=== PATIENT | female | born 1960 | race Caucasian/White ===

== ENCOUNTER 2016-11-27 11:48 | Outpatient (CLI) | payer OTHER ==
[2016-11-27] MEDS ORDERED: diphenhydrAMINE 25 MG CAP PO ONE (12:30)
[2016-11-27] MEDS ORDERED: ACETAMINOPHEN 325 MG TAB PO ONE (12:30)
== END 2016-11-27 15:40 | disposition home or self-care (01) ==
LOC: FOBOP 11:48
PROVIDERS: ATTEND Internal Medicine Hematology & Oncology
PROC: 30233N1 Transfusion of Nonautologous Red Blood Cells into Peripheral Vein, Percutaneous Approach (ICD-10-PCS; principal; 2016-11-27)
DX: D61.818 Other pancytopenia (principal)
CPT/HCPCS: 36430; P9040

== ENCOUNTER 2016-12-29 20:01 | Emergency (ER) | payer OTHER ==
--- NOTE | 2016-12-29 20:25 | EDPHY ---
HPI/HX/ROS/PE/MDM Narrative: CHIEF COMPLAINT: Fever HPI: The patient is a 56 y/o female, with a history of hemophagocytic lymphohistiocytosis, arriving in the ED at the recommendation of her PCP due to fever of 102.4F this afternoon. She has an associated mild nonproductive cough. She notes right-sided abdominal pain for the last 3.5 weeks that is sometimes aggravated by walking. No vomiting, diarrhea, dysuria. She was admitted on 10/03 for more than a month after presenting with similar symptoms. REVIEW OF SYSTEMS: Aside from elements discussed in the HPI, a comprehensive 10-point review of systems was reviewed and is negative. PMH: hemophagocytic lymphohistiocytosis, pancytopenia, neutropenic fever, transaminitis/hyperbilirubinemia, acute hypoxia, hypothyroidism, oral ulcers, kidney injury, GERD SOCIAL HISTORY: Friend at bedside Prior medical records reviewed including admission 10/03/16 for similar. Oncologist: Dr. Rutherford PHYSICAL EXAM: General:Patient is alert, in no acute distress. ENT:Eyes are normal to inspection. ENT inspection normal. Neck: Normal inspection. Full range of motion. Respiratory:No respiratory distress. Breath sounds normal bilaterally. Cardiovascular: Regular rate and rhythm. Strong peripheral pulses. Normal cap refill. Abdomen:The abdomen is nontender to palpation. There are no peritoneal signs. There are normal bowel sounds. Back: Normal to inspection. No tenderness to palpation. Skin: Normal color. No rash. Warm and dry. Extremities: Normal appearance. Full range of motion. Neuro: Oriented x3. Normal motor function. Normal sensory function. ED Course: IV established. Labs drawn including CBC, CHEM, LDH, LFT, ferritin. UA ordered. MDM: This patient presents with isolated fever at home in the absence of other specific symptoms. She has a very rare and complex immune disorder which she is well followed for by the oncology team. I spoke extensively with Dr. Madeline Patiño prior to the patient's arrival and she recommended a series of lab tests that she would like performed, including LFTs, LDH, ferritin and CBC. These are essentially all of the patient's baseline. Her ferritin level continues to decrease. Her flu swab was negative. The patient has a negative urinalysis. She has an extremely mild cough but her lungs sound clear and she is not hypoxic. I offered her chest x-ray, but we agreed to postpone this for now. I discussed the case again with Dr. Patiño after laboratory results were back and she agrees the patient can be safely discharged home tonight and they will follow her closely in clinic. She requests that we do not place the patient on empiric antibiotics at this time. Blood cultures were sent. The patient has mild fever of unknown source. - Data Points Laboratory Results: Laboratory Results 12/29/16 21:00 12/29/16 21:00 12/29/16 12/29/16 12/29/16 21:30 21:10 21:00 WBC 4.67 10^3/uL (3.80-9.50) RBC 2.51 L 10^6/uL (4.18-5.33) Hgb 9.0 L g/dL (12.6-16.3) Hct 27.2 L % (38.0-47.0) MCV 108.4 H fL (81.5-99.8) MCH 35.9 H pg (27.9-34.1) MCHC 33.1 g/dL (32.4-36.7) RDW 19.6 H % (11.5-15.2) Plt Count 131 L 10^3/uL (150-400) MPV 9.6 fL (8.7-11.7) Neut % (Auto) 59.6 % (39.3-74.2) Lymph % (Auto) 21.4 % (15.0-45.0) [place] % (Auto) 16.5 H % (4.5-13.0) Eos % (Auto) 1.7 % (0.6-7.6) Baso % (Auto) 0.4 % (0.3-1.7) Nucleat RBC Rel Count 0.0 % (0.0-0.2) Absolute Neuts (auto) 2.78 10^3/uL (1.70-6.50) Absolute Lymphs (auto) 1.00 10^3/uL (1.00-3.00) Absolute Monos (auto) 0.77 10^3/uL (0.30-0.80) Absolute Eos (auto) 0.08 10^3/uL (0.03-0.40) Absolute Basos (auto) 0.02 10^3/uL (0.02-0.10) Absolute Nucleated RBC 0.00 10^3/uL (0-0.01) Immature Gran % 0.4 % (0.0-1.1) Immature Gran # 0.02 10^3/uL (0.00-0.10) Sodium 140 mEq/L (134-144) Potassium 3.8 mEq/L (3.5-5.2) Chloride 104 mEq/L (97-110) Carbon Dioxide 27 mEq/l (22-31) Anion Gap 9 mEq/L (8-16) BUN 14 mg/dL (7-23) Creatinine 0.8 mg/dL (0.6-1.0) Estimated GFR > 60 Glucose 92 mg/dL (70-100) Calcium 8.6 mg/dL (8.5-10.4) Ferritin 863.0 H ng/mL (6.2-264.0) Total Bilirubin 0.5 mg/dL (0.1-1.4) Conjugated Bilirubin 0.1 mg/dL (0.0-0.5) Unconjugated Bilirubin 0.4 mg/dL (0.0-1.1) AST 22 IU/L (14-46) ALT 31 IU/L (9-52) Alkaline Phosphatase 52 IU/L (38-126) Lactate Dehydrogenase 564 IU/L (313-618) Total Protein 6.2 L g/dL (6.3-8.2) Albumin 3.2 L g/dL (3.5-5.0) Urine Color YELLOW Urine Appearance CLEAR Urine pH 8.0 H (5.0-7.5) Ur Specific [place] 1.009 (1.002-1.030) Urine Protein NEGATIVE (NEGATIVE) Urine Ketones NEGATIVE (NEGATIVE) Urine Blood NEGATIVE (NEGATIVE) Urine Nitrate NEGATIVE (NEGATIVE) Urine Bilirubin NEGATIVE (NEGATIVE) Urine Urobilinogen NEGATIVE EU (0.2-1.0) Ur Leukocyte Esterase NEGATIVE (NEGATIVE) Ur Culture Indicated? NOT INDICATED (NI) Urine Glucose NEGATIVE (NEGATIVE) Influenza Typ A,B (DFA) NEGATIVE FOR FLU (NEGATIVE) General Time Seen by Provider: 12/29/16 20:14 Initial Vital Signs: Initial Vital Signs Temperature (C) 37.7 C 12/29/16 20:06 Heart Rate 128 H 12/29/16 20:06 Respiratory Rate 16 12/29/16 20:06 Blood Pressure 110/80 12/29/16 20:06 O2 Sat (%) 97 12/29/16 20:06 O2 Delivery Mode Room Air Allergies/Adverse Reactions: Sulfa (Sulfonamide Antibiotics) Allergy (Mild, Verified 10/04/16 08:56) Hives Home Medications: Medication Instructions Recorded Levothyroxine [Synthroid 50 mcg 50 mcg PO DAILY06 #30 tab 11/07/16 (*)] Departure - Departure Disposition: Home, Routine, Self-Care Clinical Impression: Fever, Hemophagocytic lymphohistiocytosis Condition: Good Instructions: Fever in Adults (ED) Additional Instructions: Follow up with your oncologist this week. Return to the ED for worsening of condition. Referrals: Ronal Fuentes DO [Primary Care Provider] - As per Instructions Darien Rutherford MD [Medical Doctor] - As per Instructions Report Scribed for: Marty Lamb Report Scribed by: Cheri Cannon Date of Report: 12/29/16 Time of Report: 20:26 Physician Review and Approval Statement: Portions of this note were transcribed by an ED scribe. I personally performed the history, physical exam, and medical decision making; and confirm the accuracy of the information in the transcribed note.
[2016-12-29 21:11] LABS: % IMMATURE GRANULYOCYTES 0.4 % (0.0-1.1); ABSOLUTE IMMATURE GRANULOCYTES 0.02 10^3/uL (0.00-0.10); ADD DIFF? NO; ADD MORPH? NO; ADD SCAN? NO; ATYPICAL LYMPHOCYTE FLAG 60 (0-99); FRAGMENT RBC FLAG 20 (0-99); HEMATOCRIT 27.2 % (38.0-47.0); LEFT SHIFT FLG 0 (0-99); LIPEMIA HEMOLYSIS FLAG 80 (0-99); MEAN CELL HEMOGLOBIN 35.9 pg (27.9-34.1); MEAN CELL HEMOGLOBIN CONCENTR. 33.1 g/dL (32.4-36.7); MEAN CELL VOLUME 108.4 fL (81.5-99.8); MEAN PLATELET VOLUME 9.6 fL (8.7-11.7); PLATELET CLUMPS FLAG 0 (0-99); PLATELET COUNT 131 10^3/uL (150-400); RED BLOOD CELL COUNT 2.51 10^6/uL (4.18-5.33); RED CELL DISTRIBUTION WIDTH 19.6 % (11.5-15.2)
[2016-12-29 21:21] LABS: ALANINE AMINOTRANSFERASE 31 IU/L (9-52); ALBUMIN 3.2 g/dL (3.5-5.0); ALKALINE PHOSPHATASE 52 IU/L (38-126); ANION GAP 9 mEq/L (8-16); ASPARTATE AMINOTRANSFERASE 22 IU/L (14-46); BILIRUBIN,TOTAL 0.5 mg/dL (0.1-1.4); BILIRUBIN-CONJUGATED 0.1 mg/dL (0.0-0.5); BILIRUBIN-UNCONJUGATED 0.4 mg/dL (0.0-1.1); CALCIUM 8.6 mg/dL (8.5-10.4); CARBON DIOXIDE 27 mEq/l (22-31); CHLORIDE 104 mEq/L (97-110); CREATININE 0.8 mg/dL (0.6-1.0); GLOMERULAR FILTRATION RATE > 60; GLUCOSE 92 mg/dL (70-100); LACTATE DEHYDROGENASE 564 IU/L (313-618); POTASSIUM 3.8 mEq/L (3.5-5.2); SODIUM 140 mEq/L (134-144); TOTAL PROTEIN 6.2 g/dL (6.3-8.2)
[2016-12-29 21:32] LABS: COLOR YELLOW; LEUKOCYTE ESTERASE,URINE NEGATIVE (NEGATIVE); NITRITE,URINE NEGATIVE (NEGATIVE)
[2016-12-29 22:38] VITALS: BP 107/76; PULSE 109; RESP 16; O2SAT 96
[2016-12-29 22:39] VITALS: TEMP 99.7
== END 2016-12-29 22:37 | disposition home or self-care (01) ==
DX: D76.1 Hemophagocytic lymphohistiocytosis (principal)

== ENCOUNTER → 2017-01-07 | Outpatient (CLI) | payer OTHER | LOC: FIMAGING 15:58 | PROVIDERS: ATTEND Internal Medicine Hematology & Oncology | DX: R10.11 Right upper quadrant pain (principal); R16.0 Hepatomegaly, not elsewhere classified; R93.8 Abnormal findings on diagnostic imaging of other specified body structures; D61.818 Other pancytopenia; D76.1 Hemophagocytic lymphohistiocytosis ==

== ENCOUNTER → 2017-01-08 | Day surgery (SDC) | payer OTHER | END | disposition home or self-care (01) | LOC: FIMAGING 09:05 | PROVIDERS: ATTEND Internal Medicine Hematology & Oncology | PROC: 02HV33Z Insertion of Infusion Device into Superior Vena Cava, Percutaneous Approach (ICD-10-PCS; principal; 2017-01-08) | DX: D76.1 Hemophagocytic lymphohistiocytosis (principal) | CPT/HCPCS: 36569; 77001; C1751 ==

== ENCOUNTER 2017-01-13 10:47 | Day surgery (SDC) | payer OTHER ==
[2017-01-13] MEDS ORDERED: FLUMAZENIL 0.5 MG/5 ML MDV IVP ONE (10:59)
[2017-01-13] MEDS ORDERED: MIDAZOLAM 2 MG/2 ML VIAL ONE (11:00)
[2017-01-13] MEDS ORDERED: fentaNYL 100 MCG/2 ML INJ ONE (11:00)
[2017-01-13] MEDS ORDERED: NALOXONE HCL 0.4 MG/ML INJ ONE (11:00)
[2017-01-13] MEDS ORDERED: methylPREDNISolone SOD SUCC 125 MG/2 ML VIAL ONE (11:00)
[2017-01-13] MEDS ORDERED: NS 1,000 ML IV SCH (11:00)
[2017-01-13 11:41] LABS: HEMATOCRIT 29.5 % (38.0-47.0)
[2017-01-13 11:54] LABS: PLATELET COUNT 41 10^3/uL (150-400)
[2017-01-13 11:56] LABS: CREATININE 0.6 mg/dL (0.6-1.0); GLOMERULAR FILTRATION RATE > 60
[2017-01-13] MEDS ORDERED: IOPAMIDOL (ISOVUE-300) 100 ML BTL IV ONE (11:56)
[2017-01-13] MEDS ORDERED: methylPREDNISolone SOD SUCC 125 MG/2 ML VIAL IVP ONE (12:00)
[2017-01-13 12:02] LABS: INR 1.13 (0.83-1.16); PROTIME(PATIENT) 14.4 SEC (12.0-15.0)
[2017-01-13 12:03] LABS: APTT 31.3 SEC (23.0-38.0)
[2017-01-13 12:39] LABS: PLATELET ESTIMATE DECREASED (ADEQ)
[2017-01-13] MEDS ORDERED: oxyCODONE IR 5 MG TAB ONE ×2 (18:46→19:52)
[2017-01-13] MEDS ORDERED: oxyCODONE IR 5 MG TAB PO PRN (19:50)
[2017-01-13] MEDS ORDERED: ONDANSETRON 4 MG/2 ML VIAL IVP PRN (19:50)
[2017-01-15 15:49] LABS: FINAL DIAGNOSIS See Comments; MICROSCOPIC DESCRIPTION See Comments
== END 2017-01-13 21:22 | disposition home or self-care (01) ==
LOC: FIMAGING 10:47
PROVIDERS: ATTEND Internal Medicine Hematology & Oncology
PROC: 0FB23ZX Excision of Left Lobe Liver, Percutaneous Approach, Diagnostic (ICD-10-PCS; principal; 2017-01-13 18:00)
DX: K76.9 Liver disease, unspecified (principal); D76.1 Hemophagocytic lymphohistiocytosis; D61.818 Other pancytopenia
CPT/HCPCS: 47000; 77012; 99152; 99153; P9037; 88184-90; 88185-91; 99001-90; J1200; J2250; J2310; J3010; Q9967

== ENCOUNTER 2017-01-16 15:47 | Inpatient (IN) | payer OTHER ==
--- NOTE | 2017-01-16 15:55 | EDPHY ---
H & P Time Seen by Provider: 01/16/17 15:55 HPI/ROS: CHIEF COMPLAINT: Right facial droop HISTORY OF PRESENT ILLNESS: Patient noticed today that "my mouth is not working right" while trying to use a straw. noticed difficulty closing her left eyelid 2 days ago and their daughter Kalyani noted comments about facial asymmetry as long goes this past weekend. Otherwise no headache and no difficulty with speech in no double vision. No weakness or numbness in extremities and no vertigo or ataxia symptoms. REVIEW OF SYSTEMS: Eye: no change in vision ENT: no sore throat Cardiac: no chest pain or syncope Pulmonary: no cough or SOB Abdomen: no vomiting, diarrhea, abdominal pain Musculoskeletal: no back pain or neck pain Skin: no rash Neuro: no headache Constitutional: no fever : no urinary symptoms A comprehensive 10 point review of systems is otherwise negative aside from elements mentioned in the history of present illness. 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 Eyes: No scleral icterus. No proptosis in extraocular motion intact. ENT, Mouth: Normal mucous membranes. Respiratory: Normal respiratory effort, breath sounds equal, lungs are clear to auscultation. Cardiovascular: Regular rate and rhythm. Gastrointestinal: Abdomen is soft and non tender. Neurological: Alert and oriented x3. Normally conversant. Normal movement and sensation in all extremities.] Normal [id number] bilaterally and no pronator drift. She does have a mild right facial droop which does involve the forehead, but is able to close both eyelids fully. Skin: Warm and dry, no rashes. Musculoskeletal: No peripheral edema and no joint swelling. Psychiatric: Not agitated. Emergency Department course/MDM: Patient was sent for MRI brain to evaluate for intracranial mass or bleeding. Clinical examination initially makes Hanson's palsy more likely. Database from laboratory drawn at 11:38 a.m. today shows white blood cell count 2.4, hemoglobin 8, hematocrit 23.9, platelets 14331. Chemistries are sodium 135 , potassium 3.8, glucose 93, BUN and creatinine 20 and 0.8. 174: reviewed MRI with patient and family 1741: Discussed with Dr. Linder who will review the MRI images; his impression at 174 nonsurgical. 1744: Discussed with [place], transfuse platelets; admit to hospitalist Smoking Status: Never smoked Constitutional: Initial Vital Signs Temperature (C) 36.6 C 01/16/17 16:16 Heart Rate 91 01/16/17 16:16 Respiratory Rate 16 01/16/17 16:16 Blood Pressure 102/74 01/16/17 16:16 O2 Sat (%) 95 01/16/17 16:16 O2 Delivery Mode Room Air Allergies/Adverse Reactions: Sulfa (Sulfonamide Antibiotics) Allergy (Mild, Verified 10/04/16 08:56) Hives CT IV CONTRAST Allergy (Uncoded 01/10/17 18:21) Home Medications: Medication Instructions Recorded Levothyroxine [Synthroid 50 mcg 50 mcg PO DAILY06 #30 tab 11/07/16 (*)] Etoposide [Vepesid] 0 mg IV TH 01/10/17 Dexamethasone [Decadron 4 MG (*)] 16 mg PO DAILY 01/16/17 Medical Decision Making - Diagnostics Imaging: MRI shows 7 scattered hemorrhagic lesions in brain, [place]uani at 1730. Personally reviewed by myself. Differential Diagnosis: Differential considered including but not limited to intracranial mass, intracranial bleed, Hanson's palsy, ischemic stroke. Critical Care Time: Critical care time spent by me, Dr. Juarez, exclusively with the care of this patient was 30 minutes, exclusive of PA or LAB INSTRUCTOR time and exclusive of separate procedures. The organ system at risk was neurologic and hematologic and I ordered platelet transfusion, consultation with hospitalist and iron assorter and neurosurgeon; to stabilize the patient and prevent worsening of the patient' s condition. - Data Points Laboratory Results: 01/16/17 17:45 Patient ABO/Rh A POSITIVE Antibody Screen NEGATIVE Medications Given: Discontinued Medications Sodium Chloride (Ns) 1,000 mls @ 0 mls/hr IV ONCE ONE PRN Reason: Wide Open Stop: 01/16/17 18:26 Last Admin: 01/16/17 18:30 Dose: 1,000 mls Departure - Departure Disposition: [facility] Inpatient Acute Clinical Impression: Thrombocytopenia, Intracranial hemorrhage Condition: Serious
[2017-01-16] MEDS ORDERED: GADOBUTROL 10 ML VIAL IVP ONE (16:50)
[2017-01-16] MEDS ORDERED: NS 1,000 ML IV ONE (18:25)
[2017-01-16 18:26] LABS: % IMMATURE GRANULYOCYTES 0.4 % (0.0-1.1); ABSOLUTE IMMATURE GRANULOCYTES 0.01 10^3/uL (0.00-0.10); ADD DIFF? NO; ADD MORPH? NO; ADD SCAN? NO; ATYPICAL LYMPHOCYTE FLAG 50 (0-99); FRAGMENT RBC FLAG 0 (0-99); HEMATOCRIT 22.2 % (38.0-47.0); HEMOGLOBIN 7.4 g/dL (12.6-16.3); LEFT SHIFT FLG 60 (0-99); LIPEMIA HEMOLYSIS FLAG 80 (0-99); MEAN CELL HEMOGLOBIN 33.9 pg (27.9-34.1); MEAN CELL HEMOGLOBIN CONCENTR. 33.3 g/dL (32.4-36.7); MEAN CELL VOLUME 101.8 fL (81.5-99.8); MEAN PLATELET VOLUME 11.8 fL (8.7-11.7); PLATELET CLUMPS FLAG 0 (0-99); PLATELET COUNT 52 10^3/uL (150-400); RED BLOOD CELL COUNT 2.18 10^6/uL (4.18-5.33); RED CELL DISTRIBUTION WIDTH 16.2 % (11.5-15.2)
[2017-01-16 18:30] LABS: APTT 28.9 SEC (23.0-38.0); INR 1.12 (0.83-1.16); PROTIME(PATIENT) 14.3 SEC (12.0-15.0)
[2017-01-16 18:44] LABS: ANION GAP 10 mEq/L (8-16); CARBON DIOXIDE 22 mEq/l (22-31); CHLORIDE 101 mEq/L (97-110); CREATININE 0.6 mg/dL (0.6-1.0); GLOMERULAR FILTRATION RATE > 60; GLUCOSE 185 mg/dL (70-100); POTASSIUM 4.5 mEq/L (3.5-5.2); SODIUM 133 mEq/L (134-144)
[2017-01-16] MEDS ORDERED: ONDANSETRON DISINTEGRATING 4 MG TAB PO PRN (18:57)
[2017-01-16] MEDS ORDERED: ONDANSETRON 4 MG/2 ML VIAL IVP PRN (18:57)
[2017-01-16] MEDS ORDERED: D50W 25 GM/50 ML SYR IVP PRN (19:00)
--- NOTE | 2017-01-16 19:05 | PDGENHP ---
History and Physical - Chief Complaint Acute facial droop - History of Present Illness PCP: Dr. Burrell Primary oncologist: Dr. Rutherford HPI: 56-year-old female presenting with acute right facial droop characterized as inability to correctly move the right side of her mouth, physically evident in her inability to manipulate a strong, not associated with any dysphagia or odynophagia. She reports associated left eyelid palsy approximately 2 days ago as well as associated diplopia with duration of symptoms approximately 10 minutes several days prior. Her acute facial paresis onset was the morning of presentation and duration has been persistent thereafter. She reports that the symptoms are exacerbated when she attempts to eat drink or smile. She has not recently changed any of her medications and she denies any infectious symptoms. She did recently experience some epistaxis but has not experienced any melena or hematochezia. She is currently taking etoposide for HLH. History Information - Allergies/Home Medication List Allergies/Adverse Reactions: Sulfa (Sulfonamide Antibiotics) Allergy (Mild, Verified 10/04/16 08:56) Hives CT IV CONTRAST Allergy (Uncoded 01/10/17 18:21) Home Medications: Etoposide [Vepesid] 0 mg IV TH 01/10/17 [Last Taken 01/16/17] Dexamethasone [Decadron 4 MG (*)] 16 mg PO DAILY 01/16/17 [Last Taken 01/16/17] I have personally reviewed and updated: family history, medical history, social history, surgical history - Past Medical History Additional medical history: HLH diagnosed in September of 2016 initiated on the CLINIC DIRECTOR-16 regimen, currently taking daily top side dexamethasone - Surgical History Reports: no pertinent surgical hx - Family History Additional family history: Mother with breast cancer - Social History Smoking Status: Never smoked Alcohol Use: None Drug Use: None Additional social history: Normally independent in her ADLs Review of Systems ROS: 10pt was reviewed & negative except for what was stated in HPI & below Neurological: Reports: other (Facial paresis, diplopia) Physical Exam Temp Pulse Resp BP Pulse Ox 36.6 C 84 16 91/58 L 97 01/16/17 17:21 01/16/17 18:33 01/16/17 18:33 01/16/17 18:33 01/16/17 18:33 Constitutional: no apparent distress, appears nourished, not in pain, chronically ill appearing Eyes: PERRL, anicteric sclera, EOMI Ears, Nose, Mouth, Throat: moist mucous membranes, hearing normal, ears appear normal, no oral mucosal ulcers Cardiovascular: regular rate and rhythym, no murmur, rub, or gallop, No edema Respiratory: no respiratory distress, no rales or rhonchi, clear to auscultation Gastrointestinal: normoactive bowel sounds, soft, non-tender abdomen, no palpable masses Skin: warm, normal color, no rashes or abrasions, no fluctuance, no induration, No mottled Neurologic: AAOx3, sensation intact bilaterally, CN II-XII Intact, facial droop (Right facial palsy), No weakness (Motor strength 5/5 bilateral upper and lower extremity), No asterixes Psychiatric: interacting appropriately, not anxious, not encephalopathic, thought process linear Lab Data & Imaging Review 01/16/17 18:00 01/16/17 18:00 WBC 2.32 10^3/uL (3.80-9.50) L 01/16/17 18:00 RBC 2.18 10^6/uL (4.18-5.33) L 01/16/17 18:00 Hgb 7.4 g/dL (12.6-16.3) L 01/16/17 18:00 Hct 22.2 % (38.0-47.0) L 01/16/17 18:00 MCV 101.8 fL (81.5-99.8) H 01/16/17 18:00 MCH 33.9 pg (27.9-34.1) 01/16/17 18:00 MCHC 33.3 g/dL (32.4-36.7) 01/16/17 18:00 RDW 16.2 % (11.5-15.2) H 01/16/17 18:00 Plt Count 52 10^3/uL (150-400) L 01/16/17 18:00 MPV 11.8 fL (8.7-11.7) H 01/16/17 18:00 Neut % (Auto) 87.1 % (39.3-74.2) H 01/16/17 18:00 Lymph % (Auto) 10.3 % (15.0-45.0) L 01/16/17 18:00 [place] % (Auto) 2.2 % (4.5-13.0) L 01/16/17 18:00 Eos % (Auto) 0.0 % (0.6-7.6) L 01/16/17 18:00 Baso % (Auto) 0.0 % (0.3-1.7) L 01/16/17 18:00 Nucleat RBC Rel Count 0.0 % (0.0-0.2) 01/16/17 18:00 Absolute Neuts (auto) 2.02 10^3/uL (1.70-6.50) 01/16/17 18:00 Absolute Lymphs (auto) 0.24 10^3/uL (1.00-3.00) L 01/16/17 18:00 Absolute Monos (auto) 0.05 10^3/uL (0.30-0.80) L 01/16/17 18:00 Absolute Eos (auto) 0.00 10^3/uL (0.03-0.40) L 01/16/17 18:00 Absolute Basos (auto) 0.00 10^3/uL (0.02-0.10) L 01/16/17 18:00 Absolute Nucleated RBC 0.00 10^3/uL (0-0.01) 01/16/17 18:00 Immature Gran % 0.4 % (0.0-1.1) 01/16/17 18:00 Immature Gran # 0.01 10^3/uL (0.00-0.10) 01/16/17 18:00 PT 14.3 SEC (12.0-15.0) 01/16/17 18:00 INR 1.12 (0.83-1.16) 01/16/17 18:00 APTT 28.9 SEC (23.0-38.0) 01/16/17 18:00 VBG Lactic Acid 1.5 mmol/L (0.7-2.1) 01/16/17 18:00 Sodium 133 mEq/L (134-144) L 01/16/17 18:00 Potassium 4.5 mEq/L (3.5-5.2) 01/16/17 18:00 Chloride 101 mEq/L (97-110) 01/16/17 18:00 Carbon Dioxide 22 mEq/l (22-31) 01/16/17 18:00 Anion Gap 10 mEq/L (8-16) 01/16/17 18:00 BUN 16 mg/dL (7-23) 01/16/17 18:00 Creatinine 0.6 mg/dL (0.6-1.0) 01/16/17 18:00 Estimated GFR > 60 01/16/17 18:00 Glucose 185 mg/dL (70-100) H 01/16/17 18:00 Patient ABO/Rh A POSITIVE 01/16/17 17:45 Antibody Screen NEGATIVE 01/16/17 17:45 Visualized and Interpreted imaging results: Yes Interpretation: MRI demonstrating bilateral focal lesions with surrounding hemorrhage, edema Assessment & Plan Assessment: 56-year-old female presenting with acute intracranial hemorrhage in the setting of HLH, pancytopenia Plan: 1. Intracranial hemorrhage. Acute, secondary to hemorrhagic lesions, presumed to be secondary to HLH with bilateral cerebral locations -discussed with emergency department provider Dr. Terell Juarez, has reported to me that Dr. Linder has been consulted from Neurosurgery and he does not recommend any surgical intervention at this time -admit to step-down unit with frequent neuro checks -if neurologic exam changes, order stat noncontrast head CT -neurosurgery will continue to consult in this patient's care -given patient's thrombocytopenia, will transfuse platelets at this time, per the recommendations of Dr. Barksdale 2. Vasogenic edema. Patient's MRI demonstrates lesions with surrounding vasogenic edema, currently on high-dose oral dexamethasone, no indication to increase frequency with IV administration given her current daily dosing and persistent edema -will continue patient on her daily high-dose dexamethasone she has already received today as well as insulin sliding scale 3. Hyponatremia. Potentially secondary to SIADH, continue to monitor closely potentially place patient on a free water restriction depending on tomorrow's lab results 4. Pancytopenia. Secondary to chronic HLH, no indication for blood transfusion at this time, a platelet transfusion as above 5. HLH. reviewed outside records including discharge summary by Dr. Pineda, , describes patient's most recent hospitalization for HLH identification as well as initiation on chemotherapy regiment, complicated by neutropenic fever , discharged home with prophylactic fluconazole, acyclovir, dapsone, levofloxacin, dexamethasone -appreciate daily oncology consultation 6. Transaminitis. Chronic, the arise to be secondary to the top side in the past, levels appear to be improved from previous outpatient labs Diet. Regular Prophylaxis. High risk patient, SCDs given pharm contraindication Code. Full per patient, her is her MPOA Disposition. Anticipated discharge uncertain this time, anticipated length stay is greater than 48 hours warranting inpatient admission status for acute intracranial hemorrhage in the setting of HLH and pancytopenia. The patient is high risk of morbidity and mortality, with high level of complexity given her underlying malignancy, intracranial hemorrhage, management in the setting of pancytopenia.
[2017-01-16 19:09] LABS: CALCIUM 8.1 mg/dL (8.5-10.4)
[2017-01-16] MEDS: NS W/ 20 KCl/L 1,000 ML IV SCH (20:24)
--- NOTE | 2017-01-16 21:38 | GCON ---
DATE OF CONSULTATION: 01/16/2017 REASON FOR CONSULTATION: Multiple intracranial hemorrhagic lesions with right- sided facial droop. HISTORY OF PRESENT ILLNESS: The patient is a 56-year-old woman who unfortunately has been recently diagnosed with HLH. She is treated by Dr. Rutherford of Oncology for this and in fact, recently underwent her 2nd dosage of Etoposide earlier today. Apparently, the patient noticed that she had some difficulty with left eyelid drooping on the morning of her presentation in the hospital and was therefore brought to the emergency department for an MRI scan, which demonstrated multiple intracranial lesions. A neurosurgical consultation was requested. The patient subsequently has been admitted to the intensive care unit for close monitoring and Neurosurgical consultation was requested. The patient states that she has not really noticed any issues with her eyelids, but upon further questioning, it has been occurring for approximately 48 hours. She also has noticed that she has had some difficulty with the right side of her mouth, and some difficulty with control with eating, drinking and smiling. She has also had 1 episode approximately 2 weeks ago where she had a 5 second episode where she was not responsive, but awake. She has not had any falls or head injuries associated with that episode, and it was witnessed by her . She denies any headaches. She has also had 2 transient episodes of diplopia but currently denies any issues with this. No numbness, tingling, weakness or pain of the upper or lower extremities. No ongoing balance issues. She was previously having issues with increased temperature to 103 degrees around the end of November; however, has not had any of these for the last 2 weeks. No other fevers or chills. ALLERGIES: 1. Sulfa. 2. CT IV contrast. MEDICATIONS: 1. Etoposide. 2. Dexamethasone 60 mg daily. 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 SURGICAL HISTORY: Underwent a liver biopsy, but no other pertinent surgical history. FAMILY HISTORY: Significant for mother with breast cancer. SOCIAL HISTORY: The patient denies any tobacco utilization. She otherwise denies any other illicit drug use or alcohol use. She is . REVIEW OF SYSTEMS: Complete 10-point review of systems was negative except for that as noted above in the HPI. PHYSICAL EXAMINATION: VITAL SIGNS: Blood pressure 103/65, heart rate 89, respiratory rate 17. She is saturating 99% on room air. Current temperature is 36.5. GENERAL: The patient is sitting in the bed and is in no acute distress. She is quite pleasant and cooperative with the examination. Her affect appears to be appropriate. She is accompanied by her at the bedside. HEENT head is atraumatic, normocephalic. Pupils are equal, round, reactive to light bilaterally. Extraocular movements are intact. Sclerae anicteric. Oropharynx is moist. CARDIOVASCULAR/PULMONARY: Deferred. Motor exam: She has 5/5 strength with bilateral spinneret person strength, biceps, triceps, bilateral hip flexion, hip extension, plantar dorsiflexion, extensor hallucis longus. Sensory: She has intact sensation to light touch throughout all major dermatomes of the bilateral upper and lower extremities throughout. NEUROLOGIC: She is awake, alert, oriented x3. She appears to have right-sided facial droop. Cranial nerves 2-12 are otherwise intact with tongue protrudes midline. Uvula and palate elevates symmetrically. She has intact sensation to light touch on her face bilaterally. She has intact hearing to light scratch bilaterally. Shoulder shrug is symmetric. Speech is fluent. Pupils are equal, round, reactive to light bilaterally. LABS: White count 2.32, hematocrit 22.2, platelets 52. Sodium 133, potassium 4.5. BUN 16, creatinine of 0.6. MEDICAL DECISION MAKING: Patient underwent MRI of the brain on the evening of 16 January 2017, reviewed by myself on [facility] PAX system. There is evidence of bilateral cerebral and left cerebellum hemorrhagic cortical and subcortical enhancing lesions surrounded by vasogenic edema, with a differential diagnosis of hemophagocytic lymphohistiocytosis lesions versus hemorrhagic metastases or infectious septic emboli. There is no hydrocephalus mass effect or midline shift. The largest lesion measures approximately 15 x 15 x 8 mm with surrounding edema, approximately 3 x 2 x 1 cm. There is no left meningeal enhancement. ASSESSMENT/PLAN: The patient is a 56-year-old woman with a recent diagnosis of HLH (hemophagocytic lymphohistiocytosis) for which she has recently undergone a treatment of etoposide and presented with right-sided facial droop and left lid lag. The patient is neurologically stable at this time. Imaging demonstrates multiple lesions within the cortices. Her platelets are low at approximately 52. She has been admitted to the step-down unit in the intensive care unit and will undergo q.2 hour neuro checks this evening. We plan to get a repeat head CT without contrast in the morning. I explained to the patient and her that she would unlikely require any type of neurosurgical intervention for these lesions given their size and locations. Plan is to keep her platelet level above 80,000 at this time, for which she has already been ordered platelets by Dr. Rylan Barksdale of hematology oncology. We would recommend the patient be placed on antiepileptics including Keppra for this possible seizure episode and I did explain to the patient and her that she is at increased risk of seizures with the irritation from these lesions; however, we will defer to the [facility] whether this should be started as it may interfere with her current chemotherapy regimen. Also consideration for possible workup including a cardiac echo to ensure that there was no patent foramen ovale, as possible etiology of these multiple hemorrhagic lesions. At this point, we will plan to see the patient in the morning and if she is stable likely will not require any type of interventions. Both the patient and her understood and all questions were answered. /[id number]/MODL MTDD
[2017-01-16] MEDS ORDERED: diphenhydrAMINE 50 MG CAP PO PRN (21:49)
[2017-01-16] MEDS: INSULIN LISPRO 100 UNIT/ML SC SCH (22:08)
[2017-01-17] MEDS: LEVOTHYROXINE 50 MCG TAB PO SCH (04:29)
[2017-01-17 05:09] LABS: % IMMATURE GRANULYOCYTES 0.5 % (0.0-1.1); ABSOLUTE IMMATURE GRANULOCYTES 0.01 10^3/uL (0.00-0.10); ADD DIFF? NO; ADD MORPH? NO; ADD SCAN? NO; ATYPICAL LYMPHOCYTE FLAG 0 (0-99); FRAGMENT RBC FLAG 20 (0-99); HEMOGLOBIN 7.1 g/dL (12.6-16.3); LEFT SHIFT FLG 10 (0-99); LIPEMIA HEMOLYSIS FLAG 90 (0-99); MEAN CELL HEMOGLOBIN 34.5 pg (27.9-34.1); MEAN CELL HEMOGLOBIN CONCENTR. 33.8 g/dL (32.4-36.7); MEAN CELL VOLUME 101.9 fL (81.5-99.8); PLATELET CLUMPS FLAG 0 (0-99); PLATELET COUNT 106 10^3/uL (150-400); RED BLOOD CELL COUNT 2.06 10^6/uL (4.18-5.33); RED CELL DISTRIBUTION WIDTH 16.1 % (11.5-15.2)
[2017-01-17 05:17] LABS: INR 1.12 (0.83-1.16); PROTIME(PATIENT) 14.3 SEC (12.0-15.0)
[2017-01-17 05:28] LABS: ALANINE AMINOTRANSFERASE 78 IU/L (9-52); ALBUMIN 3.1 g/dL (3.5-5.0); ALKALINE PHOSPHATASE 130 IU/L (38-126); ANION GAP 11 mEq/L (8-16); ASPARTATE AMINOTRANSFERASE 20 IU/L (14-46); BILIRUBIN,TOTAL 0.6 mg/dL (0.1-1.4); CALCIUM 8.8 mg/dL (8.5-10.4); CARBON DIOXIDE 21 mEq/l (22-31); CHLORIDE 108 mEq/L (97-110); CREATININE 0.5 mg/dL (0.6-1.0); GLOMERULAR FILTRATION RATE > 60; GLUCOSE 147 mg/dL (70-100); POTASSIUM 4.4 mEq/L (3.5-5.2); SODIUM 140 mEq/L (134-144)
[2017-01-17] MEDS: NS W/ 20 KCl/L 1,000 ML IV SCH ×2 (07:12→20:51)
[2017-01-17] MEDS: INSULIN LISPRO 100 UNIT/ML SC SCH ×3 (09:00→17:28)
[2017-01-17] MEDS ORDERED: DEXAMETHASONE 4 MG TAB PO SCH (09:00)
--- NOTE | 2017-01-17 09:08 | NEUSURGPN ---
Assessment/Plan: 56 yo F with HLH and new stroke like symptoms. 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 at bedside. Objective: AAOx3 NAD VSS MAEx4 Motor 5/5 BUE/BLE +LT Urinary Catheter in Place: No - Physician Discussed Patient with : [facility] Physical Exam - Vitals, I&O, Labs I and O 01/16/17 01/17/17 01/18/17 05:59 05:59 05:59 Intake Total 2803 Balance 2803 Weight 44.8 kg Intake: Oral (ml) 500 IV Infused (ml) 1951 NS W/ 20 KCl/L 1,000 ml @ 951 100 mls/hr IV CONT KERRIE Rx#:[id number] Platelets (ml) 352 Other: Number of Voids 2 Toilet 2 Number of Stools Toilet 1 Vital Signs Temp Pulse Resp BP Pulse Ox 36.4 C 76 16 103/53 L 99 01/17/17 07:36 01/17/17 07:36 01/17/17 07:36 01/17/17 07:36 01/17/17 07:36 Laboratory Results 01/17/17 04:40 01/17/17 04:40 ICD10 Worksheet Patient Problems: Problems Problem Status Onset Intracranial hemorrhage Acute Thrombocytopenia Acute Acquired pancytopenia Acute Hyponatremia Acute Liver enzyme elevation Acute Pancytopenia due to antineoplastic chemotherapy Acute Respiratory failure Acute
--- NOTE | 2017-01-17 11:29 | GCON ---
HEMATOLOGY/ONCOLOGY FOLLOWUP CONSULTATION REFERRING PHYSICIAN: Darien Cohen MD REASON FOR CONSULTATION: Ongoing management of hemophagocytic lymphohistiocytosis with possible LICENSED OPTICAL DISPENSER involvement and liver involvement. RECOMMENDATIONS: 1. Agree with keeping her platelets transfused to a count greater than 80,000 per Neurosurgery rosa mmendations. 2. The patient will likely need a spinal tap, and after discussion with her transplant physician, Montrell Veliz, we will consider intrathecal treatment with methotrexate and hydrocortisone. 3. The patient is currently on treatment with etoposide and dexamethasone for her relapsed HLH. Denise bender is being treated in accordance with HLH protocol-94. She received her second week of etoposide ye . ASSESSMENT: The patient was diagnosed with hemophagocytic lymphohistiocytosis late in 2015. She un derwent treatment with the HLH-94 protocol. She went into remission, but unfortunately developed a relapse in the past few weeks. She was started back on the HLH-94 protocol, which includes etoposid e and dexamethasone. She received her second week of etoposide at a dose of 150 mg/m2 yesterday. W waqaryulia she was in the office yesterday, she related that she has been having some neurologic issues, i ncluding facial paresis yesterday. She, in addition, had a left eyelid palsy, as well as had a coup le of falls in the middle of the night when she was getting up to go to the bathroom. Because of he r new neurologic symptoms, she was evaluated with an MRI of her brain, which showed up to 7 hemorrha gic lesions within her brain. She is now admitted for further treatment and followup. Her head CT was apparently stable overnight, and she will be able to get out of the intensive care unit today. She has had a recent liver biopsy for newly developed hypodense lesions within her liver. These rev ealed findings were consistent with HLH. HLH can involve the central nervous system. We had not had evidence of this up to this time, but e current findings are very suspicious for that. I have placed a call to Dr. Veliz, who is the [facility]'s transplant physician, to discuss the case with him, but it is very possible we will need to do a lumbar puncture and assess her for possible intrathecal methotrexate and hydrocortisone. Patients with HLH also may have poor platelet function, and therefore, I would concur with transfusing her t o a count greater than 80,000. Her platelets will likely continue to fall because of her etoposide. HISTORY OF PRESENT ILLNESS: Please see Assessment. PAST MEDICAL HISTORY: Essentially otherwise unremarkable. PAST SURGICAL HISTORY: Remarkable for cosmetic surgery but is otherwise unremarkable. FAMILY HISTORY: Remarkable for her mother having had breast cancer. SOCIAL HISTORY: The patient does not smoke or use alcohol. REVIEW OF SYSTEMS: Remarkable for the above-mentioned neurologic findings, as well as fatigue. Ten -system review is otherwise unremarkable. PHYSICAL EXAMINATION: GENERAL: Reveals a pale, awake, pleasant woman in no acute distress today. LUNGS: Clear to auscultation. CARDIAC: Regular rate and rhythm. ABDOMEN: Active bowel sounds. She has minor tenderness of her abdomen. LABORATORY DATA: Her CBC today shows a white count of 1.98, with a hemoglobin of 7.1, and a platele t count of 106,000. Her pro time is normal at 14.3, with an INR of 1.1, and her PTT is normal at 26 . Her creatinine is 0.5. She has mildly elevated ALT at 78 and a normal total bilirubin of 0.6. H er alkaline phosphatase is slightly elevated at 130. Thank you very much for allowing us to continue to participate in this pleasant woman's care. Shavon hurd forward to assisting with her management. /[id number]/MODL
[2017-01-17] MEDS ORDERED: DEXAMETHASONE 4 MG TAB PO ONE (11:30)
[2017-01-17] MEDS ORDERED: DEXAMETHASONE 1 MG/ML UDSYR PO SCH (11:30)
[2017-01-17] MEDS: PANTOPRAZOLE SODIUM 40 MG TAB PO SCH (11:58)
[2017-01-17] MEDS: TEARS/DEXTRAN 70/HYPROMELLOSE 15 ML OPHT.BTL EACHEYE PRN (13:18)
[2017-01-17] MEDS ORDERED: LIDOCAINE 1% 30 ML SDV ONE (13:26)
[2017-01-17] MEDS ORDERED: NA BICARBONATE 50 MEQ/50 ML VIAL ONE (13:26)
--- NOTE | 2017-01-17 16:08 | HOSPPROG ---
Hospitalist Progress Note Assessment/Plan: 1. Intracranial hemorrhage * stable CT * [place] [id number] * symptoms seem to be improving * Hyponatremia * resolved * Pancytopenia. * Secondary to chronic HLH * transfuse platelets *HLH * oncology following Subjective: right facial droop is better. No new complaints Objective: Vital Signs Temp Pulse Resp BP Pulse Ox 36.5 C 83 15 105/71 99 01/17/17 12:00 01/17/17 12:00 01/17/17 12:00 01/17/17 12:00 01/17/17 12:00 Laboratory Results 01/17/17 04:40 01/17/17 04:40 01/16/17 01/17/17 01/18/17 05:59 05:59 05:59 Intake Total 2803 Balance 2803 PT 14.3 SEC (12.0-15.0) 01/17/17 04:40 INR 1.12 (0.83-1.16) 01/17/17 04:40 discuss with Hematology - Physical Exam Constitutional: no apparent distress, appears nourished, not in pain Eyes: anicteric sclera, EOMI Ears, Nose, Mouth, Throat: moist mucous membranes, hearing normal Cardiovascular: regular rate and rhythym, no murmur, rub, or gallop Respiratory: no respiratory distress, no rales or rhonchi, clear to auscultation Gastrointestinal: normoactive bowel sounds, soft, non-tender abdomen, no palpable masses Neurologic: AAOx3, facial droop ( slight right), No weakness Psychiatric: interacting appropriately, not anxious, not encephalopathic, thought process linear ICD10 Worksheet Patient Problems: Problems Problem Status Onset Intracranial hemorrhage Acute Thrombocytopenia Acute Acquired pancytopenia Acute Hyponatremia Acute Liver enzyme elevation Acute Pancytopenia due to antineoplastic chemotherapy Acute Respiratory failure Acute
[2017-01-17 16:56] LABS: CSF APPEARANCE CLEAR (CLEAR); CSF COLOR COLORLESS (COLORLESS); CSF SUPERNATANT COLORLESS (COLORLESS); WBC, CSF 2 /mm3 (0-5)
[2017-01-17 16:57] LABS: PROTEIN, CSF 45 mg/dL (12-60)
[2017-01-17 17:09] VITALS: RESP 16
[2017-01-18] MEDS: ACETAMINOPHEN 325 MG TAB PO PRN ×2 (04:44→10:19)
[2017-01-18] MEDS: LEVOTHYROXINE 50 MCG TAB PO SCH (04:44)
[2017-01-18] MEDS: TEARS/DEXTRAN 70/HYPROMELLOSE 15 ML OPHT.BTL EACHEYE PRN ×2 (04:59→08:31)
[2017-01-18 05:28] LABS: % IMMATURE GRANULYOCYTES 0.3 % (0.0-1.1); ABSOLUTE IMMATURE GRANULOCYTES 0.01 10^3/uL (0.00-0.10); ADD DIFF? NO; ADD MORPH? NO; ADD SCAN? NO; ATYPICAL LYMPHOCYTE FLAG 0 (0-99); FRAGMENT RBC FLAG 10 (0-99); HEMATOCRIT 22.3 % (38.0-47.0); HEMOGLOBIN 7.4 g/dL (12.6-16.3); LEFT SHIFT FLG 10 (0-99); LIPEMIA HEMOLYSIS FLAG 80 (0-99); MEAN CELL HEMOGLOBIN 34.7 pg (27.9-34.1); MEAN CELL HEMOGLOBIN CONCENTR. 33.2 g/dL (32.4-36.7); MEAN CELL VOLUME 104.7 fL (81.5-99.8); MEAN PLATELET VOLUME 11.1 fL (8.7-11.7); PLATELET CLUMPS FLAG 0 (0-99); PLATELET COUNT 118 10^3/uL (150-400); RED BLOOD CELL COUNT 2.13 10^6/uL (4.18-5.33); RED CELL DISTRIBUTION WIDTH 16.5 % (11.5-15.2)
[2017-01-18 08:27] VITALS: BP 106/69; PULSE 72; TEMP 97.6; O2SAT 98
[2017-01-18] MEDS ORDERED: DEXAMETHASONE 4 MG TAB PO SCH ×2 (09:00)
[2017-01-18] MEDS: INSULIN LISPRO 100 UNIT/ML SC SCH (10:14)
[2017-01-18] MEDS: PANTOPRAZOLE SODIUM 40 MG TAB PO SCH (10:18)
--- NOTE | 2017-01-18 11:24 | SOAPPROG ---
SOAP Progress Note Assessment/Plan: Assessment: Plan:See dictated note 01/18/17 12:32 Objective: Vital Signs Temp Pulse Resp BP Pulse Ox 97.6 F 72 16 106/69 98 01/18/17 08:00 01/18/17 08:00 01/18/17 08:00 01/18/17 08:00 01/18/17 08:00 Laboratory Results 01/18/17 05:05 01/17/17 04:40 01/17/17 01/18/17 01/19/17 05:59 05:59 05:59 Intake Total 2803 1350 Output Total 1300 400 Balance 2803 50 -400 PT 14.3 SEC (12.0-15.0) 01/17/17 04:40 INR 1.12 (0.83-1.16) 01/17/17 04:40 ICD10 Worksheet Patient Problems: Problems Problem Status Onset Intracranial hemorrhage Acute Thrombocytopenia Acute Acquired pancytopenia Acute Hyponatremia Acute Liver enzyme elevation Acute Pancytopenia due to antineoplastic chemotherapy Acute Respiratory failure Acute
--- NOTE | 2017-01-18 11:51 | GHP ---
DATE OF ADMISSION: 01/16/2017 HISTORY OF PRESENT ILLNESS: The patient is a 56-year-old female with a diagnosis of hemophagocytic lymphohistiocytosis, who was initially diagnosed in September of 2016 and put into remission with HLH 94 protocol. However, unfortunately this relapsed within the last couple of weeks and she was started back on therapy with etoposide and dexamethasone. She had recently a liver biopsy which showed changes that could be consistent with HLH. She presents with recurrent fever and some new neurologic findings noted, including some right eye droop, and her MRI shows 7 hemorrhagic lesions in the brain. She had an LP yesterday which showed 2 WBCs, 2 RBCs, a normal glucose of 50 and normal protein of 45. Flow cytometry is pending. PHYSICAL EXAMINATION: GENERAL: Currently, she is awake and alert, and feels quite well and wants to go home. VITAL SIGNS: Blood pressure is 106/69. She is afebrile. HEENT: She is not icteric. There may be a slight right facial droop. LUNGS: Lungs are clear. CARDIAC EXAM: Unremarkable. ABDOMEN: benign. LABORATORY DATA: White count of 2.88, hemoglobin 7.4, hematocrit 22.3, platelets are 118,000. Chemistry panel as of yesterday shows alkaline phosphatase 130, ALT of 78, these may be improving somewhat. IMPRESSION: Patient with hemophagocytic lymphohistiocytosis, now with hemorrhagic lesions in the brain, which I think are quite worrisome for central nervous system involvement. However, the exact treatment for this issue is unclear except to aggressively systemically treat the HLH with etoposide, dexamethasone, and consideration of a stem cell transplant. I discussed her case with Dr. Jefe Veliz, who will research the matter further. He has possibly suggested intrathecal methotrexate and steroids, although as these lesions are intracerebral it is a bit unclear to me how that regimen will necessarily penetrate into the presumed affected areas. The patient's platelet count was 52,000, she did receive platelets, currently they are 118,000. I will continue to discuss the case with Dr. Veliz and with the hospitalist service. It is conceivable that discharge on 16 mg dexamethasone daily with close observation might be a reasonable course of action. She gets her etoposide weekly and is due again on January. /[id number]/MODL MTDD
--- NOTE | 2017-01-18 13:33 | HOSPPROG ---
Hospitalist Progress Note Assessment/Plan: 56 yo F w HLH here w multifocal ICH c/w SLASHER HLH involvement ICH: stable on scans sx resolved platelets > 80K start low dose keppra X 2 weeks dispo: home today has oncology follow up > 30 minutes see dc summary Subjective: feels well. anxious for dc. case d/w dr brown Objective: Vital Signs Temp Pulse Resp BP Pulse Ox 36.4 C 72 16 106/69 98 01/18/17 08:00 01/18/17 08:00 01/18/17 08:00 01/18/17 08:00 01/18/17 08:00 Laboratory Results 01/18/17 05:05 01/17/17 04:40 01/17/17 01/18/17 01/19/17 05:59 05:59 05:59 Intake Total 2803 1350 Output Total 1300 400 Balance 2803 50 -400 PT 14.3 SEC (12.0-15.0) 01/17/17 04:40 INR 1.12 (0.83-1.16) 01/17/17 04:40 - Physical Exam Constitutional: no apparent distress, appears nourished Eyes: PERRL, anicteric sclera Ears, Nose, Mouth, Throat: moist mucous membranes, hearing normal Cardiovascular: regular rate and rhythym, no murmur, rub, or gallop Respiratory: no respiratory distress, no rales or rhonchi Gastrointestinal: normoactive bowel sounds, soft, non-tender abdomen Genitourinary: No gatica in urethra Skin: warm, normal color Musculoskeletal: full muscle strength, no muscle tenderness Neurologic: AAOx3 ICD10 Worksheet Patient Problems: Problems Problem Status Onset Intracranial hemorrhage Acute Thrombocytopenia Acute Acquired pancytopenia Acute Hyponatremia Acute Liver enzyme elevation Acute Pancytopenia due to antineoplastic chemotherapy Acute Respiratory failure Acute
--- NOTE | 2017-01-18 14:08 | GDS ---
DISCHARGE DIAGNOSES: 1. Hemophagocytic lymphohistiocytosis. Also known as HLH. 2. Intracranial hemorrhage associated with HLH. CONSULTS: Neurosurgery and Oncology. PROCEDURES: Lumbar puncture showing 2 red cells, 2 white cells. HOSPITAL COURSE: Please see admission history and physical by Dr. Lorenzo Cohen. The patient prese nted with some right-sided facial droop, maybe some left-sided eye droopiness. She had a brain MRI showing multifocal, 7 in total, cortical and subcortical, minimally enhancing lesions consistent wit h hemophagocytic lymphohistiocytosis. Seen by Neurosurgery, who felt operative management was not i ndicated. She was given platelets as she was thrombocytopenic at 52. While here, platelets have re mained above 100. Goal platelet count is greater than 80,000. I discussed the case at length with Dr. Namrata Pires, who thinks she is safe for discharge. She has on cology followup in 36 hours for a repeat platelet check. DISCHARGE INSTRUCTIONS: She was discharged home on a course of 2 weeks of Keppra with one-week of t apering procedure prophylaxis as recommended by Neurosurgery. /[id number]/MODL
[2017-01-19] MEDS ORDERED: DEXAMETHASONE 4 MG TAB PO SCH (09:00)
[2017-01-20 11:28] LABS: FINAL DIAGNOSIS See Comments; MICROSCOPIC DESCRIPTION See Comments; SPECIAL STUDIES See Comments
== END 2017-01-18 17:00 | disposition home or self-care (01) | DRG 815 ==
LOC: F2N 19:37 → F1N 01-17 17:03
PROVIDERS: ADMIT Internal Medicine; ATTEND Internal Medicine
PROC: 30233R1 Transfusion of Nonautologous Platelets into Peripheral Vein, Percutaneous Approach (ICD-10-PCS; 2017-01-16)
PROC: 009U3ZX Drainage of Spinal Canal, Percutaneous Approach, Diagnostic (ICD-10-PCS; principal; 2017-01-17)
DX: D76.1 Hemophagocytic lymphohistiocytosis (principal); I62.9 Nontraumatic intracranial hemorrhage, unspecified; D69.6 Thrombocytopenia, unspecified
CPT/HCPCS: 85060-90; 88184-90; 88185-91; 92526-GN; 92610-GN; A9585; J1200; J1815; P9037

== ENCOUNTER 2017-01-21 14:36 | Outpatient (CLI) | payer OTHER ==
[2017-01-21 09:48] LABS: % IMMATURE GRANULOCYTES 0.6 % (0.0-1.1); ABSOLUTE IMMATURE GRANULOCYTES 0.01 10^3/uL (0-0.10); HEMATOCRIT 23.7 % (38.0-47.0); HEMOGLOBIN 8.1 g/dL (12.6-16.3); MEAN CELL HEMOGLOBIN 34.2 pg (27.9-34.1); MEAN CELL HEMOGLOBIN CONC. 34.2 g/dL (32.4-36.7); MEAN PLATELET VOLUME 10.2 fL (8.7-11.7); RED BLOOD CELL COUNT 2.37 10^6/uL (4.18-5.33); RED CELL DISTRIBUTION WIDTH 15.8 % (11.5-15.2)
[2017-01-21 10:09] LABS: ALANINE AMINOTRANSFERASE 48 IU/L (9-52); ALBUMIN 3.4 g/dL (3.5-5.0); ALKALINE PHOSPHATASE 111 IU/L (38-126); ANION GAP 9 mEq/L (8-16); ASPARTATE AMINOTRANSFERASE 18 IU/L (14-46); BILIRUBIN,TOTAL 0.5 mg/dL (0.1-1.4); CALCIUM 9.1 mg/dL (8.5-10.4); CARBON DIOXIDE 25 mEq/l (22-31); CHLORIDE 101 mEq/L (97-110); CREATININE 0.7 mg/dL (0.6-1.0); GLOMERULAR FILTRATION RATE > 60; GLUCOSE 103 mg/dL (70-100); POTASSIUM 3.8 mEq/L (3.5-5.2); SODIUM 135 mEq/L (134-144); TOTAL PROTEIN 6.3 g/dL (6.3-8.2)
[2017-01-21] MEDS ORDERED: ACETAMINOPHEN 325 MG TAB PO ONE (15:00)
[2017-01-21 15:54] VITALS: BP 94/57; PULSE 97; RESP 16; TEMP 98.1; O2SAT 97
== END 2017-01-21 17:10 | disposition home or self-care (01) ==
LOC: EDSTATUS 14:36 → FOBOP 14:36
PROVIDERS: ATTEND Internal Medicine Hematology & Oncology
PROC: 30233R1 Transfusion of Nonautologous Platelets into Peripheral Vein, Percutaneous Approach (ICD-10-PCS; principal; 2017-01-21)
DX: D76.1 Hemophagocytic lymphohistiocytosis (principal)
CPT/HCPCS: 36430; P9037; J1200

== ENCOUNTER → 2017-01-29 | Outpatient (CLI) | payer OTHER ==
[~2017-01-29] MED LIST: GADOBUTROL 10 ML VIAL IVP ONE
== END ==
LOC: FIMAGING 14:44
PROVIDERS: ATTEND Internal Medicine Hematology & Oncology
DX: R94.02 Abnormal brain scan (principal); D76.1 Hemophagocytic lymphohistiocytosis
CPT/HCPCS: A9585

== ENCOUNTER → 2017-01-31 | Outpatient (CLI) | payer OTHER ==
[~2017-01-31] MED LIST changes: -GADOBUTROL 10 ML VIAL IVP ONE; +HYDROCORTISONE SOD SUCCINATE IT ONE; +LIDOCAINE 1% 30 ML SDV ONE; +METHOTREXATE SODIUM IT ONE; +NA BICARBONATE 50 MEQ/50 ML VIAL ONE
[2017-01-31 08:47] LABS: INR 0.95 (0.83-1.16); PROTIME(PATIENT) 12.6 SEC (12.0-15.0)
[2017-01-31 10:47] LABS: PROTEIN, CSF 72 mg/dL (12-60)
[2017-01-31 11:07] LABS: CSF APPEARANCE CLEAR (CLEAR); CSF COLOR COLORLESS (COLORLESS); CSF SUPERNATANT COLORLESS (COLORLESS); WBC, CSF 8 /mm3 (0-5)
[2017-01-31 11:08] LABS: CSF APPEARANCE CLEAR (CLEAR); CSF COLOR COLORLESS (COLORLESS); CSF SUPERNATANT COLORLESS (COLORLESS); WBC, CSF 6 /mm3 (0-5)
== END ==
LOC: FIMAGING 07:56
PROVIDERS: ATTEND Internal Medicine Hematology & Oncology
PROC: 3E0R33Z Introduction of Anti-inflammatory into Spinal Canal, Percutaneous Approach (ICD-10-PCS; principal; 2017-01-31)
PROC: 009U3ZX Drainage of Spinal Canal, Percutaneous Approach, Diagnostic (ICD-10-PCS; principal; 2017-01-31)
PROC: 3E0R305 Introduction of Other Antineoplastic into Spinal Canal, Percutaneous Approach (ICD-10-PCS; principal; 2017-01-31)
DX: Z51.11 Encounter for antineoplastic chemotherapy (principal); D76.1 Hemophagocytic lymphohistiocytosis
CPT/HCPCS: J9250

== ENCOUNTER → 2017-02-05 | Outpatient (CLI) | payer OTHER ==
[~2017-02-05] MED LIST changes: +ACETAMINOPHEN 325 MG TAB PO ONE; -HYDROCORTISONE SOD SUCCINATE IT ONE; -LIDOCAINE 1% 30 ML SDV ONE; -METHOTREXATE SODIUM IT ONE; -NA BICARBONATE 50 MEQ/50 ML VIAL ONE; +diphenhydrAMINE 25 MG CAP PO ONE
[2017-02-05 10:09] LABS: % IMMATURE GRANULOCYTES 0.6 % (0.0-1.1); ABSOLUTE IMMATURE GRANULOCYTES 0.01 10^3/uL (0-0.10); ABSOLUTE NRBC COUNT 0.02 10^3/uL (0-0.01); HEMATOCRIT 29.1 % (38.0-47.0); HEMOGLOBIN 9.9 g/dL (12.6-16.3); MEAN CELL HEMOGLOBIN 32.4 pg (27.9-34.1); MEAN CELL VOLUME 95.1 fL (81.5-99.8); MEAN PLATELET VOLUME 10.2 fL (8.7-11.7); RED BLOOD CELL COUNT 3.06 10^6/uL (4.18-5.33); RED CELL DISTRIBUTION WIDTH 16.5 % (11.5-15.2)
[2017-02-05 10:10] LABS: NRBC-AUTO% 1.2 % (0.0-0.2)
== END ==
LOC: RMCCLAB 06:28 → EDSTATUS 17:39 → FOBOP 17:41
PROVIDERS: ATTEND Internal Medicine Hematology & Oncology
PROC: 30233R1 Transfusion of Nonautologous Platelets into Peripheral Vein, Percutaneous Approach (ICD-10-PCS; principal; 2017-02-05)
DX: D76.1 Hemophagocytic lymphohistiocytosis (principal)
CPT/HCPCS: 36430; P9037

== ENCOUNTER → 2017-02-07 | Outpatient (CLI) | payer OTHER ==
[~2017-02-07] MED LIST changes: -ACETAMINOPHEN 325 MG TAB PO ONE; +HYDROCORTISONE SOD SUCCINATE IT ONE; +LIDOCAINE 1% 30 ML SDV ONE; +METHOTREXATE SODIUM IT ONE; +NA BICARBONATE 50 MEQ/50 ML VIAL ONE; -diphenhydrAMINE 25 MG CAP PO ONE
[2017-02-07 09:05] LABS: INR 0.98 (0.83-1.16); PROTIME(PATIENT) 12.9 SEC (12.0-15.0)
[2017-02-07 11:19] LABS: PROTEIN, CSF 54 mg/dL (12-60)
[2017-02-07 11:27] LABS: CSF APPEARANCE CLEAR (CLEAR); CSF COLOR COLORLESS (COLORLESS); CSF SUPERNATANT COLORLESS (COLORLESS)
[2017-02-07 11:48] LABS: WBC, CSF 4 /mm3 (0-5)
== END ==
LOC: FIMAGING 08:31
PROVIDERS: ATTEND Internal Medicine Hematology & Oncology
PROC: 3E0R305 Introduction of Other Antineoplastic into Spinal Canal, Percutaneous Approach (ICD-10-PCS; principal; 2017-02-07)
DX: Z51.11 Encounter for antineoplastic chemotherapy (principal); D76.1 Hemophagocytic lymphohistiocytosis
CPT/HCPCS: J9250

== ENCOUNTER → 2017-02-12 | Outpatient (CLI) | payer OTHER ==
[~2017-02-12] MED LIST changes: +GADOBUTROL 10 ML VIAL IVP ONE; -HYDROCORTISONE SOD SUCCINATE IT ONE; -LIDOCAINE 1% 30 ML SDV ONE; -METHOTREXATE SODIUM IT ONE; -NA BICARBONATE 50 MEQ/50 ML VIAL ONE
== END ==
LOC: FIMAGING 17:46
PROVIDERS: ATTEND Internal Medicine Hematology & Oncology
DX: R90.0 Intracranial space-occupying lesion found on diagnostic imaging of central nervous system (principal); R90.89 Other abnormal findings on diagnostic imaging of central nervous system
CPT/HCPCS: A9585

== ENCOUNTER → 2017-02-14 | Outpatient (CLI) | payer OTHER ==
[~2017-02-14] MED LIST changes: -GADOBUTROL 10 ML VIAL IVP ONE; +HYDROCORTISONE SOD SUCCINATE IT ONE; +LIDOCAINE 1% 30 ML SDV ONE; +METHOTREXATE SODIUM IT ONE; +NA BICARBONATE 50 MEQ/50 ML VIAL ONE
[2017-02-14 11:24] LABS: INR 0.93 (0.83-1.16); PROTIME(PATIENT) 12.4 SEC (12.0-15.0)
== END ==
LOC: FIMAGING 10:11
PROVIDERS: ATTEND Internal Medicine Hematology & Oncology
PROC: 3E0R305 Introduction of Other Antineoplastic into Spinal Canal, Percutaneous Approach (ICD-10-PCS; principal; 2017-02-14)
DX: Z51.11 Encounter for antineoplastic chemotherapy (principal); D76.1 Hemophagocytic lymphohistiocytosis; Z88.2 Allergy status to sulfonamides
CPT/HCPCS: J9250

== ENCOUNTER 2017-03-18 10:06 | Outpatient (CLI) | payer OTHER ==
[2017-03-17 16:30] LABS: % IMMATURE GRANULOCYTES 4.3 % (0.0-1.1); ABSOLUTE IMMATURE GRANULOCYTES 0.12 10^3/uL (0-0.10); ABSOLUTE NRBC COUNT 0.03 10^3/uL (0-0.01); HEMATOCRIT 21.1 % (38.0-47.0); MEAN CELL HEMOGLOBIN 34.1 pg (27.9-34.1); MEAN CELL HEMOGLOBIN CONC. 33.2 g/dL (32.4-36.7); MEAN CELL VOLUME 102.9 fL (81.5-99.8); MEAN PLATELET VOLUME 10.4 fL (8.7-11.7); RED BLOOD CELL COUNT 2.05 10^6/uL (4.18-5.33)
[2017-03-17 16:34] LABS: NRBC-AUTO% 1.1 % (0.0-0.2)
[2017-03-17 16:47] LABS: ALANINE AMINOTRANSFERASE 47 IU/L (9-52); ALBUMIN 3.6 g/dL (3.5-5.0); ALKALINE PHOSPHATASE 61 IU/L (38-126); ANION GAP 6 mEq/L (8-16); ASPARTATE AMINOTRANSFERASE 24 IU/L (14-46); BILIRUBIN,TOTAL 0.7 mg/dL (0.1-1.4); CALCIUM 8.8 mg/dL (8.5-10.4); CARBON DIOXIDE 25 mEq/l (22-31); CHLORIDE 100 mEq/L (97-110); CREATININE 0.6 mg/dL (0.6-1.0); GLOMERULAR FILTRATION RATE > 60; GLUCOSE 229 mg/dL (70-100); POTASSIUM 5.4 mEq/L (3.5-5.2); SODIUM 131 mEq/L (134-144); TOTAL PROTEIN 5.8 g/dL (6.3-8.2)
[2017-03-18] MEDS ORDERED: diphenhydrAMINE 25 MG CAP PO ONE (11:00)
[2017-03-18] MEDS ORDERED: ACETAMINOPHEN 325 MG TAB PO ONE (11:00)
[2017-03-18] MEDS ORDERED: POLYETHYLENE GLYCOL 3350 17 GM PKT PO ONE (12:00)
== END 2017-03-18 17:27 | disposition home or self-care (01) ==
LOC: FOBOP 10:06
PROVIDERS: ATTEND Internal Medicine Hematology & Oncology
PROC: 30233N1 Transfusion of Nonautologous Red Blood Cells into Peripheral Vein, Percutaneous Approach (ICD-10-PCS; principal; 2017-03-18)
DX: D76.3 Other histiocytosis syndromes (principal)
CPT/HCPCS: 36430; P9040

== ENCOUNTER → 2017-03-28 | Outpatient (CLI) | payer OTHER ==
[~2017-03-28] MED LIST changes: +GADOBUTROL 10 ML VIAL IVP ONE; -HYDROCORTISONE SOD SUCCINATE IT ONE; -LIDOCAINE 1% 30 ML SDV ONE; -METHOTREXATE SODIUM IT ONE; -NA BICARBONATE 50 MEQ/50 ML VIAL ONE
== END ==
LOC: FIMAGING 14:31
PROVIDERS: ATTEND Internal Medicine Hematology & Oncology
DX: G93.9 Disorder of brain, unspecified (principal)
CPT/HCPCS: A9585

== ENCOUNTER 2017-03-31 17:06 | Emergency (ER) | payer OTHER ==
[2017-03-31] MEDS ORDERED: NS 1,000 ML IV ONE ×2 (17:53→20:23)
--- NOTE | 2017-03-31 17:58 | EDPHY ---
H & P Stated Complaint: Decreased urine and stool Time Seen by Provider: 03/31/17 17:18 HPI/ROS: CHIEF COMPLAINT: urinary retention HISTORY OF PRESENT ILLNESS: The patient is a 56-year-old female with a history of hemophagocytic lymphohistocytosis. She presents to the emergency department with her complaining of inability to urinate significantly for the last 12 hours. She states that she saw Dr. Rutherford her oncologist this morning. She was started on cyclosporin 3 days ago in addition to her steroids and other chemotherapy medications. She denies having any back pain or trauma. She has intermittent fevers but states that this is baseline for her HLH. She denies any nausea. She has not had a bowel movement in about 5 days but states this is not very concerning to her. She denies any abdominal pain. She states that she has tried to urinate several times but has only urinated about a tsp each time. She has been drinking water regularly. REVIEW OF SYSTEMS: Constitutional: denies: chills, fever, recent illness, recent injury EENTM: denies: blurred vision, double vision, nose congestion Respiratory: denies: cough, shortness of breath Cardiac: denies: chest pain, irregular heart rate, lightheadedness, palpitations Gastrointestinal/Abdominal: denies: abdominal pain, diarrhea, nausea, vomiting, blood streaked stools Genitourinary: See HPI Musculoskeletal: denies: joint pain, muscle pain Skin: denies: lesions, rash, jaundice, bruising Neurological: denies: headache, numbness, paresthesia, tingling, dizziness, weakness Hematologic/Lymphatic: denies: blood clots, easy bleeding, easy bruising Immunologic/allergic: denies: HIV/AIDS, transplant EXAM: GENERAL: Well-appearing, well-nourished and in no acute distress. HEAD: Atraumatic, normocephalic. EYES: Pupils equal round and reactive to light, extraocular movements intact, sclera anicteric, conjunctiva are normal. ENT: TMs normal, nares patent, oropharynx clear without exudates. Dry mucous membranes. NECK: Normal range of motion, supple without lymphadenopathy or JVD. LUNGS: Breath sounds clear to auscultation bilaterally and equal. No wheezes rales or rhonchi. HEART: Regular rate and rhythm without murmurs, rubs or gallops. ABDOMEN: Soft, nontender, normoactive bowel sounds. No guarding, no rebound. No masses appreciated. BACK: No CVA tenderness, no spinal tenderness, step-offs or deformities EXTREMITIES: Normal range of motion, no pitting or edema. No clubbing or cyanosis. NEUROLOGICAL: Cranial nerves II through XII grossly intact. Normal speech, normal gait. 5/5 strength, normal movement in all extremities, normal sensation , normal reflexes PSYCH: Normal mood, normal affect. SKIN: Warm, dry, normal turgor, no visible rashes or lesions. Source: Patient Exam Limitations: No limitations - Personal History Current Tetanus Diphtheria and Acellular Pertussis (TDAP): Yes - Medical/Surgical History Hx Asthma: No Hx Chronic Respiratory Disease: No Hx Diabetes: No Hx Cardiac Disease: No Hx Renal Disease: No Hx Cirrhosis: No Hx Alcoholism: No Hx HIV/AIDS: No Hx Splenectomy or Spleen Trauma: No Other PMH: PMHx: acquired pancytopenia, hemophagocytic lymphohistiocytosis, hyponatremia, liver enzyme elevation, pancytopenia due to antineoplastic chemotherapy, respiratory failure - Family History Significant Family History: No pertinent family hx - Social History Smoking Status: Never smoked Alcohol Use: None Drug Use: None Constitutional: Initial Vital Signs Temperature (C) 36.8 C 03/31/17 17:08 Heart Rate 101 H 03/31/17 17:08 Respiratory Rate 18 03/31/17 17:08 Blood Pressure 103/76 03/31/17 17:08 O2 Sat (%) 96 03/31/17 17:08 O2 Delivery Mode Room Air Allergies/Adverse Reactions: Sulfa (Sulfonamide Antibiotics) Allergy (Mild, Verified 03/31/17 17:07) Hives CT IV CONTRAST Allergy (Uncoded 02/06/17 14:54) Home Medications: Medication Instructions Recorded Levothyroxine [Synthroid 50 mcg 50 mcg PO DAILY06 #30 tab 11/07/16 (*)] Etoposide [Vepesid] 240 mg IV TH 01/10/17 Dexamethasone [Decadron 4 MG (*)] 16 mg PO DAILY 01/16/17 Acyclovir 400 mg PO BID 01/27/17 Oxycodone HCl 5 mg PO PRN 01/30/17 Nystatin 02/06/17 Medical Decision Making Procedures: Bedside ultrasound: I performed a bedside ultrasound. The patient's bladder is well visualized and is 4 x 4 x 3 cm. ED Course/Re-evaluation: Patient's bladder is small on ultrasound. She states that she has been hydrating well in general but today has not been drinking much because she was worried that she was not urinating. Will check her creatinine and give IV fluids and re-evaluate. Patient's states that they call Dr. Rutherford but he did not recommend they come to the ER. After 1 L of fluid the patient now has a bladder that is 7 x 5 x 8 cm. She does not have the urge to urinate. We will see if she can voluntarily. 8:20 p.m. the patient was successful in urinating about 350 cc. Urinalysis is unremarkable. I will give her 2nd L of fluid. Clinically she was dehydrated. This should also help with constipation. She and her were satisfied with this plan and are eager to go home after this fluid is done. Differential Diagnosis: Partial list of the Differential diagnosis considered include but were not limited to; dehydration, urinary retention, urinary tract infection, and although unlikely based on the history and physical exam, I also considered spinal cord compression, diskitis, spinal cord lesion, edema. I discussed these differential diagnoses and the plan with the patient as well as the usual and expected course. The patient understands that the diagnosis is provisional and that in medicine we are not always correct and that further workup is often warranted. Usual and customary warnings were given. All of the patient's questions were answered. The patient was instructed to return to the emergency department should the symptoms at all worsen or return, otherwise to followup with the physician as we discussed. - Data Points Laboratory Results: Laboratory Results 03/31/17 18:15 03/31/17 18:15 Medications Given: Discontinued Medications Heparin Sodium (Porcine) (Heparin Lock Flush) 500 unit IVP EDNOW ONE Stop: 03/31/17 21:21 Last Admin: 03/31/17 22:05 Dose: 500 unit Sodium Chloride (Ns) 1,000 mls @ 0 mls/hr IV ONCE ONE PRN Reason: Wide Open Stop: 03/31/17 17:54 Last Admin: 03/31/17 18:16 Dose: 1,000 mls Sodium Chloride (Ns) 1,000 mls @ 0 mls/hr IV ONCE ONE PRN Reason: Wide Open Stop: 03/31/17 20:24 Last Admin: 03/31/17 20:23 Dose: 1,000 mls Departure - Departure Disposition: Home, Routine, Self-Care Clinical Impression: Dehydration Condition: Fair Instructions: Dehydration (ED) Referrals: Ronal Fuentes DO [Primary Care Provider] - As per Instructions Darien Rutherford MD [Medical Doctor] - As per Instructions
[2017-03-31 18:27] LABS: ADD DIFF? YES; ATYPICAL LYMPHOCYTE FLAG 0 (0-99); FRAGMENT RBC FLAG 20 (0-99); HEMATOCRIT 27.1 % (38.0-47.0); HEMOGLOBIN 9.3 g/dL (12.6-16.3); LIPEMIA HEMOLYSIS FLAG 90 (0-99); MEAN CELL HEMOGLOBIN 33.2 pg (27.9-34.1); MEAN CELL HEMOGLOBIN CONCENTR. 34.3 g/dL (32.4-36.7); MEAN CELL VOLUME 96.8 fL (81.5-99.8); MEAN PLATELET VOLUME 11.2 fL (8.7-11.7); PLATELET CLUMPS FLAG 10 (0-99); PLATELET COUNT 92 10^3/uL (150-400)
[2017-03-31 18:28] LABS: ADD MORPH? NO; ADD SCAN? NO; LEFT SHIFT FLG 300 (0-99); RED CELL DISTRIBUTION WIDTH 22.5 % (11.5-15.2)
[2017-03-31 18:51] LABS: ANION GAP 7 mEq/L (8-16); CALCIUM 8.7 mg/dL (8.5-10.4); CARBON DIOXIDE 23 mEq/l (22-31); CHLORIDE 103 mEq/L (97-110); CREATININE 0.6 mg/dL (0.6-1.0); GLOMERULAR FILTRATION RATE > 60; GLUCOSE 147 mg/dL (70-100); POTASSIUM 4.2 mEq/L (3.5-5.2); SODIUM 133 mEq/L (134-144)
[2017-03-31 19:03] LABS: LARGE PLATELETS PRESENT; MICROCYTES 2+; PLATELET ESTIMATE DECREASED (ADEQ); TOXIC GRANULATION PRESENT
[2017-03-31 20:20] LABS: COLOR YELLOW; LEUKOCYTE ESTERASE,URINE NEGATIVE (NEGATIVE); NITRITE,URINE NEGATIVE (NEGATIVE)
[2017-03-31 20:22] LABS: BACTERIA NONE SEEN /hpf (NONE SEEN); MUCUS TRACE /lpf (NONE-1+)
[2017-03-31 22:10] VITALS: BP 103/70; PULSE 71; RESP 14; TEMP 97.5; O2SAT 95
== END 2017-03-31 22:09 | disposition home or self-care (01) ==
DX: E86.0 Dehydration (principal)
CPT/HCPCS: 96374; J1642

== ENCOUNTER 2017-04-13 00:17 | Inpatient (IN) | payer OTHER ==
--- NOTE | 2017-04-13 00:51 | EDPHY ---
H & P Time Seen by Provider: 04/13/17 00:31 HPI/ROS: CHIEF COMPLAINT: Fever HISTORY OF PRESENT ILLNESS: 56-year-old female presents to the emergency department by private vehicle with a fever. The patient has a history of HLH, hemophagocytic lymphohistiocytosis. She is currently undergoing chemotherapy with last infusion on , 2 days ago. She developed a temperature of 103 at home and took Tylenol. She states that she is otherwise feeling fine. She denies abdominal pain. Denies chest pain or difficulty breathing. Denies headache. She has had ongoing fatigue however this is not new. She denies neck or back pain. REVIEW OF SYSTEMS: Constitutional: Fever as above Eyes: No double or blurry vision. ENT: No sore throat. Respiratory: No cough, no shortness of breath. Cardiac: No chest pain. Gastrointestinal: No abdominal pain, vomiting or diarrhea. Genitourinary: No dysuria. Musculoskeletal: No neck or back pain. Skin: No rashes. Neurological: No headache. Past Medical/Surgical History: Hemophagocytic lymphohistiocytosis, intracranial hemorrhage with right-sided deficits. Social History: Smoking Status: Never smoked Physical Exam: General Appearance: Alert, no distress. 95/63, heart rate 103, 95% on room air. No respiratory distress. Eyes: Pupils equal and round. Extraocular motions are all intact. The right- sided facial deficits which is chronic. ENT: Mouth: Mucous membranes moist. Respiratory: No wheezing, rhonchi, or rales, lungs are clear to auscultation. Cardiovascular: Regular rate and rhythm. Gastrointestinal: Abdomen is soft and nontender, no masses, no rebound or guarding, bowel sounds normal. Neurological: Alert and oriented x 3, cranial nerves II through XII grossly intact Skin: Warm and dry, no rashes. Ecchymotic patch noted to the lateral aspect of both the left and the right leg. Musculoskeletal: Nontender to palpate along the cervical, thoracic or lumbar spine. Neck is supple. Extremities: Full range of motion and no peripheral edema. Psychiatric: Patient is oriented X 3, there is no agitation. Constitutional: Initial Vital Signs Temperature (C) 37.2 C 04/13/17 00:19 Heart Rate 103 H 04/13/17 00:19 Respiratory Rate 16 04/13/17 00:19 Blood Pressure 95/63 L 04/13/17 00:19 O2 Sat (%) 95 04/13/17 00:19 O2 Delivery Mode Room Air Allergies/Adverse Reactions: Sulfa (Sulfonamide Antibiotics) Allergy (Mild, Verified 04/13/17 00:23) Hives CT IV CONTRAST Allergy (Uncoded 02/06/17 14:54) Home Medications: Medication Instructions Recorded Levothyroxine [Synthroid 50 mcg 50 mcg PO DAILY06 #30 tab 11/07/16 (*)] Dexamethasone [Decadron 4 MG (*)] 20 mg PO MOWEFR@09 01/16/17 Acyclovir 400 mg PO BID 01/27/17 Erythromycin 0.5% 1 marck RTEYE HS 04/13/17 Herbals/Supplements -Info Only 1 ea PO DAILY 04/13/17 cycloSPORINE [Cyclosporine] 100 mg PO BID 04/13/17 cycloSPORINE [sandIMMUNE] 50 mg PO BID 04/13/17 Medical Decision Making ED Course/Re-evaluation: 56-year-old female with past medical history of HLH developed fever with a T- max of 103 tonight. She took Tylenol prior to arrival. The [employer] computer system was down. The lab called with her hemoglobin level now of 4.9 and her hematocrit of 15.1%. Her reports that her previous hemoglobin was 8 on , just 2 days ago. I am unable to access records to confirm this. I spoke with Dr. Eric Sanford was the emergency room physician and he is aware of the above findings. He recommended ordering 2 units of irradiated packed red blood cells. Blood cultures and urine culture have been ordered and are pending. Chest x- ray was unremarkable. It is not clear with the source of her fever is. The patient's care will be turned over Dr. Eric Sanford at 3:00 a.m. the patient was admitted to the hospitalist, Dr. Leon. Differential Diagnosis: Including but not limited to sepsis, urinary tract infection, pneumonia, anemia - Data Points Laboratory Results: Laboratory Results 04/13/17 01:50 04/13/17 01:50 Medications Given: Discontinued Medications Acetaminophen (Tylenol) 650 mg PO Q4HRS PRN PRN Reason: Pain, Mild/Fever, Can Take PO Stop: 10/10/17 07:29 Last Admin: 04/14/17 20:11 Dose: 650 mg Acetaminophen (Tylenol) 650 mg PO ONCE ONE Stop: 04/13/17 12:36 Last Admin: 04/13/17 16:10 Dose: Not Given Acetaminophen (Tylenol) 650 mg PO ONCE ONE Stop: 04/13/17 15:31 Last Admin: 04/13/17 16:04 Dose: 650 mg Acyclovir (Acyclovir) 400 mg PO BID [facility] Stop: 05/13/17 13:29 Last Admin: 04/15/17 08:25 Dose: 400 mg Cyclosporine (Sandimmune) 100 mg PO BID [facility] Stop: 10/10/17 13:14 Last Admin: 04/13/17 13:26 Dose: 100 mg Cyclosporine (Sandimmune) 50 mg PO BID [facility] Stop: 10/10/17 13:14 Last Admin: 04/13/17 13:27 Dose: 50 mg Cyclosporine (Sandimmune) 100 mg PO BID [facility] Stop: 10/10/17 13:14 Last Admin: 04/15/17 08:28 Dose: 100 mg Cyclosporine (Sandimmune) 50 mg PO BID [facility] Stop: 10/10/17 13:14 Last Admin: 04/15/17 08:27 Dose: 50 mg Dexamethasone (Decadron) 20 mg PO ONCE ONE Stop: 04/13/17 12:46 Last Admin: 04/13/17 13:26 Dose: 20 mg Dexamethasone (Decadron) 20 mg PO MOWEFR@09 [facility] Stop: 10/11/17 08:59 Last Admin: 04/14/17 10:10 Dose: 20 mg Diphenhydramine HCl (Benadryl) 25 mg PO ONCE ONE Stop: 04/13/17 12:36 Last Admin: 04/13/17 16:10 Dose: Not Given Diphenhydramine HCl (Benadryl) 25 mg PO ONCE ONE Stop: 04/13/17 15:31 Last Admin: 04/13/17 16:04 Dose: 25 mg Diphenhydramine HCl (Benadryl) 50 mg PO Q6HRS PRN PRN Reason: Itching Stop: 10/11/17 12:46 Last Admin: 04/14/17 23:32 Dose: 50 mg Erythromycin (Erythromycin 0.5%) 1 marck RTEYE HS [facility] Stop: 05/13/17 20:59 Last Admin: 04/14/17 20:32 Dose: Not Given Piperacillin/Tazobactam/Dextrose (Zosyn (Premix)) 100 mls @ 200 mls/hr IV Q6 [facility] Stop: 05/13/17 05:59 Last Admin: 04/15/17 11:34 Dose: 100 mls Sodium Chloride (Ns) 1,000 mls @ 100 mls/hr IV CONT [facility] Stop: 10/10/17 07:59 Last Admin: 04/14/17 10:10 Dose: 1,000 mls Sodium Chloride (Ns) 1,000 mls @ 3,000 mls/hr IV ONCE ONE Stop: 04/15/17 14:44 Last Admin: 04/15/17 14:31 Dose: 1,000 mls Levothyroxine Sodium (Synthroid) 50 mcg PO DAILY06 [facility] Stop: 10/10/17 13:14 Last Admin: 04/15/17 05:48 Dose: 50 mcg Magnesium Oxide (Magnesium Oxide) 400 mg PO HS [facility] Stop: 10/10/17 20:59 Last Admin: 04/14/17 20:30 Dose: 400 mg Polyethylene Glycol (Miralax) 17 gm PO DAILY [facility] Stop: 10/10/17 14:44 Last Admin: 04/15/17 08:25 Dose: 17 gm Departure - Departure Disposition: [facility] Acute Clinical Impression: Hemophagocytic lymphohistiocytosis Fever Qualifiers: Fever type: unspecified Qualified Code(s): R50.9 - Fever, unspecified Condition: Fair
[2017-04-13] MEDS: PIPERACILLIN/TAZO 4.5 GM/DEX 100 ML IV SCH ×4 (06:00→19:59)
[2017-04-13] MEDS ORDERED: ONDANSETRON DISINTEGRATING 4 MG TAB PO PRN (07:30)
[2017-04-13] MEDS ORDERED: ONDANSETRON 4 MG/2 ML VIAL IVP PRN (07:30)
[2017-04-13 07:38] LABS: COLOR PALE YELLOW; LEUKOCYTE ESTERASE,URINE NEGATIVE (NEGATIVE); NITRITE,URINE NEGATIVE (NEGATIVE)
[2017-04-13 07:52] LABS: RBC,URINE NONE SEEN /hpf (0-3); WBC,URINE NONE SEEN /hpf (0-3)
--- NOTE | 2017-04-13 07:52 | PDGENHP ---
History and Physical - Chief Complaint fever - History of Present Illness Patient is a 56/F with hemophagocytic lymphohistiocytosis (HLH), complicated by intracranial hemorrhage (12/2016), currently receiving cyclophosphamide, etoposide and dexamethasone therapy who presents to the ED with complaint of fever. Patient reports having a fever on 04/06, 04/07, which she had attributed to her disease process; T-max on those days was not greater than 101 F. She then underwent her scheduled chemotherapy on 04/10 without complication. Today at about 5:30 p.m., patient began to feel warm, by 8:30 p.m. she had a temperature of 101 F and by 11:00 p.m. her temperature reached 103 F. Prior to this evening, she had never experienced a fever of that grade associated with her HLA, which concerned her and her , so they came to the ED for further evaluation. She denies any recent headaches, dizziness, odynophagia, oral ulcers, chest pain, cough, congestion, abdominal pain, nausea, vomiting, diarrhea or dysuria. She also denies any new rash, denies any sick contacts or recent travel. She only complains of chronic constipation, last BM was on 04.09. On arrival to the ED, patient afebrile (37.2), slightly tachycardic and hypotensive (hr 103, BP 95/63), saturating well on room air. Labs initially revealed Hb of 4.5, which was ultimately determined to be a lab error. Repeat labs revealed leukopenia (wbc1.54, hb 7.6, plts 54), normal BMP, negative lactic acid. UA was normal and CXR did not show any obvious infiltrate. She was cultured, given IV fluid hydration and admitted for further evaluation. History Information - Allergies/Home Medication List Allergies/Adverse Reactions: Sulfa (Sulfonamide Antibiotics) Allergy (Mild, Verified 04/13/17 00:23) Hives CT IV CONTRAST Allergy (Uncoded 02/06/17 14:54) Home Medications: Etoposide [Vepesid] 240 mg IV TH 01/10/17 [Last Taken 01/16/17] Dexamethasone [Decadron 4 MG (*)] 16 mg PO DAILY 01/16/17 [Last Taken 01/16/17] Acyclovir 400 mg PO BID 01/27/17 [Last Taken Unknown] CYCLOSPORINE 04/13/17 [Last Taken Unknown] I have personally reviewed and updated: family history, medical history, social history, surgical history - Past Medical History Additional medical history: HLH diagnosed in September of 2016 initiated on the [employer]-16 regimen, currently taking etoposide, cyclophosphamide and dexamethasone. Intracranial hemorrhage 12/2016. Hypothyroidism - Surgical History Reports: no pertinent surgical hx - Family History Additional family history: Mother with breast cancer - Social History Smoking Status: Never smoked Alcohol Use: None Drug Use: None Additional social history: Normally independent in her ADLs Review of Systems ROS: 10pt was reviewed & negative except for what was stated in HPI & below Physical Exam Physical Exam: Gen: chronically ill appearing, NAD HEENT: NCAT, mmm, no obvious oral ulcers, no oral thrush Neck; supple CV: RRR, no murmurs Resp: CTA b/l, no rhonchi or wheezing Abd: +BS, soft, nondistended, nontender MSK: no LE edema, DP pulses 2+; R upper extremity PICC, nonerythematous Neuro: AO x3, answers questions/follows commands appropriately; no focal deficits Temp Pulse Resp BP Pulse Ox 37.2 C 103 H 16 95/63 L 95 04/13/17 00:19 04/13/17 00:19 04/13/17 00:19 04/13/17 00:19 04/13/17 00:19 Lab Data & Imaging Review 04/13/17 01:50 04/13/17 01:50 Urine Color PALE YELLOW 04/13/17 02:05 Urine Appearance CLEAR 04/13/17 02:05 Urine pH 7.0 (5.0-7.5) 04/13/17 02:05 Ur Specific [place] 1.003 (1.002-1.030) 04/13/17 02:05 Urine Protein NEGATIVE (NEGATIVE) 04/13/17 02:05 Urine Ketones NEGATIVE (NEGATIVE) 04/13/17 02:05 Urine Blood NEGATIVE (NEGATIVE) 04/13/17 02:05 Urine Nitrate NEGATIVE (NEGATIVE) 04/13/17 02:05 Urine Bilirubin NEGATIVE (NEGATIVE) 04/13/17 02:05 Urine Urobilinogen NEGATIVE EU (0.2-1.0) 04/13/17 02:05 Ur Leukocyte Esterase NEGATIVE (NEGATIVE) 04/13/17 02:05 Urine RBC Not Reported 04/13/17 02:05 Urine WBC Not Reported 04/13/17 02:05 Ur Epithelial Cells Not Reported 04/13/17 02:05 Urine Glucose NEGATIVE (NEGATIVE) 04/13/17 02:05 CBC: 1.58 / 7.6 / 54 BMP: 130 / 4.2 / 104 / 24 / 18 / 0.6 < 84 Lactic acid: 1.2 UA: negative LE, neg nitrites, no wbc or rbcs Visualized and Interpreted Chest x-ray results: Yes Chest X-Ray results: no infiltrate Assessment & Plan Assessment: Patient is a 56/F with HLH on chemotherapy, previously complicated by intracranial hemorrhage (resolving) who presents to the ED with fever to 103F at home. ED evaluation does not reveal obvious source of infection, however, given her immunocompromised state and near-neutropenia, she was cultured and initiated on broad spectrum antibiotics. Plan: # fever Afebrile by time of arrival to the ED, after Tylenol administration at home. Given her leukopenia, tachycardia, she does meet SIRS criteria, however, source of infection has not yet been identified. LFTs are unremarkable, UA and CXR clear. She does have a PICC that was placed in 12/2016, site appears clean, nontender. Fever may be noninfectious and related to her disease process. Will check flu swab, follow up blood cultures, monitor fever curve and wbc count and continue empiric zosyn 4.5 gm q6h. Consider ID consult. # pancytopenia May be related to her chemotherapy or progression of her HLH. Initial ED labs showing Hb of 4.5 were in error, repeat shows stable H/H, platelets and wbc just slightly below her previous levels. No indication for transfusion acutely. Will continue to monitor. # HLH Follows with Dr. Rutherford, last received half-dose chemotherapy on 04/10. # h/o ICH Stable, no new neurologic symptoms or deficits. Is scheduled for routine surveillance MRI brain on 04/15. # hypothyroidism Check TSH and resume home sythroid. # dispo: admit to inpatient service for likely > 2 [place] stay # gen: Regular diet DVT ppx: SCDs only Full code
[2017-04-13 08:09] LABS: ANION GAP 2 mEq/L (8-16); CALCIUM 8.1 mg/dL (8.5-10.4); CARBON DIOXIDE 24 mEq/l (22-31); CHLORIDE 104 mEq/L (97-110); CREATININE 0.6 mg/dL (0.6-1.0); GLOMERULAR FILTRATION RATE > 60; GLUCOSE 84 mg/dL (70-100); POTASSIUM 4.2 mEq/L (3.5-5.2); SODIUM 130 mEq/L (134-144)
[2017-04-13] MEDS ORDERED: ACETAMINOPHEN 325 MG TAB PO PRN (08:16)
[2017-04-13] MEDS ORDERED: NS 1,000 ML IV SCH (08:30)
[2017-04-13] MEDS: ACETAMINOPHEN 325 MG TAB PO PRN (08:44)
[2017-04-13 08:48] LABS: ADD DIFF? YES; ADD MORPH? YES; ADD SCAN? YES; ATYPICAL LYMPHOCYTE FLAG 0 (0-99); FRAGMENT RBC FLAG 20 (0-99); HEMATOCRIT 19.8 % (38.0-47.0); LEFT SHIFT FLG 90 (0-99); LIPEMIA HEMOLYSIS FLAG 80 (0-99); MEAN CELL HEMOGLOBIN CONCENTR. 33.3 g/dL (32.4-36.7); MEAN CELL VOLUME 102.1 fL (81.5-99.8); MEAN PLATELET VOLUME 13.1 fL (8.7-11.7); PLATELET CLUMPS FLAG 0 (0-99); PLATELET COUNT 54 10^3/uL (150-400); RED BLOOD CELL COUNT 1.94 10^6/uL (4.18-5.33)
[2017-04-13 09:05] LABS: ALANINE AMINOTRANSFERASE 28 IU/L (9-52); ALBUMIN 2.7 g/dL (3.5-5.0); ALKALINE PHOSPHATASE 37 IU/L (38-126); ANION GAP 7 mEq/L (8-16); ASPARTATE AMINOTRANSFERASE 22 IU/L (14-46); CALCIUM 7.9 mg/dL (8.5-10.4); CARBON DIOXIDE 24 mEq/l (22-31); CHLORIDE 102 mEq/L (97-110); CREATININE 0.7 mg/dL (0.6-1.0); GLOMERULAR FILTRATION RATE > 60; GLUCOSE 82 mg/dL (70-100); POTASSIUM 4.1 mEq/L (3.5-5.2); SODIUM 133 mEq/L (134-144); TOTAL PROTEIN 4.6 g/dL (6.3-8.2)
[2017-04-13 09:31] LABS: HEMOGLOBIN 6.6 g/dL (12.6-16.3); RED CELL DISTRIBUTION WIDTH 22.8 % (11.5-15.2)
[2017-04-13 10:57] LABS: ALANINE AMINOTRANSFERASE 29 IU/L (9-52); ALBUMIN 2.6 g/dL (3.5-5.0); ALKALINE PHOSPHATASE 34 IU/L (38-126); ANION GAP 5 mEq/L (8-16); ASPARTATE AMINOTRANSFERASE 24 IU/L (14-46); CALCIUM 8.1 mg/dL (8.5-10.4); CARBON DIOXIDE 25 mEq/l (22-31); CHLORIDE 104 mEq/L (97-110); CREATININE 0.6 mg/dL (0.6-1.0); GLOMERULAR FILTRATION RATE > 60; GLUCOSE 82 mg/dL (70-100); POTASSIUM 4.1 mEq/L (3.5-5.2); SODIUM 134 mEq/L (134-144); TOTAL PROTEIN 4.5 g/dL (6.3-8.2)
[2017-04-13 10:59] LABS: ELLIPTOCYTES 1+; MACROCYTES 2+; POLYCHROMASIA 1+
[2017-04-13 11:00] LABS: PLATELET ESTIMATE DECREASED (ADEQ); SPHEROCYTES 1+; TOXIC GRANULATION PRESENT
[2017-04-13 11:12] LABS: ATYPICAL LYMPHOCYTE FLAG 0 (0-99); FRAGMENT RBC FLAG 90 (0-99); HEMATOCRIT 22.8 % (38.0-47.0); HEMOGLOBIN 7.6 g/dL (12.6-16.3); LIPEMIA HEMOLYSIS FLAG 80 (0-99); MEAN CELL HEMOGLOBIN 34.1 pg (27.9-34.1); MEAN CELL HEMOGLOBIN CONCENTR. 33.3 g/dL (32.4-36.7); MEAN CELL VOLUME 102.2 fL (81.5-99.8); MEAN PLATELET VOLUME 10.8 fL (8.7-11.7); PLATELET CLUMPS FLAG 10 (0-99); RED BLOOD CELL COUNT 2.23 10^6/uL (4.18-5.33)
[2017-04-13 11:13] LABS: ADD DIFF? YES; ADD MORPH? NO; ADD SCAN? NO; LEFT SHIFT FLG 110 (0-99); PLATELET COUNT 48 10^3/uL (150-400); RED CELL DISTRIBUTION WIDTH 22.6 % (11.5-15.2)
[2017-04-13 11:17] LABS: MACROCYTES 1+; MICROCYTES 1+; PLATELET ESTIMATE DECREASED (ADEQ); POLYCHROMASIA 1+; TOXIC GRANULATION PRESENT
--- NOTE | 2017-04-13 12:24 | SOAPPROG ---
SOAP Progress Note Assessment/Plan: Assessment: 1.) Neutropenic fever to 103.3 at home without localizing sx. of infection, but with profoundly low ANC, pt. on empiric broad spectrum initial Antibiotic coverage, with intent to monitor Tmax over the next 24-48 hours. Pt. has almost daily HLH fevers to 101, but not to 103, to differentiate last night's fever from her disease findings, thus justifying hospitalization. 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 Work up confirmed HLH which was treated with HLH-94 protocol achieving remission on Etoposide BIW and Dexamethasone. Pt's disease marker, CD25 went down to normal but relapsed after steroid taper over 9 weeks. MRI showed ICH with relapse- 01/10. She developed R facial cranial nerve palsy. Tx with IT MTX. Current Tx plan is [facility] transplant at [facility]. Last seen in office by Dr. Rutherford late last week. Her CD25 count reportedly is markedly elevated as of last week. She is currently on an increased dose of cyclosporine 150 mg po BID. Also on Dex. 20 mg TIW. Plan: 1.) Empiric broad spectrum antibiotics. 2.) Transfuse 2 U PRBCs 3.) Continue cyclosporine + Dex. 4.) Monitor fever pattern and sx. , awaiting Cx. results. 5.) Ongoing Tx planning for HLH in relapse. 04/13/17 12:26 Subjective: Feeling usual now, had shaking chill this AM after admission Objective: Middle aged WF who appears chronically ill, her is at the bedside She has a baseline R facial droop. VSS noted here: HEENT- pale, anicteric, w/R facial droop. Neck- supple, no LN enlargement Chest- clear CVS- RSR, no extra HS ABD- soft, NT, no mass or HSM, no ascites, non-distended EXT- warm, well perfused, no ecchymoses or petechiae Labs as noted here: ANC < 0.4 Vital Signs Temp Pulse Resp BP Pulse Ox 37.7 C 112 H 18 108/61 93 04/13/17 09:40 04/13/17 08:02 04/13/17 08:02 04/13/17 08:02 04/13/17 08:02 Laboratory Results 04/13/17 08:30 04/13/17 08:30 04/12/17 04/13/17 04/14/17 05:59 05:59 05:59 Output Total 600 Balance -600 ICD10 Worksheet Patient Problems: Problems Problem Status Onset Acquired pancytopenia Acute Hyponatremia Acute Intracranial hemorrhage Acute Liver enzyme elevation Acute Pancytopenia due to antineoplastic chemotherapy Acute Respiratory failure Acute Thrombocytopenia Acute
[2017-04-13] MEDS ORDERED: diphenhydrAMINE 25 MG CAP PO ONE ×2 (12:35→15:30)
[2017-04-13] MEDS ORDERED: ACETAMINOPHEN 325 MG TAB PO ONE ×2 (12:35→15:30)
[2017-04-13] MEDS ORDERED: DEXAMETHASONE 4 MG TAB PO ONE (12:45)
[2017-04-13] MEDS ORDERED: cycloSPORINE 25 MG CAP PO SCH (13:15)
[2017-04-13] MEDS ORDERED: cycloSPORINE 100 MG CAP PO SCH (13:15)
[2017-04-13] MEDS: LEVOTHYROXINE 50 MCG TAB PO SCH (13:26)
[2017-04-13] MEDS: ACYCLOVIR 400 MG TAB PO SCH ×2 (13:37→21:05)
--- NOTE | 2017-04-13 14:24 | HOSPPROG ---
Hospitalist Progress Note Assessment/Plan: 56 yo F w HLH here w febrile neutropenia febrile neutropenia: no source identified cxr clear no UTI belly soft agree w zosyn anemia: 2 units packed cells (leuk reduced) hyponatremia: mild, follow proph: thrombocytopenia noted, borderline for lmwh dispo: inpatient Subjective: case discussed w Dr Palacios. cxr- no infiltrate (interp by me) Objective: Vital Signs Temp Pulse Resp BP Pulse Ox 36.8 C 89 18 110/53 L 90 L 04/13/17 12:20 04/13/17 12:20 04/13/17 12:20 04/13/17 12:20 04/13/17 12:20 Laboratory Results 04/13/17 08:30 04/13/17 08:30 04/12/17 04/13/17 04/14/17 05:59 05:59 05:59 Output Total 1000 Balance -1000 - Physical Exam Constitutional: no apparent distress, appears nourished Eyes: PERRL, anicteric sclera Ears, Nose, Mouth, Throat: moist mucous membranes, hearing normal Cardiovascular: regular rate and rhythym, no murmur, rub, or gallop, systolic murmur Respiratory: no respiratory distress, no rales or rhonchi Gastrointestinal: normoactive bowel sounds, soft, non-tender abdomen Genitourinary: no bladder fullness, No gatica in urethra Skin: warm, normal color Musculoskeletal: full muscle strength Neurologic: AAOx3 ICD10 Worksheet Patient Problems: Problems Problem Status Onset Acquired pancytopenia Acute Hyponatremia Acute Intracranial hemorrhage Acute Liver enzyme elevation Acute Pancytopenia due to antineoplastic chemotherapy Acute Respiratory failure Acute Thrombocytopenia Acute
[2017-04-13] MEDS: NS 1,000 ML IV SCH (18:46)
[2017-04-13] MEDS: POLYETHYLENE GLYCOL 3350 17 GM PKT PO SCH (18:46)
[2017-04-13] MEDS: cycloSPORINE 25 MG CAP PO SCH (20:32)
[2017-04-13] MEDS: ERYTHROMYCIN 0.5% 1 GM OPHT.OINT RTEYE SCH (20:32)
[2017-04-13] MEDS: cycloSPORINE 100 MG CAP PO SCH (20:32)
[2017-04-13] MEDS: MAGNESIUM OXIDE 400 MG TAB PO SCH (21:05)
[2017-04-14] MEDS: PIPERACILLIN/TAZO 4.5 GM/DEX 100 ML IV SCH ×5 (00:35→23:32)
[2017-04-14] MEDS: LEVOTHYROXINE 50 MCG TAB PO SCH (05:40)
[2017-04-14 06:06] LABS: ABSOLUTE NRBC COUNT 0.05 10^3/uL (0-0.01); ADD DIFF? YES; ADD MORPH? YES; ATYPICAL LYMPHOCYTE FLAG 0 (0-99); FRAGMENT RBC FLAG 0 (0-99); HEMATOCRIT 28.6 % (38.0-47.0); HEMOGLOBIN 10.2 g/dL (12.6-16.3); LIPEMIA HEMOLYSIS FLAG 90 (0-99); MEAN CELL HEMOGLOBIN 32.5 pg (27.9-34.1); MEAN CELL HEMOGLOBIN CONCENTR. 35.7 g/dL (32.4-36.7); MEAN CELL VOLUME 91.1 fL (81.5-99.8); MEAN PLATELET VOLUME 10.1 fL (8.7-11.7); PLATELET CLUMPS FLAG 0 (0-99); RED BLOOD CELL COUNT 3.14 10^6/uL (4.18-5.33)
[2017-04-14 06:10] LABS: ANION GAP 4 mEq/L (8-16); CALCIUM 8.3 mg/dL (8.5-10.4); CARBON DIOXIDE 24 mEq/l (22-31); CHLORIDE 108 mEq/L (97-110); CREATININE 0.5 mg/dL (0.6-1.0); GLOMERULAR FILTRATION RATE > 60; GLUCOSE 117 mg/dL (70-100); POTASSIUM 4.5 mEq/L (3.5-5.2); SODIUM 136 mEq/L (134-144)
[2017-04-14 06:11] LABS: ALANINE AMINOTRANSFERASE 31 IU/L (9-52); ALBUMIN 2.6 g/dL (3.5-5.0); ALKALINE PHOSPHATASE 37 IU/L (38-126); ASPARTATE AMINOTRANSFERASE 23 IU/L (14-46); BILIRUBIN,TOTAL 1.5 mg/dL (0.1-1.4); MAGNESIUM 2.1 mg/dL (1.6-2.3); TOTAL PROTEIN 4.9 g/dL (6.3-8.2)
[2017-04-14 06:12] LABS: NRBC-AUTO% 3.6 % (0.0-0.2); PLATELET COUNT 39 10^3/uL (150-400); RED CELL DISTRIBUTION WIDTH 20.1 % (11.5-15.2)
[2017-04-14 06:13] LABS: ADD SCAN? NO; LEFT SHIFT FLG 200 (0-99)
[2017-04-14 06:53] LABS: PLATELET ESTIMATE DECREASED (ADEQ)
[2017-04-14 06:54] LABS: SPHEROCYTES 1+
[2017-04-14 06:55] LABS: POLYCHROMASIA 1+
[2017-04-14] MEDS ORDERED: Herbals/Supplements -Info Only PO SCH (09:00)
[2017-04-14] MEDS ORDERED: DEXAMETHASONE 4 MG TAB PO SCH (09:00)
[2017-04-14] MEDS: cycloSPORINE 100 MG CAP PO SCH ×2 (10:10→20:26)
[2017-04-14] MEDS: ACYCLOVIR 400 MG TAB PO SCH ×2 (10:10→20:30)
[2017-04-14] MEDS: NS 1,000 ML IV SCH (10:10)
[2017-04-14] MEDS: cycloSPORINE 25 MG CAP PO SCH ×2 (10:10→20:25)
--- NOTE | 2017-04-14 12:53 | SOAPPROG ---
SOAP Progress Note Assessment/Plan: Assessment: Assessment: 1.) Neutropenic fever to 103.3 at home without localizing sx. of infection, but with low ANC, pt. on empiric broad spectrum initial Antibiotic coverage, Pt. has almost daily HLH fevers to 101, but not to 103, to differentiate last night's fever from her disease findings, thus justifying hospitalization. 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 Work up confirmed HLH which was treated with HLH-94 protocol achieving remission on Etoposide BIW and Dexamethasone. Pt's disease marker, CD25 went down to normal but relapsed after steroid taper over 9 weeks. MRI showed ICH with relapse- 01/10. She developed R facial cranial nerve palsy. Tx with IT MTX. Current Tx plan is Allo transplant at [facility]. Last seen in office by Dr. Rutherford late last week. Her CD25 count reportedly is markedly elevated as of last week. She is currently on an increased dose of cyclosporine 150 mg po BID. Also on Dex. 20 mg TIW. Plan: 1.) Empiric broad spectrum antibiotics. 2.) will transfuse plts today given past history intracranial hemorrhage and count less than 50k 3.) Continue cyclosporine + Dex. 4.) Monitor fever pattern and sx. , awaiting Cx. results. 5.) Ongoing Tx planning for HLH in relapse. 04/14/17 12:50 Subjective: Feels ok Objective: Vital Signs Temp Pulse Resp BP Pulse Ox 97.7 F 71 18 120/72 95 04/14/17 11:18 04/14/17 11:18 04/14/17 11:18 04/14/17 11:18 04/14/17 11:18 Laboratory Results 04/14/17 05:45 04/14/17 05:45 04/13/17 04/14/17 04/15/17 05:59 05:59 05:59 Intake Total 3349 Output Total 2400 1400 Balance 949 -1400 Physical Exam - Physical Exam General Appearance: other (cushingoid) EENT: other (R facial droop) Respiratory: lungs clear, normal breath sounds Cardiac/Chest: regular rate, rhythm Abdomen: normal bowel sounds, non-tender ICD10 Worksheet Patient Problems: Problems Problem Status Onset Acquired pancytopenia Acute Hyponatremia Acute Intracranial hemorrhage Acute Liver enzyme elevation Acute Pancytopenia due to antineoplastic chemotherapy Acute Respiratory failure Acute Thrombocytopenia Acute
[2017-04-14] MEDS: ACETAMINOPHEN 325 MG TAB PO PRN ×2 (13:36→20:11)
--- NOTE | 2017-04-14 14:19 | HOSPPROG ---
Hospitalist Progress Note Assessment/Plan: 56 yo F w HLH here w febrile neutropenia febrile neutropenia: no source identified cxr clear no UTI belly soft agree w zosyn anemia: 2 units packed cells (leuk reduced) good hct bump from transfusion hyponatremia: mild, follow proph: thrombocytopenia noted, borderline for lmwh dispo: inpatient Subjective: afebrile. feels well. case d/w dr brown Objective: Vital Signs Temp Pulse Resp BP Pulse Ox 36.1 C 71 18 120/72 95 04/14/17 13:15 04/14/17 11:18 04/14/17 11:18 04/14/17 11:18 04/14/17 11:18 Laboratory Results 04/14/17 05:45 04/14/17 05:45 04/13/17 04/14/17 04/15/17 05:59 05:59 05:59 Intake Total 3349 Output Total 2400 2300 Balance 949 -2300 - Physical Exam Constitutional: no apparent distress, appears nourished Eyes: PERRL, anicteric sclera Ears, Nose, Mouth, Throat: moist mucous membranes, hearing normal Cardiovascular: regular rate and rhythym, no murmur, rub, or gallop Respiratory: no respiratory distress, no rales or rhonchi, clear to auscultation Gastrointestinal: normoactive bowel sounds, soft, non-tender abdomen, No guarding, No rebound Genitourinary: no bladder fullness, No gatica in urethra Skin: warm, normal color Musculoskeletal: full muscle strength, no muscle tenderness Neurologic: AAOx3 ICD10 Worksheet Patient Problems: Problems Problem Status Onset Acquired pancytopenia Acute Hyponatremia Acute Intracranial hemorrhage Acute Liver enzyme elevation Acute Pancytopenia due to antineoplastic chemotherapy Acute Respiratory failure Acute Thrombocytopenia Acute
[2017-04-14] MEDS ORDERED: GADOBUTROL 10 ML VIAL IVP ONE (16:24)
[2017-04-14] MEDS: POLYETHYLENE GLYCOL 3350 17 GM PKT PO SCH (17:29)
[2017-04-14] MEDS: diphenhydrAMINE 50 MG CAP PO PRN ×2 (17:29→23:32)
[2017-04-14] MEDS: MAGNESIUM OXIDE 400 MG TAB PO SCH (20:30)
[2017-04-14] MEDS: ERYTHROMYCIN 0.5% 1 GM OPHT.OINT RTEYE SCH (20:32)
[2017-04-15] MEDS ORDERED: hydrOXYzine HCL 25 MG TAB PO PRN (03:17)
[2017-04-15] MEDS: LEVOTHYROXINE 50 MCG TAB PO SCH (05:48)
[2017-04-15] MEDS: PIPERACILLIN/TAZO 4.5 GM/DEX 100 ML IV SCH ×2 (05:49→11:34)
[2017-04-15 06:02] LABS: ABSOLUTE NRBC COUNT 0.03 10^3/uL (0-0.01); ADD DIFF? YES; ATYPICAL LYMPHOCYTE FLAG 0 (0-99); FRAGMENT RBC FLAG 0 (0-99); HEMATOCRIT 26.6 % (38.0-47.0); HEMOGLOBIN 9.4 g/dL (12.6-16.3); LIPEMIA HEMOLYSIS FLAG 90 (0-99); MEAN CELL HEMOGLOBIN 32.5 pg (27.9-34.1); MEAN CELL HEMOGLOBIN CONCENTR. 35.3 g/dL (32.4-36.7); MEAN PLATELET VOLUME 11.1 fL (8.7-11.7); PLATELET CLUMPS FLAG 0 (0-99); PLATELET COUNT 113 10^3/uL (150-400); RED BLOOD CELL COUNT 2.89 10^6/uL (4.18-5.33)
[2017-04-15 06:16] LABS: ALANINE AMINOTRANSFERASE 32 IU/L (9-52); ALBUMIN 2.8 g/dL (3.5-5.0); ALKALINE PHOSPHATASE 38 IU/L (38-126); ANION GAP 7 mEq/L (8-16); ASPARTATE AMINOTRANSFERASE 21 IU/L (14-46); BILIRUBIN,TOTAL 0.7 mg/dL (0.1-1.4); CALCIUM 8.9 mg/dL (8.5-10.4); CARBON DIOXIDE 25 mEq/l (22-31); CHLORIDE 108 mEq/L (97-110); CREATININE 0.6 mg/dL (0.6-1.0); GLOMERULAR FILTRATION RATE > 60; GLUCOSE 98 mg/dL (70-100); MAGNESIUM 2.1 mg/dL (1.6-2.3); POTASSIUM 4.1 mEq/L (3.5-5.2); SODIUM 140 mEq/L (134-144); TOTAL PROTEIN 4.9 g/dL (6.3-8.2)
[2017-04-15 06:19] LABS: ADD MORPH? NO; ADD SCAN? NO; LEFT SHIFT FLG 140 (0-99); NRBC-AUTO% 1.5 % (0.0-0.2); RED CELL DISTRIBUTION WIDTH 20.7 % (11.5-15.2)
[2017-04-15 07:03] LABS: PLATELET ESTIMATE DECREASED (ADEQ)
[2017-04-15 07:04] LABS: MACROCYTES 1+; MICROCYTES 1+
[2017-04-15 07:05] LABS: SCHISTOCYTES 1+
[2017-04-15] MEDS: POLYETHYLENE GLYCOL 3350 17 GM PKT PO SCH (08:25)
[2017-04-15] MEDS: ACYCLOVIR 400 MG TAB PO SCH (08:25)
[2017-04-15] MEDS: cycloSPORINE 25 MG CAP PO SCH (08:27)
[2017-04-15] MEDS: cycloSPORINE 100 MG CAP PO SCH (08:28)
--- NOTE | 2017-04-15 11:10 | SOAPPROG ---
SOAP Progress Note Assessment/Plan: Assessment: Assessment: 1.) Neutropenic fever to 103.3 at home without localizing sx. of infection, but with low ANC, pt. on empiric broad spectrum initial Antibiotic coverage, Pt. has almost daily HLH fevers to 101, but not to 103, to differentiate last night's fever from her disease findings, thus justifying hospitalization. 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 Work up confirmed HLH which was treated with HLH-94 protocol achieving remission on Etoposide BIW and Dexamethasone. Pt's disease marker, CD25 went down to normal but relapsed after steroid taper over 9 weeks. MRI showed ICH with relapse- 01/10. She developed R facial cranial nerve palsy. Tx with IT MTX. MRI yesterday shows improvement in hemorrhagic lesions and nothing new Current Tx plan is Allo transplant at [facility]. Last seen in office by Dr. Rutherford late last week. Her CD25 count reportedly is markedly elevated as of last week. She is currently on an increased dose of cyclosporine 150 mg po BID, trough level is therapeutic at 239. Also on Dex. 20 mg TIW. Plan: Home today, d/c antibiotics, continue cyclosporine at current dose, follow up [facility] on . 04/14/17 12:50 04/15/17 11:06 Subjective: Feels ok Objective: Vital Signs Temp Pulse Resp BP Pulse Ox 97.2 F 55 L 16 110/64 97 04/15/17 08:25 04/15/17 08:25 04/15/17 08:25 04/15/17 08:25 04/15/17 08:25 Laboratory Results 04/15/17 05:45 04/15/17 05:45 04/14/17 04/15/17 04/16/17 05:59 05:59 05:59 Intake Total 3590 1864 Output Total 3216 7877 1200 Balance 459 -9868 -1200 ICD10 Worksheet Patient Problems: Problems Problem Status Onset Acquired pancytopenia Acute Hyponatremia Acute Intracranial hemorrhage Acute Liver enzyme elevation Acute Pancytopenia due to antineoplastic chemotherapy Acute Respiratory failure Acute Thrombocytopenia Acute
[2017-04-15] MEDS ORDERED: NS 1,000 ML IV ONE (14:25)
--- NOTE | 2017-04-15 14:35 | HOSPPROG ---
Hospitalist Progress Note Assessment/Plan: 56 yo F w HLH here w febrile neutropenia febrile neutropenia: no source identified cxr clear no UTI belly soft agree w zosyn hypotension: mild and not associated w tachycardia no sx give 1 L and follow may still be reasonable to dc today if resolves w IVF and no fever, etc anemia: 2 units packed cells (leuk reduced) good hct bump from transfusion hyponatremia: mild, follow proph: thrombocytopenia noted, borderline for lmwh dispo: i Subjective: CASE d/w dr brown. lowish bp's (88/50) this pm. denies f/c/cough/ urgency/frequency/dysuria/diarrhea Objective: Vital Signs Temp Pulse Resp BP Pulse Ox 36.3 C 78 16 88/50 L 99 04/15/17 12:00 04/15/17 12:00 04/15/17 12:00 04/15/17 14:21 04/15/17 12:00 Laboratory Results 04/15/17 05:45 04/15/17 05:45 04/14/17 04/15/17 04/16/17 05:59 05:59 05:59 Intake Total 3349 2557 Output Total 2400 4500 2300 Balance 949 -1943 -2300 - Physical Exam Constitutional: no apparent distress, appears nourished Eyes: PERRL, anicteric sclera Ears, Nose, Mouth, Throat: moist mucous membranes, hearing normal Cardiovascular: regular rate and rhythym, no murmur, rub, or gallop, No systolic murmur Respiratory: no respiratory distress, no rales or rhonchi, inspiratory crackles Gastrointestinal: normoactive bowel sounds, soft, non-tender abdomen, No guarding, No rebound Genitourinary: no bladder fullness, no bladder tenderness, No gatica in urethra Skin: warm, normal color Musculoskeletal: full muscle strength, no muscle tenderness Neurologic: AAOx3 Psychiatric: interacting appropriately, not anxious Lymph, Heme, Immunologic: no cervical LAD ICD10 Worksheet Patient Problems: Problems Problem Status Onset Hyponatremia Acute Liver enzyme elevation Acute Respiratory failure Acute Acquired pancytopenia Acute Pancytopenia due to antineoplastic chemotherapy Acute Thrombocytopenia Acute Intracranial hemorrhage Acute
[2017-04-15 15:43] VITALS: PULSE 72; RESP 14; TEMP 98.1; O2SAT 93
[2017-04-15 17:16] VITALS: BP 110/64
--- NOTE | 2017-04-15 21:07 | GDS ---
[f rep st] DISCHARGE SUMMARY DISCHARGE DIAGNOSES: 1. Hemophagocytic lymphohistiocytosis. 2. Fever. 3. History of intracranial hemorrhage. 4. Neutropenia, now resolved. HISTORY: Please see admission history and physical by Dr. Lindsey Leon. The patient presented with a higher than average fevers and other general malaise. She had a chest x-ray showing no evid ence of pneumonia. She had UA showing no evidence of urinary tract infection. She had a soft abdom inal exam. No rashes on her skin. No sore throat. She received a couple days of Zosyn for coverag e of febrile neutropenia. Her counts resolved with admission of cyclosporine and steroids. She had a brain MRI showing continued decreased size in the 4th punctate hemorrhagic lesions and underlying white matter disease, moderate in severity. She is followed by Oncology while here. She is discha rged home today. On the afternoon of discharge, she had a modestly low blood pressures at 88/50; her normal blood pre ssure is about 110/60. She was not tachycardic and there were no localizing symptoms. She was bolu sed with a liter of fluids and kept in the hospital and additional couple hours. Now, her vital sig ns are normal and she is discharged home. We did discuss the warning signs to come back to the hosp ital. She and her have been dealing with this for a while. I informed patient to have an a ppropriate sense of when to return to the hospital. /[id number]/MODL
== END 2017-04-15 18:25 | disposition home or self-care (01) | DRG 809 ==
LOC: F1N 03:25
PROVIDERS: ADMIT Internal Medicine; ATTEND Internal Medicine
PROC: 30233N1 Transfusion of Nonautologous Red Blood Cells into Peripheral Vein, Percutaneous Approach (ICD-10-PCS; principal; 2017-04-13)
DX: D70.9 Neutropenia, unspecified (principal); D76.1 Hemophagocytic lymphohistiocytosis; E87.1 Hypo-osmolality and hyponatremia
CPT/HCPCS: 80158-90; A9585; J2543; J7502; P9037; P9040

== ENCOUNTER → 2017-05-09 | Outpatient (CLI) | payer OTHER ==
[2017-05-09 15:53] VITALS: BP 113/74; PULSE 97; RESP 16; TEMP 98.2; O2SAT 96
== END ==
LOC: EDSTATUS 07:30 → F1NOP 15:11 → FOBOP 15:11
PROVIDERS: ATTEND Internal Medicine Hematology & Oncology
DX: D75.9 Disease of blood and blood-forming organs, unspecified (principal); D61.818 Other pancytopenia
CPT/HCPCS: J1200; P9040

== ENCOUNTER 2017-06-20 10:08 | Outpatient (CLI) | payer OTHER ==
[2017-06-20] MEDS ORDERED: diphenhydrAMINE 25 MG CAP PO ONE (13:45)
== END 2017-06-20 16:10 | disposition home or self-care (01) ==
LOC: FOBOP 10:08
PROVIDERS: ATTEND Internal Medicine Hematology & Oncology
DX: D50-D89 Diseases of the blood and blood-forming organs and certain disorders involving the immune mechanism (principal); D61.818 Other pancytopenia
CPT/HCPCS: 36430; P9016; P9037; P9040; J1642

== ENCOUNTER 2017-06-25 16:15 | Outpatient (CLI) | payer OTHER ==
[2017-06-25] MEDS ORDERED: NS 1,000 ML IV ONE (17:00)
[2017-06-25] MEDS ORDERED: diphenhydrAMINE 25 MG CAP PO ONE (19:15)
== END 2017-06-25 19:55 | disposition home or self-care (01) ==
LOC: FOBOP 16:15
PROVIDERS: ATTEND Internal Medicine Hematology & Oncology
PROC: 30233R1 Transfusion of Nonautologous Platelets into Peripheral Vein, Percutaneous Approach (ICD-10-PCS; principal; 2017-06-25)
DX: D75.9 Disease of blood and blood-forming organs, unspecified (principal); D61.818 Other pancytopenia
CPT/HCPCS: J1200; P9037

== ENCOUNTER 2017-06-27 11:16 | Outpatient (CLI) | payer OTHER ==
[2017-06-27] MEDS ORDERED: diphenhydrAMINE 25 MG CAP PO ONE (12:00)
== END 2017-06-27 18:11 | disposition home or self-care (01) ==
LOC: FOBOP 11:16
PROVIDERS: ATTEND Internal Medicine Hematology & Oncology
PROC: 30233N1 Transfusion of Nonautologous Red Blood Cells into Peripheral Vein, Percutaneous Approach (ICD-10-PCS; principal; 2017-06-27)
DX: D75.9 Disease of blood and blood-forming organs, unspecified (principal); D61.818 Other pancytopenia
CPT/HCPCS: 36430; P9016; P9040; Q9988

== ENCOUNTER 2017-06-28 10:54 | Outpatient (CLI) | payer OTHER ==
[2017-06-28] MEDS ORDERED: ACETAMINOPHEN 325 MG TAB PO ONE ×2 (11:45→14:00)
[2017-06-28] MEDS ORDERED: diphenhydrAMINE 25 MG CAP PO ONE ×2 (11:45→12:15)
[2017-06-28] MEDS ORDERED: LORazepam 2 MG/ML INJ IVP ONE (15:45)
[2017-06-28 18:23] VITALS: PULSE 84; RESP 18
[2017-06-28 18:26] VITALS: BP 121/62; TEMP 99.1; O2SAT 97
== END 2017-06-28 18:00 | disposition home or self-care (01) ==
LOC: FOBOP 10:54
PROVIDERS: ATTEND Internal Medicine Hematology & Oncology
PROC: 30233R1 Transfusion of Nonautologous Platelets into Peripheral Vein, Percutaneous Approach (ICD-10-PCS; principal; 2017-06-28)
DX: D75.9 Disease of blood and blood-forming organs, unspecified (principal); D61.818 Other pancytopenia
CPT/HCPCS: J2060

== ENCOUNTER 2017-07-01 11:35 | Outpatient (CLI) | payer OTHER ==
[2017-07-01] MEDS ORDERED: diphenhydrAMINE 25 MG CAP PO ONE ×2 (12:08→12:15)
[2017-07-01] MEDS ORDERED: ACETAMINOPHEN 325 MG TAB PO ONE (12:15)
[2017-07-01] MEDS ORDERED: NS 1,000 ML IV ONE (12:30)
== END 2017-07-01 15:42 | disposition home or self-care (01) ==
LOC: FOBOP 11:35
PROVIDERS: ATTEND Internal Medicine Hematology & Oncology
PROC: 30233N1 Transfusion of Nonautologous Red Blood Cells into Peripheral Vein, Percutaneous Approach (ICD-10-PCS; principal; 2017-07-01)
DX: D76.1 Hemophagocytic lymphohistiocytosis (principal); Z91.041 Radiographic dye allergy status; Z88.2 Allergy status to sulfonamides
CPT/HCPCS: 36430; P9037

== ENCOUNTER 2017-07-03 10:03 | Inpatient (IN) | payer OTHER ==
--- NOTE | 2017-07-03 10:30 | EDPHY ---
H & P Stated Complaint: Altered mental status Source: Patient Exam Limitations: No limitations - Personal History Current Tetanus/Diphtheria Vaccine: Yes Current Tetanus Diphtheria and Acellular Pertussis (TDAP): Yes - Medical/Surgical History Hx Asthma: No Hx Chronic Respiratory Disease: No Hx Diabetes: No Hx Cardiac Disease: No Hx Renal Disease: No Hx Cirrhosis: No Hx Alcoholism: No Hx HIV/AIDS: No Hx Splenectomy or Spleen Trauma: No Other PMH: PMHx: acquired pancytopenia, hemophagocytic lymphohistiocytosis, hyponatremia, liver enzyme elevation, pancytopenia due to antineoplastic chemotherapy - Social History Smoking Status: Never smoked Time Seen by Provider: 07/03/17 10:25 HPI/ROS: CHIEF COMPLAINT: Altered mental status HISTORY OF PRESENT ILLNESS: The patient is brought to the history with altered mental status for the past day. The patient has a history of HLH and is followed by [facility]. 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 The patient has been receiving frequent platelet transfusions. The patient reportedly is developed symptoms of confusion and paranoia over the past day. The patient has not had a history of any cough, congestion, new acute complaints of pain, fall or trauma. REVIEW OF SYSTEMS: A comprehensive 10 point review of systems is otherwise negative aside from elements mentioned in the history of present illness. (Emery Norris) - Physical Exam Exam: General Appearance: Female, appears fatigued, no acute distress Eyes: Scleral icterus, conjunctival edema noted in right eye ENT, Mouth: Dry mucous membranes Respiratory: There are no retractions, lungs are clear to auscultation Cardiovascular: Regular rate and rhythm Gastrointestinal: Abdomen is soft and nontender, no masses, bowel sounds normal Neurological: Alert and oriented x4, 5/5 strength noted all 4 extremities, right facial droop noted Skin: Mild jaundice Musculoskeletal: Neck is supple nontender Extremities: symmetrical, full range of motion Psychiatric: Patient is oriented X 3, there is no agitation (Emery Norris) Constitutional: Initial Vital Signs Temperature (C) 37.2 C 07/03/17 10:21 Heart Rate 113 H 07/03/17 10:21 Respiratory Rate 16 07/03/17 10:21 Blood Pressure 133/92 H 07/03/17 10:21 O2 Sat (%) 95 07/03/17 10:21 O2 Delivery Mode Room Air Allergies/Adverse Reactions: Sulfa (Sulfonamide Antibiotics) Allergy (Mild, Verified 07/03/17 18:18) Hives CT IV CONTRAST Allergy (Uncoded 07/03/17 18:18) Hives Home Medications: Medication Instructions Recorded Acyclovir [Zovirax 400 mg (*)] 400 mg PO BID 07/03/17 Dexamethasone [Decadron 4 MG (*)] 20 mg PO MOWEFR@07/03/17 Levothyroxine [Synthroid 50 mcg 50 mcg PO DAILY06 07/03/17 (*)] Multivitamins [Multivitamin (*)] 1 each PO DAILY 07/03/17 Nystatin Susp [Mycostatin Oral 5 ml PO DAILY PRN 07/03/17 Liquid] Posaconazole [Noxafil] 300 mg PO DAILY 07/03/17 Sulfamethox/Tmp 800/160 mg 1 tab PO SUSA 07/03/17 [Bactrim Ds] cycloSPORINE, MODIFIED [Neoral 100 100 mg PO BID 07/03/17 MG (*)] levOFLOXACIN [levAQUIN (*)] 500 mg PO DAILY 07/03/17 Medical Decision Making - Diagnostics Imaging Results: Imaging Impressions Head CT 07/03/17 10:07 Impression: 1. No acute intracranial findings. 2. Significant decrease in white matter hypodensities associated with previously noted enhancing lesions from hemophagocytic lymphohistiocytosis. Findings discussed with Emery Norris 07/03/2017 at 1131 hours. Lumbar Puncture 07/03/17 15:12 Impression: 1. Successful diagnostic lumbar puncture under fluoroscopic guidance. 2. Cerebrospinal fluid was clear. 3. No immediate complications. ED Course/Re-evaluation: The patient presents to the ED with altered mental status. Her workup consisted of a CT scan of the head which demonstrated no material change. She has chronic leukopenia. She is noted to be afebrile and thrombocytopenic. The patient's urinalysis was noted to have mild pyuria. The patient did have an unremarkable lumbar puncture performed 2 weeks ago and anticipation of a possible bone marrow transplant. I had lengthy discussion with the patient and her regarding treatment goals. I also consulted with Dr. Barksdale the patient's primary oncologist who recommends considering repeat lumbar puncture. The patient will be admitted to the hospital in the setting of ongoing altered mental status and possibility of opportunistic infection from her thrombocytopenia. (Emery Norris) 3:00 p.m.-this patient was signed over to me with altered mental status. Labs reviewed. Urinalysis reveals pyuria. Urine culture sent. She and her agree to lumbar puncture. Lumbar puncture by fluoroscopy ordered. The hospitalist service was consulted for admission. 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, meningitis, opportunistic infection (Emery Norris) - Data Points Laboratory Results: Laboratory Results 07/03/17 10:40 07/03/17 10:40 07/03/17 07/03/17 07/03/17 13:00 10:40 10:40 WBC RBC Hgb Hct MCV MCH MCHC RDW Plt Count MPV Neut % (Auto) Lymph % (Auto) [place] % (Auto) Eos % (Auto) Baso % (Auto) Nucleat RBC Rel Count Absolute Neuts (auto) Absolute Lymphs (auto) Absolute Monos (auto) Absolute Eos (auto) Absolute Basos (auto) Absolute Nucleated RBC Immature Gran % Seg Neutrophils % Band Neutrophils % Lymphocytes % Monocytes % Immature Gran # Absolute Seg Neuts Absolute Band Neuts Absolute Lymphocytes Absolute Monocytes Nucleated RBCs Platelet Estimate Polychromasia Basophilic Stippling Smear Review By Sodium 131 mEq/L L mEq/L (134-144) Potassium 4.1 mEq/L mEq/L (3.5-5.2) Chloride 101 mEq/L mEq/L (97-110) Carbon Dioxide 20 mEq/l L mEq/l (22-31) Anion Gap 10 mEq/L mEq/L (8-16) BUN 31 mg/dL H mg/dL (7-23) Creatinine 0.7 mg/dL mg/dL (0.6-1.0) Estimated GFR > 60 Glucose 161 mg/dL H mg/dL (70-100) Calcium 8.1 mg/dL L mg/dL (8.5-10.4) Total Bilirubin 2.2 mg/dL H mg/dL (0.1-1.4) Conjugated Bilirubin 1.3 mg/dL H mg/dL (0.0-0.5) Unconjugated Bilirubin 0.9 mg/dL mg/dL (0.0-1.1) AST 29 IU/L IU/L (14-46) ALT 62 IU/L H IU/L (9-52) Alkaline Phosphatase 130 IU/L H IU/L (38-126) Total Protein 4.9 g/dL L g/dL (6.3-8.2) Albumin 2.4 g/dL L g/dL (3.5-5.0) Procalcitonin 0.48 ng/mL H ng/mL (0.02-0.10) Urine Color YELLOW Urine Appearance HAZY Urine pH 7.0 (5.0-7.5) Ur Specific [place] 1.015 (1.002-1.030) Urine Protein 2+ H (NEGATIVE) Urine Ketones NEGATIVE (NEGATIVE) Urine Blood 1+ H (NEGATIVE) Urine Nitrate NEGATIVE (NEGATIVE) Urine Bilirubin NEGATIVE (NEGATIVE) Urine Urobilinogen NEGATIVE EU EU (0.2-1.0) Ur Leukocyte Esterase NEGATIVE (NEGATIVE) Urine RBC 15-25 /hpf H /hpf (0-3) Urine WBC 3-5 /hpf H /hpf (0-3) Ur Epithelial Cells NONE SEEN /lpf /lpf (NONE-1+) Urine Mucus TRACE /lpf /lpf (NONE-1+) Urine Glucose 2+ H (NEGATIVE) 07/03/17 10:40 WBC 0.35 10^3/uL L* 10^3/uL (3.80-9.50) RBC 2.69 10^6/uL L 10^6/uL (4.18-5.33) Hgb 8.5 g/dL L g/dL (12.6-16.3) Hct 25.0 % L % (38.0-47.0) MCV 92.9 fL fL (81.5-99.8) MCH 31.6 pg pg (27.9-34.1) MCHC 34.0 g/dL g/dL (32.4-36.7) RDW 17.4 % H % (11.5-15.2) Plt Count 61 10^3/uL L 10^3/uL (150-400) MPV 13.1 fL H fL (8.7-11.7) Neut % (Auto) Not Reported Lymph % (Auto) Not Reported [place] % (Auto) Not Reported Eos % (Auto) Not Reported Baso % (Auto) Not Reported Nucleat RBC Rel Count 14.3 % H % (0.0-0.2) Absolute Neuts (auto) Not Reported Absolute Lymphs (auto) Not Reported Absolute Monos (auto) Not Reported Absolute Eos (auto) Not Reported Absolute Basos (auto) Not Reported Absolute Nucleated RBC 0.05 10^3/uL H 10^3/uL (0-0.01) Immature Gran % Not Reported Seg Neutrophils % 62 % % Band Neutrophils % 12 % % Lymphocytes % 5 % % Monocytes % 21 % % Immature Gran # Not Reported Absolute Seg Neuts 0.22 10^/uL L 10^/uL (1.70-6.50) Absolute Band Neuts 0.04 10^3/uL 10^3/uL (0.00-0.70) Absolute Lymphocytes 0.02 10^3/uL L 10^3/uL (1.00-3.00) Absolute Monocytes 0.07 10^3/uL L 10^3/uL (0.30-0.80) Nucleated RBCs 8 /100 WBC H /100 WBC (0-0) Platelet Estimate DECREASED L (ADEQ) Polychromasia 1+ H Basophilic Stippling 1+ H Smear Review By Shiva MENDEZ MD Sodium Potassium Chloride Carbon Dioxide Anion Gap BUN Creatinine Estimated GFR Glucose Calcium Total Bilirubin Conjugated Bilirubin Unconjugated Bilirubin AST ALT Alkaline Phosphatase Total Protein Albumin Procalcitonin Urine Color Urine Appearance Urine pH Ur Specific [place] Urine Protein Urine Ketones Urine Blood Urine Nitrate Urine Bilirubin Urine Urobilinogen Ur Leukocyte Esterase Urine RBC Urine WBC Ur Epithelial Cells Urine Mucus Urine Glucose Medications Given: Potassium Chloride 20 meq/ (Sodium Chloride) 1,000 mls @ 50 mls/hr IV CONT KERRIE Stop: 12/30/17 19:29 Last Admin: 07/03/17 21:14 Dose: 1,000 mls Discontinued Medications Sodium Chloride (Ns) 500 mls @ 0 mls/hr IV ONCE ONE PRN Reason: Wide Open Stop: 07/03/17 13:00 Last Admin: 07/03/17 13:26 Dose: 500 mls Departure - Departure Disposition: [facility] Acute Clinical Impression: Altered mental status, Hemophagocytic lymphohistiocytosis, Thrombocytopenia Condition: Fair
[2017-07-03 10:52] LABS: ABSOLUTE NRBC COUNT 0.05 10^3/uL (0-0.01); ADD DIFF? YES; ATYPICAL LYMPHOCYTE FLAG 60 (0-99); FRAGMENT RBC FLAG 20 (0-99); HEMOGLOBIN 8.5 g/dL (12.6-16.3); LIPEMIA HEMOLYSIS FLAG 90 (0-99); MEAN CELL HEMOGLOBIN 31.6 pg (27.9-34.1); MEAN CELL VOLUME 92.9 fL (81.5-99.8); MEAN PLATELET VOLUME 13.1 fL (8.7-11.7); PLATELET CLUMPS FLAG 10 (0-99); PLATELET COUNT 61 10^3/uL (150-400); RED BLOOD CELL COUNT 2.69 10^6/uL (4.18-5.33); RED CELL DISTRIBUTION WIDTH 17.4 % (11.5-15.2)
[2017-07-03 10:54] LABS: ADD MORPH? NO; LEFT SHIFT FLG 200 (0-99); NRBC-AUTO% 14.3 % (0.0-0.2)
[2017-07-03 11:19] LABS: ANION GAP 10 mEq/L (8-16); CALCIUM 8.1 mg/dL (8.5-10.4); CARBON DIOXIDE 20 mEq/l (22-31); CHLORIDE 101 mEq/L (97-110); CREATININE 0.7 mg/dL (0.6-1.0); GLOMERULAR FILTRATION RATE > 60; GLUCOSE 161 mg/dL (70-100); POTASSIUM 4.1 mEq/L (3.5-5.2); SODIUM 131 mEq/L (134-144)
[2017-07-03 12:28] LABS: PLATELET ESTIMATE DECREASED (ADEQ); POLYCHROMASIA 1+
[2017-07-03 12:31] LABS: ADD SCAN? YES
[2017-07-03] MEDS ORDERED: NS 500 ML IV ONE (12:59)
[2017-07-03 13:13] LABS: COLOR YELLOW; LEUKOCYTE ESTERASE,URINE NEGATIVE (NEGATIVE); NITRITE,URINE NEGATIVE (NEGATIVE)
[2017-07-03 13:17] LABS: MUCUS TRACE /lpf (NONE-1+); RBC,URINE 15-25 /hpf (0-3)
[2017-07-03 13:35] LABS: SCAN POSITIVE
[2017-07-03 15:42] LABS: INR 1.37 (0.83-1.16); PROTIME(PATIENT) 16.9 SEC (12.0-15.0)
[2017-07-03 15:43] LABS: APTT 33.8 SEC (23.0-38.0)
[2017-07-03] MEDS ORDERED: LIDOCAINE 1% 300 MG/30 ML SDV ONE (16:04)
--- NOTE | 2017-07-03 16:44 | GHP ---
[f rep st] HISTORY AND PHYSICAL DATE OF ADMISSION: 07/03/2017 CHIEF COMPLAINT: Altered mental status. HISTORY OF PRESENT ILLNESS: This is a 56-year-old female with a history of hemophagocytic lymphohistiocytosis (HLH). She is followed by Dr. Barksdale at [facility]. Is undergoing Campath treatment in order to prepare for stem cell transplant. Since the middle of May, she has been having fevers. She has required multiple platelet transfusions, last of which was July 01. She has also required multiple blood transfusions, last of which was last Friday. She was brought into the hospital today by her due to increased confusion and trouble communicating. Her notes that she has been more lethargic and is having a hard time finding words. She has not been eating or drinking much. He has noticed some jaundice and discoloration of her eye. PAST MEDICAL HISTORY: 1. HLH diagnosed in September 2016. 2. Intracranial hemorrhage. 3. Hypothyroidism. HOME MEDICATIONS: Reviewed. Refer to [facility] for details. ALLERGIES: Sulfa and CT IV contrast. SOCIAL HISTORY: She is and lives her . She denies any alcohol, tobacco, or illicit drug use. FAMILY HISTORY: Reviewed and noncontributory. REVIEW OF SYSTEMS: Comprehensive 10-point review of systems was done and is negative, except for as mentioned in the HPI. PHYSICAL EXAM: VITAL SIGNS: Blood pressure 117/83, pulse 96, respiratory rate 22, O2 saturation 99% on room air. Temperature afebrile. GENERAL: No acute distress. HEAD: Normocephalic, atraumatic. EYES: There is scleral icterus. OD with Chemosis and mild proptosis MOUTH: Dry oral mucosa. NECK: Supple. No lymphadenopathy. CARDIOVASCULAR: S1, S2. No JVD. No lower extremity edema. PULMONARY: Lungs are clear. Diminished breath sounds in bilateral bases. No wheezes or rales. ABDOMEN: Soft, nontender, nondistended. No guarding or rebound tenderness. Normoactive bowel sounds. EXTREMITIES: No clubbing or cyanosis. NEURO: The patient is very somnolent and is not really following commands. Cranial nerves 2-12 appear to be intact. She is moving all extremities. SKIN: Clear. No rashes. DIAGNOSTICS: WBC is 0.35, hemoglobin 8.5, hematocrit 25, platelets 61, INR 1.37 , sodium 131, potassium 4.1, chloride 101, CO2 20, BUN 31, creatinine 0.7, glucose 161. UA: 1+ blood, negative leukocyte esterase, negative nitrite. Head CT done today, which I visualized and personally interpreted, showed no acute intracranial findings. There is decrease in white matter hypodensity associated with previously noted enhancing lesions from hemophagocytic lymphohistiocytosis. ASSESSMENT AND PLAN: This is a 56-year-old female with history of hemophagocytic lymphohistiocytosis HLH, presenting with: 1. Acute encephalopathy. 2. Hyperbilirubinemia and elevated alkaline phosphatase with some scleral icterus on exam. Rule out biliary obstruction. 3. Pancytopenia with absolute neutrophil count of 217, consistent with severe neutropenia. 4. Thrombocytopenia. 5. Stable normocytic anemia. 6. Right high a edema likely chemosis PLAN: 1. I discussed the case with Dr. Sam Hurd from Oncology, who will see the patient in consultation. He is concerned that her symptoms may be due to her HLH. Will plan for a lumbar puncture to be done later today to further evaluate for infection versus HLH in her [employer] DES[employer] requiring intrathecal chemotherapy. 2. Transfuse per protocol with both platelets and packed red blood cells. 3. Will repeat LFTs and obtain an abdominal ultrasound to evaluate for biliary obstruction. 4. The patient is high risk. Low molecular weight heparin for DVT prophylaxis is contraindicated in light of her thrombocytopenia. She requests to be DNR status. We will start antibiotics if she develops fever in the setting of her neutropenia. 5. will apply lubricating eyedrops to the right eye. Will consider consulting ophthalmology in the morning if not improving. /[id number]/MODL MTDD
[2017-07-03 17:38] LABS: CSF APPEARANCE CLEAR (CLEAR); CSF COLOR COLORLESS (COLORLESS)
[2017-07-03 17:39] LABS: WBC, CSF 0 /mm3 (0-5)
[2017-07-03 17:40] LABS: PROCALCITONIN 0.48 ng/mL (0.02-0.10)
[2017-07-03 17:43] LABS: PROTEIN, CSF 39 mg/dL (12-60)
[2017-07-03 18:31] LABS: ALBUMIN 2.4 g/dL (3.5-5.0); BILIRUBIN,TOTAL 2.2 mg/dL (0.1-1.4); BILIRUBIN-CONJUGATED 1.3 mg/dL (0.0-0.5); BILIRUBIN-UNCONJUGATED 0.9 mg/dL (0.0-1.1); TOTAL PROTEIN 4.9 g/dL (6.3-8.2)
[2017-07-03] MEDS ORDERED: POTASSIUM Cl (KCl) 20 MEQ in 1/2 NS 1,000 ML IV SCH (19:30)
--- NOTE | 2017-07-03 19:30 | GCON ---
[f rep st] CONSULTATION HEMATOLOGY CONSULTATION Primary camp tender is Dr. Rylan Barksdale. HISTORY OF PRESENT ILLNESS: Aranza is a 56-year-old woman diagnosed with hemophagocytic lymphohistiocytosis towards the end of 2015. She underwent treatment under the HLH-94 protocol, and an underlying diagnosis was not found. She initially went into remission but then developed a relapse. She was started back on the on the protocol, which includes etoposide and dexamethasone , and then she was on a trial of alemtuzumab. She had seen been seen by Dr. Veliz for possible bone marrow transplant, but she had decided not to undergo transplant and just wanted to continue palliative therapy. Last night her called me reporting that she has had a little bit different bizarre behavior, somewhat paranoid, but she was not aggressive, and there were no other focal neurological complaints. She denied headache and did not have a fever. We had a long discussion overnight, and he decided he wanted just to monitor her, and if she got worse, then he would bring her in the office or into the ER. This morning he brought her into the emergency room because the issues were ongoing, perhaps getting worse. A CT in the emergency room showed no evidence of a bleed. She was admitted to the hospital for evaluation and underwent a lumbar puncture. She is relatively nonverbal, although will answer some questions with a nod and will follow some commands. ALLERGIES: She has a reported allergy of sulfa, but she has been on Bactrim without difficulty. She also has a CT IV contrast allergy. MEDICATIONS: Home medications include levofloxacin, posaconazole, nystatin, multivitamin, levothyroxine, dexamethasone, cyclosporine 100 mg twice daily, Bactrim, and acyclovir. PAST MEDICAL HISTORY: Chronic illnesses include: 1. Hemophagocytic leukoencephalopathy as per HPI. 2. Previous history of intracranial hemorrhage. 3. Hypothyroidism. PAST SURGICAL HISTORY: Noncontributory. FAMILY HISTORY: Remarkable for mother with breast cancer. SOCIAL HISTORY: She is . Lives with her . Denies alcohol, tobacco, or illicit drug use. REVIEW OF SYSTEMS: Difficult to obtain. I did speak to her as stated in HPI. Otherwise, 10-point exam was unremarkable. PHYSICAL EXAMINATION: VITAL SIGNS: Temperature is 37.8, pulse is 97, blood pressure is 128/86. GENERAL: She is in no distress. Again somewhat nonverbal. HEENT: She has minimal sclerae anicteric, but on the right she has a little bit of proptosis and some edema in the sclera. Denies any tenderness. Oral mucosa is unremarkable. LUNGS: Clear anteriorly. CARDIAC: Regular. ABDOMEN: Soft. She will move all of her extremities when asked. LABORATORY DATA: Sodium 131, potassium 4.1. BUN and creatinine are 31 and 0.6. LFTs are still pending. White count is 350 (0.35). ANC is 220, which is stable. Hemoglobin is down a little bit to 8.5 g/dL. Platelet count is down to 61,000. Her last ferritin just a couple weeks ago was over 10,000. Her last bilirubin, which was today, is actually 2.2, and that is relatively stable. Her last LDH was normal, although it has been a while. Cultures are pending. CSF from today shows no white cells, glucose was 62, total protein is 39, was colorless. Culture and cytology are pending. IMAGING DATA: CT of her head today, I believe with oral contrast, showed no acute changes. There are significant decreased white matter hypodensities with previously noted enhancing lesions when compared to CT of the head in December and MRI in March. IMPRESSION: 1. Mental status change. 2. Hemophagocytic leukoencephalopathy. 3. Pancytopenia secondary to #2. RECOMMENDATIONS: I am not sure what is causing some of these changes. Typically, patients who have CSF involvement with HLH have high protein, low glucose, and some abnormal cells, which she does not seem to have at this time. The same would go if she has an infection. She does have some proptosis, and it is possible she is developing some other problems such as an atypical or opportunistic infection. So, I recommend we get an MRI to better characterize it. I had a long discussion with the , who is also going to speak with Dr. Barksdale tomorrow. Basically, he is wondering if she is just declining, and if they should just consider comfort measures as she has not wanted to be aggressive with the underlying HLH. I told him that we would look to see if there is anything that might be reversible such as an infection, but if we keep coming up with no clear answers except for just worsening HLH, then that might be a reasonable option. /[id number]/MODL MTDD
[2017-07-03] MEDS ORDERED: PETROLAT,WHT/MIN OIL/SOD CHL 3.5 GM OPHT.OINT EACHEYE PRN (20:14)
[2017-07-03] MEDS ORDERED: NYSTATIN SUSP 500000 UNIT/5 ML UDCUP PO PRN (20:15)
[2017-07-03] MEDS ORDERED: GADOBUTROL 10 ML VIAL IVP ONE (20:19)
[2017-07-03] MEDS: CYCLOSPORINE MODIFIED 100 MG PO SCH (23:50)
[2017-07-03] MEDS: ACYCLOVIR 400 MG TAB PO SCH (23:50)
[2017-07-04 04:22] LABS: ABSOLUTE NRBC COUNT 0.03 10^3/uL (0-0.01); ATYPICAL LYMPHOCYTE FLAG 0 (0-99); FRAGMENT RBC FLAG 0 (0-99); HEMATOCRIT 23.3 % (38.0-47.0); LIPEMIA HEMOLYSIS FLAG 90 (0-99); MEAN CELL HEMOGLOBIN CONCENTR. 34.3 g/dL (32.4-36.7); MEAN CELL VOLUME 93.2 fL (81.5-99.8); PLATELET CLUMPS FLAG 0 (0-99); RED CELL DISTRIBUTION WIDTH 17.2 % (11.5-15.2)
[2017-07-04] MEDS: LEVOTHYROXINE 50 MCG TAB PO SCH (04:23)
[2017-07-04] MEDS ORDERED: VANCOMYCIN HCL/NORMAL SALINE 250 ML IV ONE (04:27)
--- NOTE | 2017-07-04 04:32 | HOSPPROG ---
Hospitalist Progress Note Assessment/Plan: XC Note: Called regarding temp of 39.3, HR 102. Chart reviewed. Some concern for [employer] infection given encephalopathic presentation, though zero wbc's on CSF. She has an indwelling PICC of unknown duration. PCT 0.48 on admission. Will check lactate, repeat CBC and CMP pending. Elevated LFT's noted, though no e/o ductal dilatation on u/s. -BCx's drawn -Starting Meropenem and Vanco, 1 g now -MRI with/without contrast pending for am Objective: Vital Signs Temp Pulse Resp BP Pulse Ox 39.3 C H 102 H 20 137/90 H 94 07/04/17 03:43 07/04/17 03:43 07/04/17 03:43 07/04/17 03:43 07/04/17 03:43 Microbiology 07/03/17 16:59 Gram Stain - Final Cerebral Spinal Fluid 07/02/17 07/03/17 07/04/17 05:59 05:59 05:59 Intake Total 500 Balance 500 PT 16.9 SEC (12.0-15.0) H 07/03/17 Unknown INR 1.37 (0.83-1.16) H 07/03/17 Unknown ICD10 Worksheet Patient Problems: Problems Problem Status Onset Altered mental status Acute Hemophagocytic lymphohistiocytosis Acute Thrombocytopenia Acute Acquired pancytopenia Acute Fever Acute Hyponatremia Acute Intracranial hemorrhage Acute Liver enzyme elevation Acute Pancytopenia due to antineoplastic chemotherapy Acute Respiratory failure Acute
[2017-07-04 04:42] LABS: ALANINE AMINOTRANSFERASE 61 IU/L (9-52); ALBUMIN 2.3 g/dL (3.5-5.0); ALKALINE PHOSPHATASE 110 IU/L (38-126); ANION GAP 9 mEq/L (8-16); ASPARTATE AMINOTRANSFERASE 42 IU/L (14-46); CALCIUM 7.7 mg/dL (8.5-10.4); CARBON DIOXIDE 20 mEq/l (22-31); CHLORIDE 99 mEq/L (97-110); CREATININE 0.6 mg/dL (0.6-1.0); GLOMERULAR FILTRATION RATE > 60; GLUCOSE 89 mg/dL (70-100); LACTATE DEHYDROGENASE 925 IU/L (313-618); PLATELET COUNT 37 10^3/uL (150-400); POTASSIUM 4.2 mEq/L (3.5-5.2); SODIUM 128 mEq/L (134-144); TOTAL PROTEIN 4.4 g/dL (6.3-8.2)
[2017-07-04 04:43] LABS: LEFT SHIFT FLG 200 (0-99); NRBC-AUTO% 6.8 % (0.0-0.2)
[2017-07-04 04:48] LABS: ADD SCAN? NO
[2017-07-04 04:49] LABS: ADD MORPH? NO
[2017-07-04 04:52] LABS: % IMMATURE GRANULYOCYTES 9.1 % (0.0-1.1)
[2017-07-04 04:53] LABS: ABSOLUTE IMMATURE GRANULOCYTES 0.04 10^3/uL (0.00-0.10); ADD DIFF? NO
[2017-07-04 05:12] LABS: PLATELET ESTIMATE DECREASED (ADEQ)
[2017-07-04] MEDS: MEROPENEM 1 GM in NS 100 ML IV SCH ×3 (06:26→20:57)
[2017-07-04 07:06] LABS: FERRITIN - BCH > 10000.0 ng/mL (6.2-264.0)
[2017-07-04] MEDS: ACYCLOVIR 400 MG TAB PO SCH ×2 (10:15→20:52)
[2017-07-04] MEDS: CYCLOSPORINE MODIFIED 100 MG PO SCH ×2 (10:15→20:53)
[2017-07-04] MEDS: DEXAMETHASONE 4 MG TAB PO SCH (10:15)
[2017-07-04] MEDS: MULTIVITAMINS 1 EACH TAB PO SCH (10:16)
[2017-07-04] MEDS: POSACONAZOLE 100 MG TAB.DR PO SCH (10:16)
--- NOTE | 2017-07-04 11:05 | HOSPPROG ---
Hospitalist Progress Note Assessment/Plan: 56 yo female with Hemophagocytic lymphohistiocytosis admitted for Acute Encephalopathy. Developed Fever overnight and started on Vancomycin and Ertapenem. Hemodynamically stable. Mentation still impaired with slight improvement, can follow command, knows that she is in the hospital. MRI c/w 2 new enhancing lesions in the Cerebellum suspicious for progressive disease. Na has decreased. W/u thus far has not revealed infectious source. is reportedly waiting to speak to Oncology to have a discussion about possible Palliative care. #Fever, unknown origin. Infectious vs due to disease process. Elevated PC noted -For now continue with abx per above -She is also on home Levaquin and Bactrim -Will consider ID consult pending discussion regarding palliative care, will discuss with Onc -Oncology to determine need for Cyclosporin given possible infection -Await cultures. No resp sx's, Negative RUQ US, LP unremarkable, UA unremarkable , BC'x pending -Cont Acyclovir #Acute Encephalopathy, etiology is likely multifactorial, slight improvement today. #Hyponatremia, was on /2 NS overnight. Will change to NS. check urine studies #Hemophagocytic lymphohistiocytosis, on Dexamethasone #Pancytopenia #DVT proph: SCD's given pancytopenia. #dispo: keep inpatient. Await discussion regarding palliative care. Subjective: Per nurse, the pt's who just left the room is waiting discuss possible palliative care with her Oncologist. She is able to follow some commands. Objective: Vital Signs Temp Pulse Resp BP Pulse Ox 37.3 C 98 16 129/87 H 94 07/04/17 07:47 07/04/17 07:47 07/04/17 07:47 07/04/17 07:47 07/04/17 07:47 Microbiology 07/03/17 16:59 Gram Stain - Final Cerebral Spinal Fluid Laboratory Results 07/04/17 04:00 07/04/17 04:00 07/03/17 07/04/17 07/05/17 05:59 05:59 05:59 Intake Total 500 Balance 500 PT 16.9 SEC (12.0-15.0) H 07/03/17 Unknown INR 1.37 (0.83-1.16) H 07/03/17 Unknown - Time Spent With Patient Time Spent with Patient: greater than 35 minutes Time Spent with Patient: Greater than 35 minutes spent on this patients care, greater than 50% of time spent counseling, educating, and coordinating care regarding the above mentioned plan. - Physical Exam Constitutional: chronically ill appearing Eyes: PERRL Ears, Nose, Mouth, Throat: dry mucous membranes Cardiovascular: regular rate and rhythym, No bradycardia, No edema Respiratory: no respiratory distress, clear to auscultation Gastrointestinal: normoactive bowel sounds, soft, non-tender abdomen Skin: warm Psychiatric: encephalopathic ICD10 Worksheet Patient Problems: Problems Problem Status Onset Altered mental status Acute Hemophagocytic lymphohistiocytosis Acute Thrombocytopenia Acute Acquired pancytopenia Acute Fever Acute Hyponatremia Acute Intracranial hemorrhage Acute Liver enzyme elevation Acute Pancytopenia due to antineoplastic chemotherapy Acute Respiratory failure Acute
--- NOTE | 2017-07-04 11:27 | SOAPPROG ---
SOAP Progress Note Assessment/Plan: E&M for HLH * Hemophagocytic Lymphohistocytosis: Seems to be refractory to therapy and clinically declining. Her MRI is showing new lesions. She has r/o transplant as option. Dr. Barksdale recommended to the to consider moving to comfort care only and the is in agreement. This was recommended to the patient as well and she wants to think about it. She is agreeable to meeting with hospice today. * Febrile Neutropenia: currently on abx and cultures negative. Could be due to underlying HLH. Will continue for now. * Pancytopenia: no need for transfusion today. Subjective: Patient still cognitively present. spoke to Dr. Barksdale this morning and I have spoken to both. Objective: Vital Signs Temp Pulse Resp BP Pulse Ox 37.3 C 98 16 129/87 H 94 07/04/17 07:47 07/04/17 07:47 07/04/17 07:47 07/04/17 07:47 07/04/17 07:47 Microbiology 07/03/17 16:59 Gram Stain - Final Cerebral Spinal Fluid Laboratory Results 07/04/17 04:00 07/04/17 04:00 07/03/17 07/04/17 07/05/17 05:59 05:59 05:59 Intake Total 500 Balance 500 PT 16.9 SEC (12.0-15.0) H 07/03/17 Unknown INR 1.37 (0.83-1.16) H 07/03/17 Unknown MRI of the Brain(Without and With Contrast) Impression: Suspicious for progressive disease. Please see above. Dictated By: Marty Tucker MD Laboratory Tests 07/03/17 07/03/17 07/03/17 10:40 10:40 16:59 WBC 0.35 L* Hgb 8.5 L Plt Count 61 L Ferritin Total Bilirubin 2.2 H Lactate Dehydrogenase CSF Tube Number 4 CSF Appearance CLEAR CSF Color COLORLESS CSF Supernatant Not Reported CSF WBC 0 CSF RBC 2 H CSF Glucose 62 CSF Total Protein 39 07/04/17 07/04/17 04:00 04:00 WBC 0.44 L* Hgb 8.0 L Plt Count 37 L Ferritin > 89883.0 H Total Bilirubin 2.0 H Lactate Dehydrogenase 925 H CSF Tube Number CSF Appearance CSF Color CSF Supernatant CSF WBC CSF RBC CSF Glucose CSF Total Protein Physical Exam - Physical Exam General Appearance: other (somewhat non-verbal but responds to questions) Respiratory: lungs clear Cardiac/Chest: regular rate, rhythm Neuro/Psych: No motor weakness ICD10 Worksheet Patient Problems: Problems Problem Status Onset Altered mental status Acute Hemophagocytic lymphohistiocytosis Acute Thrombocytopenia Acute Acquired pancytopenia Acute Fever Acute Hyponatremia Acute Intracranial hemorrhage Acute Liver enzyme elevation Acute Pancytopenia due to antineoplastic chemotherapy Acute Respiratory failure Acute
[2017-07-04] MEDS: NS W/ 20 KCl/L 1,000 ML IV SCH (12:33)
[2017-07-04] MEDS: VANCOMYCIN HCL/NORMAL SALINE 250 ML IV SCH (16:54)
--- NOTE | 2017-07-04 18:10 | PDPCPN ---
Palliative Care Progress Note Assessment/Plan: Referring provider: Dr Hurd Reason for consult: Complex medical decision making Symptom control HPI: Aranza Garner (Kam) is a 56 yo female with PMH HLH admitted to the hospital with increasing confusion, speech problems and lethargy. Found to have worsening disease on MRI with progression of her HLH that seems refractory to therapy. She had been possibly planning a stem cell transplant for cure but per family had recently decided against doing this. Clinical status continues to decline with lethargy and acute encephalopathy. Palliative care consulted for complex medical decision making. Met with Rylan and their friend Edwin outside of the room. Rylan shared Anil's journey of her disease since September with lots of ups and downs in her treatment. She had been feeling really good after starting campath and had even gone to [place] to see a HLH specialist who recommended stem cell transplant as a cure. Per Rylan Anil had decided recently to not pursue this avenue and was preparing for her for the past few weeks. 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 Rylan spoke of the conversation with Dr Hurd this morning in which anil stated she wanted to continue with treatment. We discussed what this might mean to Anil that if she continues with treatment her value of quality of life may not improve despite continuing treatment. He is not sure exactly what she would want. We also talked about hospice care as an option to move to comfort only if stopping active medical interventions and allowing for a natural course of life. Then went and spoke with Anil including and friends in the room. Using yes/no questions we were able to speak with Anil about continuing treatment vs not. Explained that other option besides continuing treatment was hospice care which would mean only focusing on comfort and not continuing treatment. Asked if Anil wanted hospice now she nodded yes. Multiple confirming questions all along the same lines of wanting to focus only on comfort care now. Assessment: Physical: - Pain: denies pain - tylenol PRN - Dyspnea: poss with aspiration - oxygen as needed - opiates if needed for more severe discomfort of dyspnea roxanol 5mg pO Q2hr PRN - weakness - full nursing support Emotional/psychological: well supported by her family and quaker family Advanced Care Planning: Is patient decisional?: Yes Code Status: DNR POA: Rylan is MDPOA Plan: [facility] hospice coming to meet with Anil and family tomorrow at 10 am. Needs inpatient hospice due to continuing changing symptoms including fever, chills, not eating, and aspiration risk. Subjective: shakes head yes/no Objective: Social History: to Rylan. Has 4 daughters (21, 19, and twin 17) adopted from [place]. 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 Medication list reviewed ROS: unable to fully asses due to speech Functional assessment: PPS: 30% Functional status: dependent on ADLs, IADLs Vital Signs Temp Pulse Resp BP Pulse Ox 37.1 C 118 H 18 130/90 H 93 07/04/17 16:52 07/04/17 16:52 07/04/17 16:52 07/04/17 16:52 07/04/17 16:52 Microbiology 07/03/17 16:59 Gram Stain - Final Cerebral Spinal Fluid Laboratory Results 07/04/17 04:00 07/04/17 04:00 07/03/17 07/04/17 07/05/17 05:59 05:59 05:59 Intake Total 500 900 Balance 500 900 PT 16.9 SEC (12.0-15.0) H 07/03/17 Unknown INR 1.37 (0.83-1.16) H 07/03/17 Unknown Physical Exam - Physical Exam General Appearance: no apparent distress, other (eyes closed but able to respond to some questions) Respiratory: No respiratory distress, No accessory muscle use Skin: normal color, warm/dry Extremities: pedal edema Neuro/Psych: other (eyes closed but able to respond to some questions) ICD10 Worksheet Patient Problems: Problems Problem Status Onset Altered mental status Acute Hemophagocytic lymphohistiocytosis Acute Palliative care encounter Acute Thrombocytopenia Acute Acquired pancytopenia Acute Fever Acute Hyponatremia Acute Intracranial hemorrhage Acute Liver enzyme elevation Acute Pancytopenia due to antineoplastic chemotherapy Acute Respiratory failure Acute - ICD10 Problem Qualifiers (1) Palliative care encounter
[2017-07-05] MEDS: NS W/ 20 KCl/L 1,000 ML IV SCH (02:26)
[2017-07-05] MEDS: MEROPENEM 1 GM in NS 100 ML IV SCH ×3 (04:26→21:21)
[2017-07-05] MEDS: VANCOMYCIN HCL/NORMAL SALINE 250 ML IV SCH ×3 (04:26→22:51)
[2017-07-05 05:09] LABS: ABSOLUTE NRBC COUNT 0.07 10^3/uL (0-0.01); ATYPICAL LYMPHOCYTE FLAG 0 (0-99); HEMATOCRIT 23.7 % (38.0-47.0); MEAN CELL HEMOGLOBIN 31.6 pg (27.9-34.1); MEAN CELL HEMOGLOBIN CONCENTR. 33.8 g/dL (32.4-36.7); MEAN CELL VOLUME 93.7 fL (81.5-99.8); PLATELET CLUMPS FLAG 0 (0-99); RED BLOOD CELL COUNT 2.53 10^6/uL (4.18-5.33); RED CELL DISTRIBUTION WIDTH 17.1 % (11.5-15.2)
[2017-07-05 05:12] LABS: ADD MORPH? NO
[2017-07-05 05:13] LABS: ADD SCAN? NO; PLATELET COUNT 17 10^3/uL (150-400)
[2017-07-05 05:14] LABS: % IMMATURE GRANULYOCYTES 11.4 % (0.0-1.1); ABSOLUTE IMMATURE GRANULOCYTES 0.04 10^3/uL (0.00-0.10); ADD DIFF? NO
[2017-07-05 05:23] LABS: ALANINE AMINOTRANSFERASE 81 IU/L (9-52); ALKALINE PHOSPHATASE 108 IU/L (38-126); ANION GAP 6 mEq/L (8-16); ASPARTATE AMINOTRANSFERASE 79 IU/L (14-46); BILIRUBIN,TOTAL 1.9 mg/dL (0.1-1.4); CALCIUM 7.6 mg/dL (8.5-10.4); CARBON DIOXIDE 19 mEq/l (22-31); CHLORIDE 101 mEq/L (97-110); CREATININE 0.6 mg/dL (0.6-1.0); GLOMERULAR FILTRATION RATE > 60; GLUCOSE 74 mg/dL (70-100); LACTATE DEHYDROGENASE 1009 IU/L (313-618); POTASSIUM 4.2 mEq/L (3.5-5.2); SODIUM 126 mEq/L (134-144); TOTAL PROTEIN 4.3 g/dL (6.3-8.2)
[2017-07-05 05:38] LABS: PLATELET ESTIMATE DECREASED (ADEQ)
[2017-07-05 05:48] LABS: PROCALCITONIN 0.48 ng/mL (0.02-0.10)
[2017-07-05 06:03] LABS: FERRITIN - BCH > 10000.0 ng/mL (6.2-264.0)
[2017-07-05] MEDS: LEVOTHYROXINE 50 MCG TAB PO SCH ×2 (07:39→08:41)
[2017-07-05] MEDS: CYCLOSPORINE MODIFIED 100 MG PO SCH ×2 (10:02→21:21)
[2017-07-05] MEDS: POSACONAZOLE 100 MG TAB.DR PO SCH (10:02)
[2017-07-05] MEDS: SULFAMETHOX/TMP 800/160 MG 1 TAB PO SCH (10:02)
[2017-07-05] MEDS: ACYCLOVIR 400 MG TAB PO SCH ×2 (10:03→21:21)
[2017-07-05] MEDS: MULTIVITAMINS 1 EACH TAB PO SCH (10:03)
[2017-07-05] MEDS ORDERED: diphenhydrAMINE 25 MG CAP PO ONE (10:38)
[2017-07-05] MEDS ORDERED: ACETAMINOPHEN 325 MG TAB PO ONE (10:38)
--- NOTE | 2017-07-05 10:45 | SOAPPROG ---
SOAP Progress Note Assessment/Plan: Assessment: E&M for HLH * Hemophagocytic Lymphohistocytosis: The situation has changed today. She is awake, sitting up, and eating oatmeal. She met with [facility] today and she clearly states to me that she is NOT interested in Hospice/BSC at least at this time. We will therefore continue care with antibiotics/transfusion support. Will restart etoposide when counts recover a bit more. * Febrile Neutropenia: currently on abx and cultures negative. Could be due to underlying HLH. Will continue for now. * Pancytopenia: Needs plts today. * Plan: - txn plts - continue abx - etoposide/dex when possible Subjective: - sitting up and clearly states that she does not want to sign up for hospice at the moment. - She has noticed some painless bruising on her fingers. 07/05/17 10:40 Objective: Vital Signs Temp Pulse Resp BP Pulse Ox 38.7 C H 108 H 20 130/74 H 94 07/05/17 08:57 07/05/17 08:57 07/05/17 08:57 07/05/17 08:57 07/05/17 08:57 Microbiology 07/03/17 16:59 Gram Stain - Final Cerebral Spinal Fluid Laboratory Results 07/05/17 04:55 07/05/17 04:55 07/03/17 07/04/17 07/05/17 23:59 23:59 23:59 Intake Total 500 900 Balance 500 900 PT 16.9 SEC (12.0-15.0) H 07/03/17 Unknown INR 1.37 (0.83-1.16) H 07/03/17 Unknown Physical Exam - Physical Exam General Appearance: alert, mild distress Respiratory: lungs clear Cardiac/Chest: regular rate, rhythm Abdomen: normal bowel sounds Skin: other (bruising on extremities) Neuro/Psych: oriented x 3, other (I feel she is currently competent to make her own decisions.) ICD10 Worksheet Patient Problems: Problems Problem Status Onset Altered mental status Acute Hemophagocytic lymphohistiocytosis Acute Palliative care encounter Acute Thrombocytopenia Acute Acquired pancytopenia Acute Fever Acute Hyponatremia Acute Intracranial hemorrhage Acute Liver enzyme elevation Acute Pancytopenia due to antineoplastic chemotherapy Acute Respiratory failure Acute
--- NOTE | 2017-07-05 15:39 | HOSPPROG ---
Hospitalist Progress Note Assessment/Plan: * Hemophagocytic lymphohistiocytosis - stem cell transplant declined -refractory to treatment and clinically declining -transfuse platelets today -continue dexamethasone, cyclosporine * Acute encephalopathy - mental status improved today * Fever - on empiric Invanz + Vanco -suspect fever due to uncontrolled HLH -patient is neutropenic -consult ID * Cerebellar lesions - due to progressive HLH * Hyponatremia - suspect SIADH -check urine sodium -fluid restrict * Hanson's palsy * h/o intracranial hemorrhage Subjective: Woke up this am, hospice cancelled, patient now wants full care again Objective: Vital Signs Temp Pulse Resp BP Pulse Ox 36.4 C 118 H 20 116/54 L 92 07/05/17 11:46 07/05/17 11:46 07/05/17 11:46 07/05/17 11:46 07/05/17 11:46 Microbiology 07/03/17 Unknown Urine Culture - Final Urine,Clean Catch 07/03/17 16:59 Gram Stain - Final Cerebral Spinal Fluid Laboratory Results 07/05/17 04:55 07/05/17 04:55 07/04/17 07/05/17 07/06/17 05:59 05:59 05:59 Intake Total 500 900 Output Total 1 Balance 500 900 -1 PT 16.9 SEC (12.0-15.0) H 07/03/17 Unknown INR 1.37 (0.83-1.16) H 07/03/17 Unknown d/w Dr. Barksdale - hospice is appropriate, but patient woke up this am and stated she wanted to continue treatment CXR - negative - Physical Exam Constitutional: no apparent distress, appears nourished, not in pain Ears, Nose, Mouth, Throat: other (right facial droop, very swollen face) Cardiovascular: regular rate and rhythym, no murmur, rub, or gallop Respiratory: no respiratory distress, no rales or rhonchi, clear to auscultation Gastrointestinal: normoactive bowel sounds, soft, non-tender abdomen, no palpable masses Skin: no rashes or abrasions, no fluctuance, no induration Neurologic: AAOx3, sensation intact bilaterally Psychiatric: interacting appropriately, not anxious, not encephalopathic, thought process linear ICD10 Worksheet Patient Problems: Problems Problem Status Onset Altered mental status Acute Hemophagocytic lymphohistiocytosis Acute Palliative care encounter Acute Thrombocytopenia Acute Acquired pancytopenia Acute Fever Acute Hyponatremia Acute Intracranial hemorrhage Acute Liver enzyme elevation Acute Pancytopenia due to antineoplastic chemotherapy Acute Respiratory failure Acute
[2017-07-06] MEDS: LEVOTHYROXINE 50 MCG TAB PO SCH (04:58)
[2017-07-06] MEDS: MEROPENEM 1 GM in NS 100 ML IV SCH ×3 (04:58→22:11)
[2017-07-06 05:14] LABS: ABSOLUTE NRBC COUNT 0.03 10^3/uL (0-0.01); ADD MORPH? YES; ATYPICAL LYMPHOCYTE FLAG 0 (0-99); FRAGMENT RBC FLAG 20 (0-99); HEMATOCRIT 20.3 % (38.0-47.0); LIPEMIA HEMOLYSIS FLAG 80 (0-99); MEAN CELL HEMOGLOBIN 31.8 pg (27.9-34.1); MEAN CELL HEMOGLOBIN CONCENTR. 33.5 g/dL (32.4-36.7); MEAN CELL VOLUME 94.9 fL (81.5-99.8); MEAN PLATELET VOLUME 13.1 fL (8.7-11.7); PLATELET CLUMPS FLAG 20 (0-99); PLATELET COUNT 50 10^3/uL (150-400); RED BLOOD CELL COUNT 2.14 10^6/uL (4.18-5.33); RED CELL DISTRIBUTION WIDTH 16.8 % (11.5-15.2)
[2017-07-06 05:17] LABS: HEMOGLOBIN 6.8 g/dL (12.6-16.3); LEFT SHIFT FLG 170 (0-99); NRBC-AUTO% 8.8 % (0.0-0.2)
[2017-07-06 05:19] LABS: ADD SCAN? NO
[2017-07-06 05:20] LABS: ABSOLUTE IMMATURE GRANULOCYTES 0.04 10^3/uL (0.00-0.10)
[2017-07-06 05:21] LABS: % IMMATURE GRANULYOCYTES 11.8 % (0.0-1.1); ADD DIFF? NO
[2017-07-06 05:24] LABS: ALANINE AMINOTRANSFERASE 109 IU/L (9-52); ALBUMIN 1.8 g/dL (3.5-5.0); ALKALINE PHOSPHATASE 105 IU/L (38-126); ANION GAP 5 mEq/L (8-16); ASPARTATE AMINOTRANSFERASE 109 IU/L (14-46); CALCIUM 7.1 mg/dL (8.5-10.4); CARBON DIOXIDE 20 mEq/l (22-31); CHLORIDE 102 mEq/L (97-110); CREATININE 0.7 mg/dL (0.6-1.0); GLOMERULAR FILTRATION RATE > 60; GLUCOSE 94 mg/dL (70-100); LACTATE DEHYDROGENASE 1058 IU/L (313-618); POTASSIUM 3.7 mEq/L (3.5-5.2); SODIUM 127 mEq/L (134-144)
[2017-07-06 05:37] LABS: MACROCYTES 1+; MICROCYTES 1+; PLATELET ESTIMATE DECREASED (ADEQ)
[2017-07-06 07:46] LABS: FERRITIN - BCH > 10000.0 ng/mL (6.2-264.0)
[2017-07-06] MEDS: POSACONAZOLE 100 MG TAB.DR PO SCH (09:16)
[2017-07-06] MEDS: ACYCLOVIR 400 MG TAB PO SCH ×2 (09:17→22:11)
[2017-07-06] MEDS: MULTIVITAMINS 1 EACH TAB PO SCH (09:17)
[2017-07-06] MEDS: CYCLOSPORINE MODIFIED 100 MG PO SCH ×2 (09:18→22:11)
[2017-07-06] MEDS: SULFAMETHOX/TMP 800/160 MG 1 TAB PO SCH (09:26)
--- NOTE | 2017-07-06 10:46 | SOAPPROG ---
SOAP Progress Note Assessment/Plan: Assessment: E&M for HLH * Hemophagocytic Lymphohistocytosis: Currently, she is NOT interested in Hospice/BSC. We will therefore continue care with antibiotics/transfusion support. She is 23 days out from her last alemtuzumab therapy (last dose 2016). She refused potentially curative therapy with cord blood transplant. She still wants palliative treatment is feasible. Her lymphocytes are still low. Her low counts could be still from alemtuzumab vs. progression of underlying HLH (or both). I think by mid week we will need to make a decision about restarting etoposide/dex (HLH-94 protocol) empirically. If no response to that then I would consider further treatment futile. Discussed with patient and . * Febrile Neutropenia: currently on abx and cultures negative. Could be due to underlying HLH. Will continue for now. * Pancytopenia: Hgb is 6.8. Needs PRBC today Plan: - txn PRBC - continue abx - etoposide/dex - will need to make a decision in next 48-72 hours 40 min spent in discussion/at bedside/coordination of care. Subjective: Awake and alert. Depressed affect, but still desirous of palliative therapy Objective: Vital Signs Temp Pulse Resp BP Pulse Ox 39.0 C H 93 18 110/64 93 07/06/17 09:00 07/06/17 09:00 07/06/17 09:00 07/06/17 09:00 07/06/17 09:00 Microbiology 07/03/17 16:59 Gram Stain - Final Cerebral Spinal Fluid CSF Culture - Final 07/03/17 Unknown Urine Culture - Final Urine,Clean Catch Laboratory Results 07/06/17 04:45 07/06/17 04:45 07/04/17 07/05/17 07/06/17 23:59 23:59 23:59 Intake Total 900 350 640 Output Total 201 1 Balance 900 149 639 PT 16.9 SEC (12.0-15.0) H 07/03/17 Unknown INR 1.37 (0.83-1.16) H 07/03/17 Unknown Physical Exam - Physical Exam General Appearance: moderate distress EENT: other (R conjunctival edema and icterus > left) Respiratory: lungs clear (anterior and posterior), No crackles, No rales, No rhonchi Cardiac/Chest: regular rate, rhythm Abdomen: normal bowel sounds, distended Skin: jaundice (faint), other (multiple bruises on arms and legs) Neuro/Psych: oriented x 3, depressed affect ICD10 Worksheet Patient Problems: Problems Problem Status Onset Altered mental status Acute Hemophagocytic lymphohistiocytosis Acute Palliative care encounter Acute Thrombocytopenia Acute Acquired pancytopenia Acute Fever Acute Hyponatremia Acute Intracranial hemorrhage Acute Liver enzyme elevation Acute Pancytopenia due to antineoplastic chemotherapy Acute Respiratory failure Acute
[2017-07-06] MEDS ORDERED: ACETAMINOPHEN 650 MG SUPP PR ONE (10:49)
[2017-07-06] MEDS: VANCOMYCIN HCL/NORMAL SALINE 250 ML IV SCH (10:56)
[2017-07-06] MEDS ORDERED: ACETAMINOPHEN 325 MG TAB PO ONE (12:30)
--- NOTE | 2017-07-06 14:36 | HOSPPROG ---
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 Still stating clearly that she wants to continue treatment. Objective: Vital Signs Temp Pulse Resp BP Pulse Ox 39.4 C H 101 H 18 108/62 94 07/06/17 13:58 07/06/17 13:05 07/06/17 13:05 07/06/17 13:05 07/06/17 13:05 Microbiology 07/03/17 16:59 Gram Stain - Final Cerebral Spinal Fluid CSF Culture - Final 07/03/17 Unknown Urine Culture - Final Urine,Clean Catch Laboratory Results 07/06/17 04:45 07/06/17 04:45 07/05/17 07/06/17 07/07/17 05:59 05:59 05:59 Intake Total 900 990 260 Output Total 202 Balance 900 788 260 PT 16.9 SEC (12.0-15.0) H 07/03/17 Unknown INR 1.37 (0.83-1.16) H 07/03/17 Unknown - Physical Exam Constitutional: no apparent distress, appears nourished, not in pain Cardiovascular: regular rate and rhythym, no murmur, rub, or gallop Respiratory: no respiratory distress, no rales or rhonchi, clear to auscultation Gastrointestinal: normoactive bowel sounds, soft, non-tender abdomen, no palpable masses Skin: no rashes or abrasions, no fluctuance, no induration Neurologic: AAOx3, sensation intact bilaterally Psychiatric: interacting appropriately, not anxious, not encephalopathic, thought process linear ICD10 Worksheet Patient Problems: Problems Problem Status Onset Altered mental status Acute Hemophagocytic lymphohistiocytosis Acute Palliative care encounter Acute Thrombocytopenia Acute Acquired pancytopenia Acute Fever Acute Hyponatremia Acute Intracranial hemorrhage Acute Liver enzyme elevation Acute Pancytopenia due to antineoplastic chemotherapy Acute Respiratory failure Acute
--- NOTE | 2017-07-06 16:33 | GCON ---
[f rep st] CONSULTATION INFECTIOUS DISEASE CONSULTATION DATE OF CONSULTATION: 07/06/2017 REFERRING PHYSICIAN: Jessica Henning MD REASON FOR CONSULTATION: Management of IV antibiotics in the setting of neutropenic fever. HISTORY OF PRESENT ILLNESS: A 56-year-old woman with hemophagocytic lymphohistiocytosis, who presented to the emergency room on 07/03/2017 with altered mental status. The patient underwent a lumbar puncture at that time, which showed no evidence of meningitis, with 0 WBCs, and RBC of 2, a glucose of 62, and protein of 39. The patient was admitted to the hospital, given IV fluids, and started on broad-spectrum antibiotics including meropenem, vancomycin, and her prophylactic antibiotics were continued. The patient's mental status spontaneously improved while hospitalized. No focus of infection has been identified with negative blood cultures. Negative chest x-ray. Today, the patient has minimal complaints other than malaise. It is not clear whether she might have some baseline liquid stool but denies diarrhea. She denies urinary symptoms. She has chronic nasal congestion. No new sore throat or sinus pressure. She denies any rashes, joint swelling, pain or sick contacts. She has two 17 year olds who have been well. She has minimal outdoor exposure currently. PAST MEDICAL HISTORY: 1. HLH diagnosed in September of 2016. The patient has been seen by outside physician for possible transplant, which she has deferred. Clarification of cord blood transplantation. She has been receiving alemtuzumab therapy, last dose 06/13/2017. As a part of evaluation during initial diagnosis of HLH, the patient had extensive workup for FUO, which included positive history of EBV infection. Negative Q fever, Lyme disease, CMV, coccidiomycosis, blastomycosis brucella, and cryptococcal serologies. Also had negative AFB, and fungal cultures. 2. Recurrent tonsillitis as a child. 3. 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 4. Aseptic meningitis. PAST SURGICAL HISTORY: 1. Breast implants in 1988, which required repeat implantation in 2011. 2. Patriot teeth extraction. 3. History of leukopenia in 2010, and , which no specific diagnosis was identified. ALLERGIES: 1. CT IV contrast. 2. The patient previously stated allergy to sulfa, but has tolerated Bactrim. SOCIAL HISTORY: The patient is . She has 4 adopted children from [place]. No alcohol, tobacco, or illicit drugs. She has had minimal outdoor exposure, and no travel outside of the [place]. Please see my partner's - Dr. Hien Blackwell's - more detailed social history and consultation dated . FAMILY HISTORY: Positive for breast cancer in her mother. MEDICATIONS: 1. Meropenem 1 g IV q.8, started 07/04/2017. 2. Vancomycin 1 g IV q.12, started 07/05. 3. Acyclovir 400 mg twice daily. 4. Bactrim prophylaxis. 5. Posaconazole 300 mg daily. 6. Decadron 20 mg daily. 7. Levaquin 500 mg daily. REVIEW OF SYSTEMS: A complete 10-point review of systems was performed, and is negative except as mentioned in the HPI. PHYSICAL EXAM: VITAL SIGNS: Blood pressure 108/62, heart rate in the 90s to 103, temperature 39.4, respiratory rate is 18, saturation 94% on room air. GENERAL: This is a cushingoid woman lying in bed without respiratory distress. HEENT: She has pale conjunctivae with obvious right facial droop. Oral exam reveals dry mucous membranes, but no oral ulcerations or exudates. Her teeth were okay. NECK: Supple. No lymphadenopathy. CARDIOVASCULAR: Tachycardic. Regular rate with a 2/6 systolic murmur. CHEST: Clear to auscultation bilaterally. ABDOMEN: Soft. Bowel sounds are present. She had diffuse discomfort to palpation. : No suprapubic tenderness. No Scott. EXTREMITIES : She has some trace pretibial edema. Otherwise, no joint swelling. Good capillary refill with 2+ pulses. NEUROLOGIC: She has the right facial droop, but is moving with generalized weakness without other further deficit. Flat affect. SKIN: Full skin exam is performed, and no rashes are identified. RECTAL: Exam is deferred. LABORATORY DATA: White count 0.34, hematocrit 20, platelets of 50; 64% neutrophils, 23% monocytes, and no lymphocytes. AST 109, up from 79. ALT 109, up from 81. LDH has been in the low 1000s for a couple days. Creatinine 0.7. Blood cultures from admission dated 07/04/2017 are no growth today. Urine culture from 07/03 is negative. CSF culture 07/03/2017 is negative. ASSESSMENT AND PLAN: This is a 56-year-old woman who has hemophagocytic lymphohistiocytosis, who is currently receiving palliative care for her disease , who was admitted for febrile neutropenia without localizing symptoms of infection. Pertinent negatives include no pulmonary symptoms, normal O2 sat, and a negative chest x-ray, minimal abdominal symptoms, and negative blood cultures. The patient is at risk for a broad spectrum of pathogens with essentially no neutrophils or lymphocytes, including typical neutropenic fever etiologies, such as typhlitis fungal infections, as well as viral infections. The patient is CMV antibody negative, therefore doubt reactivation of CMV. Further doubt primary disease due to CMV without other localizing symptoms. Also could consider other respiratory viral pathogens, such as influenza B. Nonetheless, she has minimal upper respiratory symptoms. Finally, she has been on prophylaxis for Pneumocystis and Aspergillus, making both of these pathogens less likely. Past serologic analysis showed no evidence of past infection with endemic fungi. Certainly, fever etiology could also be drug fever, as well as due to her primary disease - hemophagocytic lymphohistiocytosis. 1. Neutropenic fever. 2. Elevated liver function tests. 3. Thrombocytopenia. 4. Altered mental status, now resolved. RECOMMENDATIONS: 1. Would send respiratory PCR despite minimal symptoms. 2. Would not evaluate for CMV at this time due to past negative serologic analysis. 3. With minimal outdoor exposure, doubt zoonotic etiology to her fever, such as West Nile. 4. Discontinue IV vancomycin with negative blood cx at 48hours. In addition, prophylactic levofloxacin not needed while patient on meropenem and was discontinued. 5. Sulfa removed from allergy list as patient is tolerating Bactrim ID will continue to follow on a daily basis. Antibiotic adjustments were reviewed with Dr. Henning, patient and . Thank you for this consultation. /[id number]/MODL MTDD
[2017-07-07] MEDS: ALTEPLASE 2 MG VIAL IVP PRN ×3 (00:06→12:26)
[2017-07-07 04:43] LABS: ABSOLUTE NRBC COUNT 0.05 10^3/uL (0-0.01); ATYPICAL LYMPHOCYTE FLAG 0 (0-99); FRAGMENT RBC FLAG 0 (0-99); HEMATOCRIT 26.5 % (38.0-47.0); HEMOGLOBIN 9.4 g/dL (12.6-16.3); LIPEMIA HEMOLYSIS FLAG 90 (0-99); MEAN CELL HEMOGLOBIN 31.6 pg (27.9-34.1); MEAN CELL HEMOGLOBIN CONCENTR. 35.5 g/dL (32.4-36.7); MEAN CELL VOLUME 89.2 fL (81.5-99.8); MEAN PLATELET VOLUME 13.6 fL (8.7-11.7); PLATELET CLUMPS FLAG 10 (0-99); RED BLOOD CELL COUNT 2.97 10^6/uL (4.18-5.33)
[2017-07-07 05:14] LABS: ALANINE AMINOTRANSFERASE 116 IU/L (9-52); ALBUMIN 1.8 g/dL (3.5-5.0); ALKALINE PHOSPHATASE 111 IU/L (38-126); ANION GAP 5 mEq/L (8-16); ASPARTATE AMINOTRANSFERASE 77 IU/L (14-46); BILIRUBIN,TOTAL 3.3 mg/dL (0.1-1.4); CARBON DIOXIDE 21 mEq/l (22-31); CHLORIDE 103 mEq/L (97-110); CREATININE 0.6 mg/dL (0.6-1.0); GLOMERULAR FILTRATION RATE > 60; GLUCOSE 105 mg/dL (70-100); POTASSIUM 3.3 mEq/L (3.5-5.2); SODIUM 129 mEq/L (134-144)
[2017-07-07 05:27] LABS: ADD MORPH? NO; LEFT SHIFT FLG 160 (0-99); NRBC-AUTO% 13.5 % (0.0-0.2); PLATELET COUNT 42 10^3/uL (150-400)
[2017-07-07 05:29] LABS: ADD SCAN? NO
[2017-07-07 05:31] LABS: BILIRUBIN-CONJUGATED 2.1 mg/dL (0.0-0.5); BILIRUBIN-UNCONJUGATED 1.2 mg/dL (0.0-1.1)
[2017-07-07 05:45] LABS: % IMMATURE GRANULYOCYTES 10.8 % (0.0-1.1)
[2017-07-07 05:46] LABS: ABSOLUTE IMMATURE GRANULOCYTES 0.04 10^3/uL (0.00-0.10); ADD DIFF? NO
[2017-07-07] MEDS: MEROPENEM 1 GM in NS 100 ML IV SCH ×3 (05:51→20:31)
[2017-07-07] MEDS: LEVOTHYROXINE 50 MCG TAB PO SCH (06:04)
[2017-07-07 06:13] LABS: PLATELET ESTIMATE DECREASED (ADEQ)
[2017-07-07] MEDS: DEXAMETHASONE 4 MG TAB PO SCH (10:04)
[2017-07-07] MEDS: CYCLOSPORINE MODIFIED 100 MG PO SCH ×2 (10:04→20:31)
[2017-07-07] MEDS: POSACONAZOLE 100 MG TAB.DR PO SCH (10:04)
[2017-07-07] MEDS: MULTIVITAMINS 1 EACH TAB PO SCH (10:05)
[2017-07-07] MEDS: ACYCLOVIR 400 MG TAB PO SCH ×2 (10:05→22:39)
--- NOTE | 2017-07-07 13:20 | PCMIDPN ---
Assessment/Plan: Assessment: HLH syndrome - continued fevers. No clear infectious source. Suspect this may be primary process. Will continue on current empiric regimen for neutropenic fever including meropenem, acyclovir, Bactrim and posaconazole. Blood micro as well as nasopharyngeal micro are negative. Plan: 1. HLH - likely causing continued fevers. Agree with hematology plans. Will continue to provide antimicrobial coverage empirically as detailed above. 2. Continue to follow fever curve. 3. follow her clinical course. 07/07/17 13:22 07/07/17 13:23 Subjective: Patient is sitting up in her hospital chair. She feels better today than she has in the past 2 days. Continues to have fevers. No localizing symptoms. Objective: Meropenem # 4 Bactrim # 3 Acyclovir # 5 Posaconazole # 4 Vital Signs Temp Pulse Resp BP Pulse Ox 38.2 C 93 20 126/70 H 94 07/07/17 11:08 07/07/17 08:49 07/07/17 08:49 07/07/17 08:49 07/07/17 08:49 Microbiology 07/06/17 16:20 Respiratory Panel (PCR) - Final Nasal, Sinus - Swab No Organism Detected 07/03/17 16:59 Gram Stain - Final Cerebral Spinal Fluid CSF Culture - Final Laboratory Results 07/07/17 04:30 07/07/17 04:30 07/06/17 07/07/17 07/08/17 05:59 05:59 05:59 Intake Total 990 2837 Output Total 202 Balance 788 2837 - Physical Exam General Appearance: WD/WN, alert, no apparent distress, non-toxic Respiratory: lungs clear, normal breath sounds, No respiratory distress Cardiac/Chest: regular rate, rhythm, No tachycardia Extremities: non-tender, normal inspection Skin: normal color, warm/dry, No rash Neuro/Psych: alert, normal mood/affect, oriented x 3 ICD10 Worksheet Patient Problems: Problems Problem Status Onset Altered mental status Acute Hemophagocytic lymphohistiocytosis Acute Palliative care encounter Acute Thrombocytopenia Acute Acquired pancytopenia Acute Fever Acute Hyponatremia Acute Intracranial hemorrhage Acute Liver enzyme elevation Acute Pancytopenia due to antineoplastic chemotherapy Acute Respiratory failure Acute
--- NOTE | 2017-07-07 15:16 | SOAPPROG ---
SOAP Progress Note Assessment/Plan: Assessment: Assessment: E&M for HLH * Hemophagocytic Lymphohistocytosis: Currently, she is NOT interested in Hospice/BSC. We will therefore continue care with antibiotics/transfusion support. She is 23 days out from her last alemtuzumab therapy (last dose 2016). She refused potentially curative therapy with cord blood transplant. She still wants palliative treatment is feasible. Her lymphocytes are still low. Her low counts could be still from alemtuzumab vs. progression of underlying HLH (or both). She wants to proceed with etoposide/dex, although am quite pessimistic it will be of benefit. Discussed with patient and . * Febrile Neutropenia: currently on abx and cultures negative. Could be due to underlying HLH. Will continue for now. * Pancytopenia:plts 42, possible txn tomorrow Plan: - continue abx - etoposide/dex - probably tomorrow 40 min spent in discussion/at bedside/coordination of care. Plan: 07/07/17 15:12 Subjective: She is arousable, coherent but drowsy Objective: Vital Signs Temp Pulse Resp BP Pulse Ox 98 F 83 16 114/72 98 07/07/17 15:06 07/07/17 15:06 07/07/17 15:06 07/07/17 15:06 07/07/17 15:06 Microbiology 07/06/17 16:20 Respiratory Panel (PCR) - Final Nasal, Sinus - Swab No Organism Detected 07/03/17 16:59 Gram Stain - Final Cerebral Spinal Fluid CSF Culture - Final Laboratory Results 07/07/17 04:30 07/07/17 04:30 07/06/17 07/07/17 07/08/17 05:59 05:59 05:59 Intake Total 990 2837 Output Total 202 Balance 788 2837 PT 16.9 SEC (12.0-15.0) H 07/03/17 Unknown INR 1.37 (0.83-1.16) H 07/03/17 Unknown Physical Exam - Physical Exam General Appearance: mild distress, other (cushingoid) Respiratory: decreased breath sounds Cardiac/Chest: regular rate, rhythm Abdomen: normal bowel sounds, non-tender ICD10 Worksheet Patient Problems: Problems Problem Status Onset Altered mental status Acute Hemophagocytic lymphohistiocytosis Acute Palliative care encounter Acute Thrombocytopenia Acute Acquired pancytopenia Acute Fever Acute Hyponatremia Acute Intracranial hemorrhage Acute Liver enzyme elevation Acute Pancytopenia due to antineoplastic chemotherapy Acute Respiratory failure Acute
--- NOTE | 2017-07-07 15:38 | HOSPPROG ---
Hospitalist Progress Note Assessment/Plan: Assessment: 56-year-old female with HLH presents with neutropenic fever Plan: 1. Hemophagocytic lymphohistiocytosis. Diagnosed approx 1 year ago, curative stem cell transplant declined, now refractory to treatment and clinically declining - s/p platelet and PRBC transfusion, may require another platelet transfusion tomorrow to lower risk of ICH - dex/etoposide has been offered to patient because she states she wants "treatment", but it is not entirely clear if this intervention is consistent with her previously stated goals of care, which were more palliative in nature - d/w palliative care, patient, and , recommend clinical team conferencing tomorrow (Onc, ID, hospitalist) to ensure consistent plan communication w/ patient/, given the delicate nature of this situation 2. Acute encephalopathy. Evidenced by global brain dysfunction characterized as unresponsiveness, acute change from baseline, 2/2 combination of cerebellar structural lesions and metabolic effects of hyponatremia, cognitively AAOx3 today 3. Neutropenic Fever. Acute, persists, likely 2/2 HLH, CDiff/RVP neg - appreciate ID consult, cont meropenem, bactrim, posaconazole, acyclovir 4. Cerebellar lesions. Acute, 2/2 progressive HLH 5. Hyponatremia. Acute, 2/2 SIADH, on fluid restriction, cont monitor daily 6. Hanson's palsy. Cont to offer lubricant PRN 7. h/o intracranial hemorrhage 8. Pancytopenia. 2/2 HLH, cont monitor CBC Diet. Regular PPx. High risk, pharm contraindicated given thrombocytopenia Code. DNR Dispo. ADD uncertain Subjective: Counseled patient and extensively regarding supportive care , providing them with care and reassurance during this challenging time Objective: Vital Signs Temp Pulse Resp BP Pulse Ox 36.6 C 83 16 114/72 98 07/07/17 15:06 07/07/17 15:06 07/07/17 15:06 07/07/17 15:06 07/07/17 15:06 Microbiology 07/06/17 16:20 Respiratory Panel (PCR) - Final Nasal, Sinus - Swab No Organism Detected 07/03/17 16:59 Gram Stain - Final Cerebral Spinal Fluid CSF Culture - Final Laboratory Results 07/07/17 04:30 07/07/17 04:30 08/13/17 08/14/17 08/15/17 05:59 05:59 05:59 Intake Total 990 2837 Output Total 202 Balance 788 2837 PT 16.9 SEC (12.0-15.0) H 07/03/17 Unknown INR 1.37 (0.83-1.16) H 07/03/17 Unknown - Time Spent With Patient Time Spent with Patient: greater than 35 minutes Time Spent with Patient: Greater than 35 minutes spent on this patients care, greater than 50% of time spent counseling, educating, and coordinating care regarding the above mentioned plan. - Physical Exam Constitutional: no apparent distress, not in pain, chronically ill appearing, No uncomfortable Eyes: EOMI Neurologic: other (Right-sided Hanson's palsy) Psychiatric: not anxious, flat affect, No agitated ICD10 Worksheet Patient Problems: Problems Problem Status Onset Altered mental status Acute Hemophagocytic lymphohistiocytosis Acute Palliative care encounter Acute Thrombocytopenia Acute Acquired pancytopenia Acute Fever Acute Hyponatremia Acute Intracranial hemorrhage Acute Liver enzyme elevation Acute Pancytopenia due to antineoplastic chemotherapy Acute Respiratory failure Acute
[2017-07-08 04:19] LABS: ABSOLUTE NRBC COUNT 0.04 10^3/uL (0-0.01); ATYPICAL LYMPHOCYTE FLAG 0 (0-99); FRAGMENT RBC FLAG 0 (0-99); HEMATOCRIT 26.5 % (38.0-47.0); HEMOGLOBIN 9.3 g/dL (12.6-16.3); LIPEMIA HEMOLYSIS FLAG 90 (0-99); MEAN CELL HEMOGLOBIN 31.4 pg (27.9-34.1); MEAN CELL HEMOGLOBIN CONCENTR. 35.1 g/dL (32.4-36.7); MEAN CELL VOLUME 89.5 fL (81.5-99.8); PLATELET CLUMPS FLAG 10 (0-99); RED BLOOD CELL COUNT 2.96 10^6/uL (4.18-5.33); RED CELL DISTRIBUTION WIDTH 16.2 % (11.5-15.2)
[2017-07-08 04:24] LABS: ADD MORPH? NO; LEFT SHIFT FLG 140 (0-99); NRBC-AUTO% 9.3 % (0.0-0.2); PLATELET COUNT 38 10^3/uL (150-400)
[2017-07-08 04:26] LABS: % IMMATURE GRANULYOCYTES 9.3 % (0.0-1.1); ABSOLUTE IMMATURE GRANULOCYTES 0.04 10^3/uL (0.00-0.10)
[2017-07-08 04:27] LABS: ADD DIFF? NO; ADD SCAN? NO
[2017-07-08 04:42] LABS: ALANINE AMINOTRANSFERASE 103 IU/L (9-52); ALKALINE PHOSPHATASE 110 IU/L (38-126); ANION GAP 7 mEq/L (8-16); ASPARTATE AMINOTRANSFERASE 48 IU/L (14-46); CALCIUM 7.6 mg/dL (8.5-10.4); CARBON DIOXIDE 20 mEq/l (22-31); CHLORIDE 103 mEq/L (97-110); CREATININE 0.7 mg/dL (0.6-1.0); GLOMERULAR FILTRATION RATE > 60; GLUCOSE 240 mg/dL (70-100); POTASSIUM 4.2 mEq/L (3.5-5.2); SODIUM 130 mEq/L (134-144); TOTAL PROTEIN 4.2 g/dL (6.3-8.2)
[2017-07-08] MEDS: LEVOTHYROXINE 50 MCG TAB PO SCH (04:53)
[2017-07-08] MEDS: MEROPENEM 1 GM in NS 100 ML IV SCH ×3 (04:53→20:34)
[2017-07-08 05:53] LABS: PLATELET ESTIMATE DECREASED (ADEQ)
[2017-07-08] MEDS: MULTIVITAMINS 1 EACH TAB PO SCH (09:32)
[2017-07-08] MEDS: POSACONAZOLE 100 MG TAB.DR PO SCH (09:32)
[2017-07-08] MEDS: CYCLOSPORINE MODIFIED 100 MG PO SCH ×2 (09:32→20:34)
[2017-07-08] MEDS: ACYCLOVIR 400 MG TAB PO SCH ×2 (09:32→20:34)
--- NOTE | 2017-07-08 10:57 | PCMIDPN ---
Assessment/Plan: Assessment/Plan: 1. Febrile Neutrapenia: - Likely related to undelrying HLH. - infectious work up to date unrevealing: neg blood and urine cx, CXR wihtout pneumonia, Resp pcr neg, CSF not c/w meningitis. c. diff negative. - Currently on empiric merem. - patient, updated on results. -Continue for now 2. Diarrhea: - negative c. diff - will send Stool GI panel Meds Merem 1g 8- bactrim/posa/acyclovir Subjective: Temps better this AM so far but has had intermittent spiking temps. not associated with shaking chills. denies sob. has mild cough. denies abd pain. Having several loose stools. decreased appetite. difficulty taking in solids with facial palsy, per patient. Objective: Vital Signs Temp Pulse Resp BP Pulse Ox 36.8 C 82 16 112/62 96 07/08/17 08:46 07/08/17 08:46 07/08/17 08:46 07/08/17 08:46 07/08/17 08:46 Laboratory Results 07/08/17 04:05 07/08/17 04:05 07/07/17 07/08/17 07/09/17 05:59 05:59 05:59 Intake Total 2837 945 Output Total 3 Balance 2837 942 - Physical Exam General Appearance: alert, no apparent distress, other (facial palsy) EENT: No thrush Respiratory: lungs clear Cardiac/Chest: regular rate, rhythm Extremities: No swelling Abdomen: normal bowel sounds, non-tender, soft, No distended Skin: No erythema ICD10 Worksheet Patient Problems: Problems Problem Status Onset Altered mental status Acute Hemophagocytic lymphohistiocytosis Acute Palliative care encounter Acute Thrombocytopenia Acute Acquired pancytopenia Acute Fever Acute Hyponatremia Acute Intracranial hemorrhage Acute Liver enzyme elevation Acute Pancytopenia due to antineoplastic chemotherapy Acute Respiratory failure Acute
--- NOTE | 2017-07-08 13:03 | GPROG ---
[f rep st] PROGRESS NOTE I discussed the patient's situation with her and her in the presence of her nurse, Christal, today. We have reviewed her course of the HLH, its initial response to treatment, and its relapse. 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 We reviewed the fact that additional treatment at this time probably has a very slim chance of meaningful response and a fairly high risk of additional side effects. At the present time, patient opts not to reinstitute therapy with the HLH regimen and is looking at palliative/ supportive care, and we will engage our social work team to help provide that. /[id number]/MODL MTDD
--- NOTE | 2017-07-08 14:29 | PDPCPN ---
Palliative Care Progress Note Assessment/Plan: HPI: Aranza Garner (Kam) is a 56 yo female with PMH HLH admitted to the hospital with increasing confusion, speech problems and lethargy. Found to have worsening disease on MRI with progression of her HLH that seems refractory to therapy. She had been possibly planning a stem cell transplant for cure but per family had recently decided against doing this. Clinical status continues to decline with lethargy and acute encephalopathy. Palliative care consulted for complex medical decision making. Met with Anil and Rylan at the bedside today. Anil stated her discussion with Dr Pires this morning was helpful and understands there are no more options and her life expectancy is very short. We discussed hospice care. Anil does not want to at home because of her 4 daughters. Discussed inpt hospice vs nursing facility with hospice care. They would like to continue to use [facility]. Assessment: Physical: - Pain: denies pain - tylenol PRN - Dyspnea: poss with aspiration - oxygen as needed - opiates if needed for more severe discomfort of dyspnea roxanol 5mg pO Q2hr PRN - weakness - full nursing support Emotional/psychological: well supported by her family and mosque family Advanced Care Planning: Is patient decisional?: Yes Code Status: DNR POA: Rylan is MDPOA Plan: Anil is now ready for hospice. They would like to continue to use [facility] care and are hoping for [facility] inpt hospice as Anil does not want to be at home. CM to contact [facility] to eval for inpt hospice. started conversation about might need another setting if inpt is not available. Subjective: I'm doing ok Objective: Vital Signs Temp Pulse Resp BP Pulse Ox 36.8 C 82 16 112/62 96 07/08/17 08:46 07/08/17 08:46 07/08/17 08:46 07/08/17 08:46 07/08/17 08:46 Laboratory Results 07/08/17 04:05 07/08/17 04:05 07/07/17 07/08/17 07/09/17 05:59 05:59 05:59 Intake Total 2837 945 Output Total 3 Balance 2837 942 PT 16.9 SEC (12.0-15.0) H 07/03/17 Unknown INR 1.37 (0.83-1.16) H 07/03/17 Unknown Physical Exam - Physical Exam General Appearance: alert, no apparent distress Respiratory: No respiratory distress, No accessory muscle use Skin: normal color, warm/dry Extremities: pedal edema (mild) Neuro/Psych: alert, oriented x 3 ICD10 Worksheet Patient Problems: Problems Problem Status Onset Altered mental status Acute Hemophagocytic lymphohistiocytosis Acute Palliative care encounter Acute Thrombocytopenia Acute Acquired pancytopenia Acute Fever Acute Hyponatremia Acute Intracranial hemorrhage Acute Liver enzyme elevation Acute Pancytopenia due to antineoplastic chemotherapy Acute Respiratory failure Acute - ICD10 Problem Qualifiers (1) Palliative care encounter
--- NOTE | 2017-07-08 14:42 | HOSPPROG ---
Hospitalist Progress Note Assessment/Plan: Discussed with patient, , Debbie Colby, Dr Lexis CM. I agree with the decision to proceed with comfort/supportive care, and agree with hospice evaluation. I discussed hospice directly with Ms Garner, and she appears to understand what this means and the implications. # HLH - curative marrow transplant declined - no more chemo as above - does not need transfusion today, likely not appropriate regardless # febrile neutropenia - infectious w/u unrevealing # acute encephalopathy - better today; multifactorial # pancytopenia # cerebellar lesions - d/t HLH # hyponatremia - SIADH, fluid restrict # h/o intracranial hemorrhage # torres's palsy Subjective: comfortable, laying in bed; answers questions appropriately Objective: Vital Signs Temp Pulse Resp BP Pulse Ox 36.8 C 82 16 112/62 96 07/08/17 08:46 07/08/17 08:46 07/08/17 08:46 07/08/17 08:46 07/08/17 08:46 Laboratory Results 07/08/17 04:05 07/08/17 04:05 07/07/17 07/08/17 07/09/17 05:59 05:59 05:59 Intake Total 2837 945 Output Total 3 Balance 2837 942 PT 16.9 SEC (12.0-15.0) H 07/03/17 Unknown INR 1.37 (0.83-1.16) H 07/03/17 Unknown laying in bed, comfortable - Time Spent With Patient Time Spent with Patient: greater than 35 minutes Time Spent with Patient: Greater than 35 minutes spent on this patients care, greater than 50% of time spent counseling, educating, and coordinating care regarding the above mentioned plan. ICD10 Worksheet Patient Problems: Problems Problem Status Onset Altered mental status Acute Hemophagocytic lymphohistiocytosis Acute Palliative care encounter Acute Thrombocytopenia Acute Acquired pancytopenia Acute Fever Acute Hyponatremia Acute Intracranial hemorrhage Acute Liver enzyme elevation Acute Pancytopenia due to antineoplastic chemotherapy Acute Respiratory failure Acute
[2017-07-09] MEDS: MEROPENEM 1 GM in NS 100 ML IV SCH (05:13)
[2017-07-09] MEDS: LEVOTHYROXINE 50 MCG TAB PO SCH (05:13)
[2017-07-09 05:27] LABS: ABSOLUTE NRBC COUNT 0.07 10^3/uL (0-0.01); FRAGMENT RBC FLAG 0 (0-99); HEMOGLOBIN 8.8 g/dL (12.6-16.3); LIPEMIA HEMOLYSIS FLAG 90 (0-99); MEAN CELL HEMOGLOBIN 31.8 pg (27.9-34.1); MEAN CELL HEMOGLOBIN CONCENTR. 35.2 g/dL (32.4-36.7); MEAN CELL VOLUME 90.3 fL (81.5-99.8); PLATELET CLUMPS FLAG 0 (0-99); RED BLOOD CELL COUNT 2.77 10^6/uL (4.18-5.33); RED CELL DISTRIBUTION WIDTH 16.1 % (11.5-15.2)
[2017-07-09 05:49] LABS: ATYPICAL LYMPHOCYTE FLAG 100 (0-99); LEFT SHIFT FLG 210 (0-99)
[2017-07-09 05:51] LABS: ADD MORPH? NO
[2017-07-09 05:52] LABS: ADD SCAN? NO; PLATELET COUNT 23 10^3/uL (150-400)
[2017-07-09 05:58] LABS: ALANINE AMINOTRANSFERASE 85 IU/L (9-52); ALBUMIN 2.1 g/dL (3.5-5.0); ALKALINE PHOSPHATASE 101 IU/L (38-126); ANION GAP 7 mEq/L (8-16); ASPARTATE AMINOTRANSFERASE 39 IU/L (14-46); BILIRUBIN,TOTAL 1.8 mg/dL (0.1-1.4); CALCIUM 7.7 mg/dL (8.5-10.4); CARBON DIOXIDE 21 mEq/l (22-31); CHLORIDE 106 mEq/L (97-110); CREATININE 0.7 mg/dL (0.6-1.0); GLOMERULAR FILTRATION RATE > 60; GLUCOSE 119 mg/dL (70-100); POTASSIUM 3.9 mEq/L (3.5-5.2); SODIUM 134 mEq/L (134-144); TOTAL PROTEIN 4.2 g/dL (6.3-8.2)
[2017-07-09 06:09] LABS: ABSOLUTE IMMATURE GRANULOCYTES 0.07 10^3/uL (0.00-0.10); ADD DIFF? NO
[2017-07-09 06:29] LABS: PLATELET ESTIMATE DECREASED (ADEQ)
[2017-07-09] MEDS: MULTIVITAMINS 1 EACH TAB PO SCH (09:16)
[2017-07-09] MEDS: POSACONAZOLE 100 MG TAB.DR PO SCH (09:16)
[2017-07-09] MEDS: DEXAMETHASONE 4 MG TAB PO SCH (09:16)
[2017-07-09] MEDS: CYCLOSPORINE MODIFIED 100 MG PO SCH (09:17)
[2017-07-09] MEDS: ACYCLOVIR 400 MG TAB PO SCH (09:17)
--- NOTE | 2017-07-09 11:06 | PDIAF ---
- Diagnosis Diagnosis: HLH Code Status: Do Not Resuscitate - Medication Management Discharge Medications: Medications to Continue on Transfer Acyclovir [Zovirax 400 mg (*)] 400 mg PO BID 07/03/17 [Last Taken Unknown] Nystatin Susp [Mycostatin Oral Liquid] 5 ml PO DAILY PRN 07/03/17 [Last Taken Unknown] Sulfamethox/Tmp 800/160 mg [Bactrim DS] 1 tab PO SUSA 07/03/17 [Last Taken Unknown] Petrolat,Wht/Min Oil/Sod Chl [Refresh P.m. Ointment] 1 marck EACHE HS PRN #0 opht.oint 07/09/17 [Last Taken Unknown] Discharge Medications: Refer to the Discharge Home Medication list for PRN reason. - Orders Services needed: Registered Nurse, Certified Component Design Engineer, Master Rn Anesthesiology Diet Recommendation: no restrictions on diet Diet Texture: Dysphagia 3 - Advanced - Moist, Bite-Size, Thin Liquids, Meds Whole w/Liquids, Meds Whole in Puree - Follow Up Care Current Providers and Referrals: Ronal Fuentes DO [Primary Care Provider] - As per Instructions
--- NOTE | 2017-07-09 11:33 | SOAPPROG ---
SOAP Progress Note Assessment/Plan: Assessment: Assessment: E&M for HLH * Hemophagocytic Lymphohistocytosis: She has decided with her family on hospice care Plan: to hospice Subjective: More confused Objective: Vital Signs Temp Pulse Resp BP Pulse Ox 99.3 F 84 18 126/74 H 94 07/09/17 08:25 07/09/17 08:25 07/09/17 08:25 07/09/17 08:25 07/09/17 08:25 Microbiology 07/04/17 04:55 Blood Culture - Final Blood 07/04/17 04:55 Blood Culture - Final Blood 07/08/17 13:01 Gastrointestinal Tract Panel (PCR) - Final Stool No Organism Detected Laboratory Results 07/09/17 05:15 07/09/17 05:15 07/08/17 07/09/17 07/10/17 05:59 05:59 05:59 Intake Total 945 1170 Output Total 3 Balance 942 1170 PT 16.9 SEC (12.0-15.0) H 07/03/17 Unknown INR 1.37 (0.83-1.16) H 07/03/17 Unknown ICD10 Worksheet Patient Problems: Problems Problem Status Onset Altered mental status Acute Hemophagocytic lymphohistiocytosis Acute Palliative care encounter Acute Thrombocytopenia Acute Acquired pancytopenia Acute Fever Acute Hyponatremia Acute Intracranial hemorrhage Acute Liver enzyme elevation Acute Pancytopenia due to antineoplastic chemotherapy Acute Respiratory failure Acute
--- NOTE | 2017-07-09 12:06 | GDS ---
[f rep st] DISCHARGE SUMMARY FINAL DIAGNOSES: 1. Hemophagocytic lymphohistiocytosis. 2. Febrile neutropenia. 3. Acute encephalopathy. 4. Pancytopenia. 5. Cerebellar lesions. 6. Hyponatremia. 7. History of intracranial hemorrhage. 8. Hanson's palsy. HOSPITAL COURSE: This is a 56-year-old female with a known diagnosis of HLH. She had received chemotherapy treatment. She had been seen by an HLH specialist in [place], who had offered a stem cell transplant though felt that this would unlikely be curative. They appropriately had declined this. She was readmitted to this hospital with acute encephalopathy. This is likely multifactorial in the setting of progressive HLH with known cerebellar lesions, SIADH, fever. I, as well as other providers, including Dr. Pires have had long conversations with the patient as well as her . I spoke with both of them yesterday regarding the plan to go to hospice. The patient herself was more lucid yesterday than she is today, she did seem to understand what this meant, and she was agreeable that this would be the right course for her. Today , however, she is less lucid. Given the very slim chance that any further treatment with chemotherapy will be beneficial, I agree that this is the right decision. I discussed this with Dr. Pires, who also feels this. Thus she will be discharged to hospice today. I will continue her prophylactic antibiotics, though no clear acute infectious source had been found to account for her febrile neutropenia. This was more likely related to the HLH disease process itself. Her mental status has been waxing and waning. Her is very involved in her care and appropriately quite distressed and saddened over this course of events. DISPOSITION: I spent more than 30 minutes on the day of discharge coordinating care. /[id number]/MODL MTDD
[2017-07-09 12:24] VITALS: BP 124/82; PULSE 91; RESP 17; TEMP 98; O2SAT 97
== END 2017-07-09 13:05 | disposition hospice, home (50) | DRG 71 ==
LOC: EDUNIT# → F1N 16:08
PROVIDERS: ADMIT Family Medicine; ATTEND Family Medicine
PROC: 009U3ZX Drainage of Spinal Canal, Percutaneous Approach, Diagnostic (ICD-10-PCS; principal; 2017-07-03)
PROC: 30233R1 Transfusion of Nonautologous Platelets into Peripheral Vein, Percutaneous Approach (ICD-10-PCS; 2017-07-05)
PROC: 30233N1 Transfusion of Nonautologous Red Blood Cells into Peripheral Vein, Percutaneous Approach (ICD-10-PCS; 2017-07-06)
DX: G93.49 Other encephalopathy (principal); D76.1 Hemophagocytic lymphohistiocytosis; E87.1 Hypo-osmolality and hyponatremia; D61.818 Other pancytopenia; D70.9 Neutropenia, unspecified; G51.0 Bell's palsy; E03.9 Hypothyroidism, unspecified; H11.421 Conjunctival edema, right eye
CPT/HCPCS: 80158-90; 92523-GN; 92610-GN; 97110-GP; 97116-GP; 97161-GP; 97167-GO; 97530-GO; 97530-GP; 97535-GO; A9585; J1200; J2185; J2997; J3370; J7502; P9016; P9040; Q9988